=== PATIENT | male | born 1925 | race Caucasian/White ===

== ENCOUNTER 2017-06-28 15:57 | Inpatient (IN) ==
--- NOTE | 2017-06-28 16:00 | Emergency Department Note ---
Disposition Clinical Impression: HCAP (healthcare-associated pneumonia), Elevated troponin Disposition: Admitted As Inpatient Condition: Fair General Adult HPI - General Chief complaint: ED Shortness of Breath/Dyspnea Stated complaint: YAMILET, elevated troponin Time Seen by Provider: 06/28/17 15:59 - Related Data Home Medications Medication Instructions Recorded Confirmed Acetaminophen [Tylenol] 650 mg PO Q6H PRN 06/28/17 06/28/17 Alendronate Sodium [Fosamax] 70 mg PO QWEEK 06/28/17 06/28/17 Calcium Carbonate/Vitamin D3 1 each PO BID 06/28/17 06/28/17 [Calcium 250+D Tablet] Cetirizine HCl [Zyrtec] 10 mg PO DAILY 06/28/17 06/28/17 Cranberry 800 mg PO DAILY 06/28/17 06/28/17 Furosemide [Lasix] 20 mg PO DAILY 06/28/17 06/28/17 Leflunomide [Leflunomide] 10 mg PO Q48H 06/28/17 06/28/17 Memantine HCl 10 mg PO BID 06/28/17 06/28/17 Metoprolol XL (24 HR) Succ [Toprol 12.5 mg PO DAILY 06/28/17 06/28/17 XL] Potassium Chloride [Klor-Con 10] 10 meq PO DAILY 06/28/17 06/28/17 Tiotropium [Spiriva] 18 mcg IH 0700 06/28/17 06/28/17 Vit C/E/Zn/Coppr/Lutein/Zeaxan 1 cap PO BID 06/28/17 06/28/17 [Preservision Areds 2 Softgel] Xyzal 5 mg PO DAILY 06/28/17 06/28/17 Allergies Allergy/AdvReac Type Severity Reaction Status Date / Time levofloxacin [From Levaquin] Allergy See Verified 06/28/17 16:59 Comments lisinopril Allergy Swelling Verified 06/28/17 17:00 of Lip/Tongue/Throat methotrexate Allergy See Verified 06/28/17 17:00 Comments naproxen [From Aleve] Allergy Swelling Verified 06/28/17 17:00 of Lip/Tongue/Throat Donepezil [From Aricept] AdvReac See Verified 06/28/17 17:27 Comments Course Vital Signs Temperature 97.3 F L 06/28/17 15:59 Pulse Rate 78 06/28/17 15:59 Respiratory Rate 16 06/28/17 15:59 Blood Pressure 129/83 06/28/17 15:59 O2 Sat by Pulse Oximetry 92 06/28/17 15:59 Temperature 98.0 F 06/29/17 12:19 Pulse Rate 65 06/29/17 12:19 Respiratory Rate 16 06/29/17 12:19 Blood Pressure 111/58 06/29/17 12:19 O2 Sat by Pulse Oximetry 98 06/29/17 12:19 Oxygen Delivery Oxygen Delivery Room Air Medical Decision Making - Lab Data Result diagrams: 06/29/17 05:45 06/29/17 05:45 Lab Results 06/28/17 06/28/17 06/28/17 Range/Units 03:15 16:13 16:13 Lactic Acid 1.1 (0.5-2.2) mmol/L Troponin I 0.11 H* (< 0.04) ng/mL Urine Color Yellow (Yellow) Urine Clarity Clear (Clear) Urine pH 6.0 (5.0-8.0) pH Units Ur Specific [place] 1.019 (1.010-1.025) Urine Protein 30 H (Neg-Trace) mg/dL Urine Glucose (UA) Normal (Normal) mg/dL Urine Ketones Negative (Negative) mg/dL Urine Blood Moderate H (Negative) Urine Nitrite Negative (Negative) Urine Bilirubin Negative (Negative) Urine Urobilinogen Normal (Normal) mg/dL Ur Leukocyte Esterase Moderate H (Negative) Urine Microscopic RBC 3-5 H (0-3) per hpf Urine Microscopic WBC 30-50 H (0-3) per hpf Ur Squamous Epith Cells Many H (None-Few) per lpf Urine Bacteria None Seen (None-Few) per hpf Hyaline Casts None Seen (None-Few) per lpf Attestation Statement - Attestation Attestation: I examined this patient and my medical decision-making was reviewed with the Resident Physician. I agree with the documented findings, disposition and treatment plan as described except to the extent set forth below. [id number] time provided Patient arrives as a transfer from the [facility] due to suspected pneumonia and an elevated troponin. The patient does not appear in any acute distress on exam upon arrival
--- NOTE | 2017-06-28 16:05 | Emergency Department Note ---
Disposition Clinical Impression: HCAP (healthcare-associated pneumonia), Elevated troponin Disposition: Admitted As Inpatient Condition: Fair Forms: ED Satisfaction Letter Time of Disposition: 18:20 SOB HPI - General Chief Complaint: ED Shortness of Breath/Dyspnea Stated Complaint: YAMILET, elevated troponin Time Seen by Provider: 06/28/17 15:59 Source: patient, EMS Mode of arrival: EMS Limitations: age Nursing Notes Reviewed: Yes Vital Signs Reviewed: Yes - History of Present Illness Patient presents to the ED via EMS as a transfer from the [place] for pneumonia and elevated troponin. Patient history is slightly limited by difficulty hearing and age. States she has been having some trouble breathing for the past few days. Denies any chest pain. Does have a history of A. fib and is on Coumadin. States he feels okay otherwise. - Related Data Home Medications Medication Instructions Recorded Confirmed Acetaminophen [Tylenol] 650 mg PO Q6H PRN 06/28/17 06/28/17 Alendronate Sodium [Fosamax] 70 mg PO QWEEK 06/28/17 06/28/17 Calcium Carbonate/Vitamin D3 1 each PO BID 06/28/17 06/28/17 [Calcium 250+D Tablet] Cetirizine HCl [Zyrtec] 10 mg PO DAILY 06/28/17 06/28/17 Cranberry 800 mg PO DAILY 06/28/17 06/28/17 Furosemide [Lasix] 20 mg PO DAILY 06/28/17 06/28/17 Leflunomide [Leflunomide] 10 mg PO Q48H 06/28/17 06/28/17 Memantine HCl 10 mg PO BID 06/28/17 06/28/17 Metoprolol XL (24 HR) Succ [Toprol 12.5 mg PO DAILY 06/28/17 06/28/17 XL] Potassium Chloride [Klor-Con 10] 10 meq PO DAILY 06/28/17 06/28/17 Tiotropium [Spiriva] 18 mcg IH 0700 06/28/17 06/28/17 Vit C/E/Zn/Coppr/Lutein/Zeaxan 1 cap PO BID 06/28/17 06/28/17 [Preservision Areds 2 Softgel] Xyzal 5 mg PO DAILY 06/28/17 06/28/17 Allergies Allergy/AdvReac Type Severity Reaction Status Date / Time levofloxacin [From Levaquin] Allergy See Verified 06/28/17 16:59 Comments lisinopril Allergy Swelling Verified 06/28/17 17:00 of Lip/Tongue/Throat methotrexate Allergy See Verified 06/28/17 17:00 Comments naproxen [From Aleve] Allergy Swelling Verified 06/28/17 17:00 of Lip/Tongue/Throat Donepezil [From Aricept] AdvReac See Verified 06/28/17 17:27 Comments All systems ED: reviewed and negative except as stated. Constitutional: Denies: fever Cardiovascular: Denies: chest pain Respiratory: Reports: cough, dyspnea Gastrointestinal: Denies: vomiting Musculoskeletal: Denies: back pain Past Medical History - Past Medical History Attestation: Yes The following information was validated with the patient. Source: patient Physical Exam - General Limitations: age General appearance: alert, in no apparent distress - Head Head exam: atraumatic, normocephalic, normal inspection - Eye Eye exam: Present: normal appearance, PERRL, EOMI - Neck Neck exam: Present: normal inspection, full ROM - Chest Chest inspection: Present: normal inspection - Respiratory Respiratory exam: Present: other (decreased breath sounds b/l ). Absent: normal lung sounds bilaterally - Cardiovascular Cardiovascular exam: Present: irregular rhythm, systolic murmur - Abdominal Exam Abdominal exam: Present: soft, Non-Tender. Absent: tenderness, distention, guarding, rebound, rigidity - Extremities Exam Extremities exam: Present: normal inspection, full ROM. Absent: tenderness, pedal edema - Neurological Exam Neurological exam: Present: alert, oriented X3 - Psychiatric Psychiatric exam: Present: normal affect, normal mood - Skin Skin exam: Present: warm, dry, intact, normal color Course - Reevaluation(s) Reevaluation #1: Patient has pneumonia. Started on antibiotics. We will admit to the hospitalist service. Vital Signs Temperature 97.3 F L 06/28/17 15:59 Pulse Rate 78 06/28/17 15:59 Respiratory Rate 16 06/28/17 15:59 Blood Pressure 129/83 06/28/17 15:59 O2 Sat by Pulse Oximetry 92 06/28/17 15:59 Temperature 97.3 F L 06/28/17 15:59 Pulse Rate 68 06/28/17 17:40 Respiratory Rate 14 06/28/17 17:40 Blood Pressure 108/57 06/28/17 17:40 O2 Sat by Pulse Oximetry 96 06/28/17 17:40 Oxygen Delivery Oxygen Delivery Nasal Cannula Shortness of Breath/Dyspnea - Medical Records Medical records reviewed: Yes I reviewed the patient's medical records. - Lab Data Lab results reviewed: Yes I reviewed the patient's lab results. Lab Results 06/28/17 06/28/17 Range/Units 16:13 16:13 Lactic Acid 1.1 (0.5-2.2) mmol/L Troponin I 0.11 H* (< 0.04) ng/mL - Radiology Data Radiology results reviewed: Yes I reviewed the patient's radiology results. - EKG Data EKG attestation: Yes I reviewed and interpreted this EKG. EKG results narrative: Sinus rhythm with PVCs, right bundle branch block, ST-T wave changes. Septal ST /Twave changes which are similar to previous from 2010
[2017-06-28] MEDS ORDERED: Levofloxacin 500 MG/100 ML 500 MG/100 ML BAG IVPB ONE (16:51)
[2017-06-28] MEDS ORDERED: Vancomycin 1,000 MG in D5% in Water 250 ML IVPB ONE (16:51)
[2017-06-28] MEDS ORDERED: Piperacillin/Tazobactam 3.375 GM in Water for inj. (sterile) 20 ML IVP ONE (17:07)
[2017-06-28] MEDS ORDERED: Azithromycin 500 MG in D5% in Water 250 ML IVPB ONE (17:08)
[2017-06-28] MEDS ORDERED: Albuterol 2.5 MG/3 ML NEBULIZER IH PRN (20:44)
[2017-06-28] MEDS ORDERED: Acetaminophen 325 MG TABLET PO PRN (20:44)
[2017-06-28] MEDS ORDERED: Naloxone 0.4 MG/ML INJ IVP PRN (20:45)
[2017-06-28] MEDS ORDERED: NON-FORMULARY MEDICATION 1 EACH EACH (Alendronate Sodium [Fosamax] 70 MG) PO SCH (20:45)
--- NOTE | 2017-06-28 20:53 | Internal Med History&Physical ---
Date of Encounter: 06/28/17 Time of Encounter: 20:49 Assessment and Plan (1) Multifocal pneumonia Current visit: Yes Status: Acute Patient presents with dyspnea most likely secondary to multifocal pneumonia as diagnosed by chest radiograph. No prior history of structural lung disease. Has not had any recent health care facility stays or antibiotic use in the last 90 days. UA to assess for strep pne. and Legionella Send sputum for culture Emperic antibiotic therapy with vancomycin and sometime Obtain blood cultures- follow culture results CBC D and BMP in the a.m. Tylenol 650 mg by mouth every 6 hours when necessary for pain or fever Resume home medications Heparin 5000 units subcutaneous twice a day Continuous SPO2 monitoring in telemetry 2 Duonebs every 4 hours scheduled with Albuterol Q2 if persistent wheezing/SOB Serial troponin d/t elevation likely associated with Sepsis (2) Sepsis Current visit: Yes Status: Acute Sepsis secondary to PNA. Patient experiencing dyspnea, and cough productive of sputum. Additionally, he has generalized weakness as well as fatigue. Does not appear to be in respiratory distress at this time. Resting comfortably on 2.5 LNC. Remains hemodynamically stable. See plan above Qualifiers: Qualified Code(s): A41.9 - Sepsis, unspecified organism (3) Falls Current visit: Yes Status: Acute Reporting that he fell the last two morning prior to admission. Reports new generalized weakness and fatigued secondary to PNA and Sepsis. Will obtain PT/OT evaluation prior to discharge Qualifiers: Encounter type: initial encounter Qualified Code(s): W19.XXXA - Unspecified fall, initial encounter (4) Generalized weakness Current visit: Yes Status: Acute Reporting generalized weakness over the last two weeks. Additionally reporting fatigue, cough, SOB, caused by PNA and sepsis. See plan above. (5) COPD (chronic obstructive pulmonary disease) Current visit: Yes Status: Acute History of COPD. appears stable, see plan above. Qualifiers: Qualified Code(s): J44.9 - Chronic obstructive pulmonary disease, unspecified (6) Iron deficiency anemia Current visit: Yes Status: Acute Unspecified iron deficiency anemia. No prior labs for comparison. H&H is 10.5/ 33.2. Denies any active bleeding. Recheck CBCD in the morning Qualifiers: Iron deficiency anemia type: unspecified iron deficiency Qualified Code(s) : D50.9 - Iron deficiency anemia, unspecified (7) A-fib Current visit: Yes Status: Acute History of atrial fibrillation. Unsure if he is on any anticoagulation and he is a poor historian, however, I do not see any on his medication list from the [facility]. Check PT/INR Qualifiers: Atrial fibrillation type: unspecified Qualified Code(s): I48.91 - Unspecified atrial fibrillation (8) DVT prophylaxis Current visit: Yes Status: Acute Heparin 5000 units subcutaneous twice a day Internal Medicine - H&P: HPI Chief complaint: Dyspnea Admitted From: Home Plans for Post Hospital Care: Home History of present illness: Mr. Shepherd is a 89 year old male past medical history of atrial fibrillation, iron deficiency anemia, Alzheimer's disease, COPD. Presents to [facility] today from [facility] with dyspnea 2 days. All information obtained from chart review and family at bedside as the patient is mildly demented and [employer]. Family reports over the last couple of days patient has had an increase in shortness of breath, cough with sputum production and rigors. Denies any fevers, night sweats, extremity swelling/pain, edema, CP, abdominal pain, N/V/D. He has not had any recent healthcare facility stays or ATB use in the last 90 days. Additionally the family and patient are concerned that he has fallen the past two mornings. They report that during the first fall on 06/26/17 he hit his head although CT head at the [facility] was unremarkable. He is being admitted for further evaluation and monitoring d/t multiple falls and suspected PNA. Past Med Surg Social Fam HX - Past Medical History Medical history: non-contributory, arthritis, other - Past Surgical History Surgical History: appendectomy - Social History Smoking Status: Never smoker Smokeless Tobacco Status: No Alcohol use: none Drug use: none - Additional Family History Additional family history: Noncontributory Internal Medicine - H&P: Meds Acetaminophen [Tylenol] 650 mg PO Q6H PRN 06/28/17 [History] Alendronate Sodium [Fosamax] 70 mg PO QWEEK 06/28/17 [History] Calcium Carbonate/Vitamin D3 [Calcium 250+D Tablet] 1 each PO BID 06/28/17 [ History] Cetirizine HCl [Zyrtec] 10 mg PO DAILY 06/28/17 [History] Cranberry 800 mg PO DAILY 06/28/17 [History] Furosemide [Lasix] 20 mg PO DAILY 06/28/17 [History] Leflunomide [Leflunomide] 10 mg PO Q48H 06/28/17 [History] Memantine HCl 10 mg PO BID 06/28/17 [History] Metoprolol XL (24 HR) Succ [Toprol XL] 12.5 mg PO DAILY 06/28/17 [History] Potassium Chloride [Klor-Con 10] 10 meq PO DAILY 06/28/17 [History] Tiotropium [Spiriva] 18 mcg IH 0700 06/28/17 [History] Vit C/E/Zn/Coppr/Lutein/Zeaxan [Preservision Areds 2 Softgel] 1 cap PO BID 06/28 [History] Xyzal 5 mg PO DAILY 06/28/17 [History] 3 Allergy/AdvReac Type Severity Reaction Status Date / Time levofloxacin [From Levaquin] Allergy See Verified 06/28/17 16:59 Comments lisinopril Allergy Swelling Verified 06/28/17 17:00 of Lip/Tongue/Throat methotrexate Allergy See Verified 06/28/17 17:00 Comments naproxen [From Aleve] Allergy Swelling Verified 06/28/17 17:00 of Lip/Tongue/Throat Donepezil [From Aricept] AdvReac See Verified 06/28/17 17:27 Comments All Systems PM: A 10-system review of systems was performed and is negative for pertinent findings except as documented above in the HPI. Review of systems: REVIEW OF SYSTEMS GENERAL: Negative for any nausea, vomiting, fevers, chills, or weight loss. NEUROLOGIC: Negative for any blurry vision, blind spots, double vision, facial asymmetry, dysphagia, dysarthria, hemiparesis, hemisensory deficits. Positive for dizziness, generalized weakness HEENT: Negative for any head trauma, neck trauma, neck stiffness, photophobia, phonophobia, sinusitis, rhinitis. CARDIAC: Negative for any chest pain, dyspnea on exertion, paroxysmal nocturnal dyspnea, peripheral edema. PULMONARY: Positive for dyspnea, productive cough GASTROINTESTINAL: Negative for any abdominal pain, nausea, vomiting, bright red blood per rectum, melena. GENITOURINARY: Negative for any dysuria, hematuria, incontinence. INTEGUMENTARY: Negative for any rashes, cuts, insect bites. RHEUMATOLOGIC: Negative for any joint pains, photosensitive rashes, history of vasculitis or kidney problems. HEMATOLOGIC: Negative for any abnormal bruising, frequent infections or bleeding. - Constitutional Vitals: Temp Pulse Resp BP Pulse Ox 97.4 F L 92 16 148/70 95 06/28/17 20:16 06/28/17 20:16 06/28/17 20:16 06/28/17 20:16 06/28/17 20:16 General appearance: Present: cooperative, A&O X 1, answers questions appropriately Exam: PHYSICAL EXAMINATION: GENERAL: The patient is a well-developed, well-nourished male in no apparent distress. He is alert and oriented x3. VITAL SIGNS: Temperature 97.4, heart rate 92, respiratory rate 16 and 95% on 2.5 L nasal cannula, blood pressure 140/70 HEENT: Head is normocephalic and atraumatic. Extraocular muscles are intact. Pupils are equal, round, and reactive to light and accommodation. Nares appeared normal. Mouth is well hydrated and without lesions. Mucous membranes are moist. Posterior pharynx clear of any exudate or lesions. NECK: Supple. No carotid bruits. No lymphadenopathy or thyromegaly. LUNGS: Rhonchi per auscultation embolus right anterior and posterior lobe, diminished breath sounds throughout HEART: Regular rate and rhythm without murmur. ABDOMEN: Soft, nontender, and nondistended. Positive bowel sounds. No hepatosplenomegaly was noted. EXTREMITIES: Without any cyanosis, clubbing, rash, lesions or edema. NEUROLOGIC: Cranial nerves II through XII are grossly intact. PSYCHIATRIC: Flat affect, but denies suicidal or homicidal ideations. SKIN: No ulceration or induration present. Internal Med - H&P Results - EKG Data -: EKG Interpreted by Myself EKG shows normal: sinus rhythm Rate: normal - EKG Data EKG comments: 06/28/17 20:57 Sinus rhythm with PVCs - Diagnostic Studies Chest x-ray Status: image reviewed by me Additional comments: Multifocal airspace opacities are noted throughout right lung and left perihilar region. This is highly suspicious for multifocal pneumonia
[2017-06-28] MEDS: CALCIUM PO SCH (21:43)
[2017-06-28] MEDS: [UNRECOGNIZED DRUG - OTHER] PO SCH (21:43)
[2017-06-28] MEDS: LEFLUNOMIDE 10 MG PO SCH (21:43)
[2017-06-28] MEDS: Multivit/Ca/Min/Fe/FA 1 TAB TABLET PO SCH (21:49)
[2017-06-28 22:14] LABS: INR 1.5; Prothrombin Time 16.7 Seconds (9.4-12.1)
[2017-06-28] MEDS: Cefepime HCl 1,000 MG in Water for inj. (sterile) 10 ML IVP SCH (23:28)
[2017-06-28] MEDS: Ipratropium/Albuterol Neb 3 ML IH SCH (23:40)
[2017-06-28 23:55] LABS: Adenovirus Not Detected (Not Detect); Bordetella Pertussis Not Detected (Not Detect); Chlamydophila pneumoniae Not Detected (Not Detect); Coronavirus 229E Not Detected (Not Detect); Coronavirus HKU1 Not Detected (Not Detect); Coronavirus NL63 Not Detected (Not Detect); Coronavirus OC43 Not Detected (Not Detect); Human Metapneumovirus Not Detected (Not Detect); Human Rhinovirus/Enterovirus Not Detected (Not Detect); Influenza A Subtype 2009 H1 Not Detected (Not Detect); Influenza A Untypeable Not Detected (Not Detect); Influenza B Not Detected (Not Detect); Mycoplasma pneumoniae Not Detected (Not Detect); Parainfluenza Virus 1 Not Detected (Not Detect); Parainfluenza Virus 2 Not Detected (Not Detect); Parainfluenza Virus 3 Not Detected (Not Detect); Parainfluenza Virus 4 Not Detected (Not Detect); Respiratory Syncytial Virus Not Detected (Not Detect)
[2017-06-29] MEDS ORDERED: Cefepime HCl 1,000 MG in D5% in Water (Mini-Bag+) 100 ML IVPB SCH
[2017-06-29] MEDS: 0.9 % Sodium Chloride 1,000 ML IVC SCH ×2 (02:56→18:02)
[2017-06-29 03:25] LABS: Bilirubin,Urine Negative (Negative); Blood,Urine Moderate (Negative); Clarity,Urine Clear (Clear); Color,Urine Yellow (Yellow); Glucose,Urine (UA) Normal (Normal); Ketones,Urine Negative (Negative); Leukocyte Esterase,Urine Moderate (Negative); Nitrite,Urine Negative (Negative); Protein,Urine 30 mg/dL (Neg-Trace); Specific Gravity,Urine 1.019 (1.010-1.025); Urobilinogen,Urine Normal (Normal)
[2017-06-29 03:27] LABS: Bacteria,Urine None Seen per hpf (None-Few); Hyaline Casts,Urine None Seen per lpf (None-Few); Squamous Epithelial Cell,Urine Many per lpf (None-Few); WBC,Urine 30-50 per hpf (0-3)
[2017-06-29] MEDS: Ipratropium/Albuterol Neb 3 ML IH SCH ×5 (03:44→21:03)
[2017-06-29] MEDS: *HR* Heparin 5,000 UNIT/ML VIAL SQ SCH ×2 (05:56→18:01)
[2017-06-29 06:29] LABS: Basophils # 0.1 K/mcL (0.0-0.2); Basophils % 0.6 %; Eosinophils # 0.1 K/mcL (0.0-0.6); Eosinophils % 0.7 %; Hematocrit 31.7 % (37.5-50.1); Hemoglobin 9.9 g/dL (12.9-16.9); Immature Granulocytes % 0.9 % (0-4); Lymphocytes % 8.8 %; Mean Corpuscular HGB Conc 31.2 g/dL (31.6-35.5); Mean Corpuscular Hemoglobin 27.5 pg (28.0-33.3); Mean Corpuscular Volume 88.1 fL (83.0-100.0); Mean Platelet Volume 10.4 fL (9.4-12.4); Monocytes # 1.3 K/mcL (0.0-1.3); Monocytes % 11.7 %; Neutrophils # 8.4 K/mcL (1.6-8.9); Platelet Count 247 K/mcL (140-400); Red Cell Distribution Width 14.6 % (11.5-14.5); Segmented Neutrophils % 77.3 %
[2017-06-29 06:39] LABS: BUN/Creatinine Ratio 25 (6-26); Blood Urea Nitrogen 31 mg/dL (8-23); Calcium 8.6 mg/dL (8.6-10.3); Carbon Dioxide 26 mEq/L (23-29); Chloride 106 mEq/L (98-107); Glucose 89 mg/dL (70-105); Osmolality,Calculated 292 (280-300); Sodium 138 mEq/L (136-145); eGFR For African Americans > 60 (> 60); eGFR For Non-African Americans 55 (> 60)
[2017-06-29] MEDS ORDERED: Furosemide 20 MG TABLET PO SCH (09:00)
[2017-06-29] MEDS ORDERED: Vancomycin 750 MG in D5% in Water 250 ML IVPB SCH (09:00)
[2017-06-29] MEDS: Loratadine 10 MG TABLET PO SCH (09:35)
[2017-06-29] MEDS: Multivit/Ca/Min/Fe/FA 1 TAB TABLET PO SCH ×2 (09:35→20:27)
[2017-06-29] MEDS: Metoprolol XL (24 HR) Succ 25 MG TAB.ER.24H PO SCH (09:35)
[2017-06-29] MEDS: Cefepime HCl 1,000 MG in Water for inj. (sterile) 10 ML IVP SCH (09:35)
[2017-06-29] MEDS: (Xyzal 5 MG) PO SCH (09:46)
[2017-06-29] MEDS: CALCIUM PO SCH (09:47)
[2017-06-29] MEDS: [UNRECOGNIZED DRUG - OTHER] PO SCH (09:47)
--- NOTE | 2017-06-29 12:22 | Internal Med Progress Note ---
Date of Encounter: 06/29/17 Time of Encounter: 12:22 - Assessment and plan (1) Sepsis Current Visit: Yes Status: Acute Assessment and plan: Severe sepsis with bilateral multifocal pneumonia-patient had leukocytosis, troponin elevation and hypoxemia, improving Lactate level was normal. Patient's blood pressure is normal. Troponin elevation is possibly due to demand ischemia from hypoxia. EMR reviewed: No Blood cultures sent. Urinalysis shows positive leukocyte esterase and hematuria. We will send blood and urine cultures. We will continue current antibiotics: Vancomycin and Zosyn. Qualifiers: Qualified Code(s): A41.9 - Sepsis, unspecified organism (2) HCAP (healthcare-associated pneumonia) Current Visit: Yes Status: Acute Assessment and plan: As above (3) Elevated troponin Current Visit: Yes Status: Acute Assessment and plan: Adynamic EKG unremarkable Per H and P, hx of afib Obtain ECHO (4) Iron deficiency anemia Current Visit: Yes Status: Chronic Assessment and plan: HB stable Qualifiers: Iron deficiency anemia type: unspecified iron deficiency Qualified Code(s) : D50.9 - Iron deficiency anemia, unspecified (5) COPD (chronic obstructive pulmonary disease) Current Visit: Yes Status: Chronic Assessment and plan: NO wheezing on exam Continue current care Qualifiers: COPD type: unspecified COPD Qualified Code(s): J44.9 - Chronic obstructive pulmonary disease, unspecified (6) A-fib Current Visit: Yes Status: Chronic Assessment and plan: Chronic, HR controlled, no anticoagulation, possibly due to recurrent falls Await ECHO reading Qualifiers: Atrial fibrillation type: unspecified Qualified Code(s): I48.91 - Unspecified atrial fibrillation (7) DVT prophylaxis Current Visit: Yes Status: Acute Assessment and plan: Heparin SQ (8) Falls Current Visit: Yes Status: Acute Assessment and plan: PTOT eval Fall precautions Qualifiers: Encounter type: initial encounter Qualified Code(s): W19.XXXA - Unspecified fall, initial encounter (9) Acute respiratory failure with hypoxia Current Visit: Yes Status: Acute Assessment and plan: Secondary to multifocal pneumonia, continue O2 supplement Wean as tolerated Patient is full code - Subjective Interval history: Patient is seen and examined at the bedside with his spouse and his father. 89-year-old male with history of hypertension, rheumatoid arthritis, chronic obstructive pulmonary disease, atrial fibrillation, Alzheimer's disease and chronic anemia is admitted and being managed for severe sepsis secondary to bilateral multifocal pneumonia, elevated troponin and acute hypoxemic respiratory failure. Patient has difficulty hearing and legally blind. Most of history and information obtained from the electronic medical record and the family members at the bedside. They both report that the patient is clinically improving. Patient has no new complaints. - Constitutional Vitals: Temp Pulse Resp BP Pulse Ox 97.8 F 85 16 132/84 97 06/29/17 07:43 06/29/17 07:43 06/29/17 11:30 06/29/17 07:43 06/29/17 11:30 General appearance: Present: cooperative, A&O X 1, answers questions appropriately - Head Head exam: Present: atraumatic, normocephalic - Eye Eye exam: Present: PERRL, conjuntiva pink, sclera anicteric Pupils: Present: PERRL - Respiratory Respiratory exam: Present: rhonchi (transmitted and coarse) - Cardiovascular Cardiovascular exam: Present: RRR, +S1, +S2. Absent: diastolic murmur, gallop, rubs, systolic murmur - GI/Abdominal GI/Abdominal exam: Present: normal bowel sounds, soft, no peritoneal signs. Absent: distended, tenderness - Extremities Exam Extremities exam: Present: warm, radial pulses palpable and symmetrical. Absent : calf tenderness, cyanotic, pedal edema - Neurological Exam Neurological exam: Present: alert. Absent: oriented X3, pronater drift, facial droop, speech deficit - Skin Skin exam: Present: dry, intact Internal Medicine: Result - Labs CBC & Chem 7: 06/29/17 05:45 06/29/17 05:45 Labs: Short CBC 06/29/17 Range/Units 05:45 WBC 10.8 (4.3-11.1) K/mcL Hgb 9.9 L (12.9-16.9) g/dL Hct 31.7 L (37.5-50.1) % Plt Count 247 (140-400) K/mcL Neutrophils # 8.4 (1.6-8.9) K/mcL BMP 06/29/17 05:45 Sodium 138 Potassium 4.0 Chloride 106 Carbon Dioxide 26 BUN 31 H Creatinine 1.23 Glucose 89 Calcium 8.6 Cardiac Enzymes 06/28/17 06/29/17 Range/Units 21:51 05:45 Troponin I 0.08 H* 0.08 H* (< 0.04) ng/mL - ABG Interpretation ABG results: PT/INR, D-dimer PT 16.7 Seconds (9.4-12.1) H 06/28/17 21:51 Consult Discharge Plan - Plan [facility]errals[facility]Primary Care Provider[facility] -
[2017-06-29] MEDS ORDERED: Piperacillin/Tazobactam 3.375 GM in Water for inj. (sterile) 20 ML 20 ML IVP ONE (16:52)
[2017-06-29] MEDS: Vancomycin 1,000 MG in D5% in Water 250 ML IVPB SCH (18:01)
[2017-06-29] MEDS: Cefepime HCl 2,000 MG in Water for inj. (sterile) 20 ML 10 ML IVP SCH (20:27)
[2017-06-30] MEDS: Ipratropium/Albuterol Neb 3 ML IH SCH ×6 (00:45→20:00)
[2017-06-30] MEDS: CALCIUM PO SCH ×3 (01:22→21:28)
[2017-06-30] MEDS: [UNRECOGNIZED DRUG - OTHER] PO SCH ×3 (01:22→21:28)
[2017-06-30] MEDS: *HR* Heparin 5,000 UNIT/ML VIAL SQ SCH ×2 (05:29→17:59)
[2017-06-30] MEDS ORDERED: *HR* LORazepam 2 MG/ML VIAL IVP STA (05:34)
[2017-06-30 07:07] LABS: Basophils # 0.1 K/mcL (0.0-0.2); Basophils % 0.6 %; Eosinophils # 0.2 K/mcL (0.0-0.6); Eosinophils % 1.5 %; Hematocrit 29.7 % (37.5-50.1); Hemoglobin 9.3 g/dL (12.9-16.9); Immature Granulocytes % 0.9 % (0-4); Lymphocytes # 0.7 K/mcL (0.6-4.6); Lymphocytes % 7.5 %; Mean Corpuscular HGB Conc 31.3 g/dL (31.6-35.5); Mean Corpuscular Hemoglobin 27.7 pg (28.0-33.3); Mean Corpuscular Volume 88.4 fL (83.0-100.0); Mean Platelet Volume 10.3 fL (9.4-12.4); Monocytes # 0.9 K/mcL (0.0-1.3); Monocytes % 9.4 %; Neutrophils # 7.8 K/mcL (1.6-8.9); Platelet Count 273 K/mcL (140-400); Red Blood Count 3.36 M/mcL (4.19-5.50); Red Cell Distribution Width 14.6 % (11.5-14.5); Segmented Neutrophils % 80.1 %
[2017-06-30 07:33] LABS: BUN/Creatinine Ratio 25 (6-26); Blood Urea Nitrogen 33 mg/dL (8-23); Carbon Dioxide 24 mEq/L (23-29); Chloride 111 mEq/L (98-107); Glucose 122 mg/dL (70-105); Osmolality,Calculated 299 (280-300); Potassium 4.3 mEq/L (3.5-5.1); Sodium 140 mEq/L (136-145); eGFR For African Americans > 60 (> 60); eGFR For Non-African Americans 51 (> 60)
[2017-06-30] MEDS: Multivit/Ca/Min/Fe/FA 1 TAB TABLET PO SCH ×2 (09:10→21:28)
[2017-06-30] MEDS: Loratadine 10 MG TABLET PO SCH (09:10)
[2017-06-30] MEDS: Metoprolol XL (24 HR) Succ 25 MG TAB.ER.24H PO SCH (09:10)
[2017-06-30] MEDS: 0.9 % Sodium Chloride 1,000 ML IVC SCH (09:11)
[2017-06-30] MEDS: (Xyzal 5 MG) PO SCH (09:11)
--- NOTE | 2017-06-30 12:45 | Internal Med Progress Note ---
Date of Encounter: 06/30/17 Time of Encounter: 12:43 - Assessment and plan (1) Sepsis Current Visit: Yes Status: Acute Assessment and plan: Severe sepsis with bilateral multifocal pneumonia-patient had leukocytosis, troponin elevation and hypoxemia, improving Lactate level was normal. Patient's blood pressure is normal. Troponin elevation is possibly due to demand ischemia from hypoxia. EMR reviewed: Blood culture done 06/29 negative Urinalysis shows positive leukocyte esterase and hematuria. Follow urine culture We will continue current antibiotics: Vancomycin and Cefepime-day 2. Qualifiers: Qualified Code(s): A41.9 - Sepsis, unspecified organism (2) HCAP (healthcare-associated pneumonia) Current Visit: Yes Status: Acute Assessment and plan: As above (3) Elevated troponin Current Visit: Yes Status: Acute Assessment and plan: Adynamic EKG unremarkable Per H and P, hx of afib ECHO with suspected mass, recommend YOLANDE patient has no stigmata of Infective endocarditis, blood culture is negative He is on cefepime and vancomycin-Day 2 We will schedule YOLANDE for sunday 07/02 NPO from [place] 07/01/17. ECHO: Impressions: LVEF 55%. Lipomatous interatrial septum. Trileaflet aortic valve. Mildly sclerotic aortic valve leaflets. Mild mitral regurgitation. Anterior leaflet thickened, calcified, possible mass on anterior leaflet, cannot rule out vegetation, consider YOLANDE if clinically indicated Anterior leaflet thickened, calcified, possible mass on distal leaflet. Mild tricuspid regurgitation. The aortic root is mildly dilated. The aortic root is heavily calcfied, Left Ventricular Wall Motion: Rest Echo Findings The mid inferior septal and mid anterior septal rasheed were hypokinetic. All other wall segments showed normal motion (4) Iron deficiency anemia Current Visit: Yes Status: Chronic Assessment and plan: HB stable Qualifiers: Iron deficiency anemia type: unspecified iron deficiency Qualified Code(s) : D50.9 - Iron deficiency anemia, unspecified (5) COPD (chronic obstructive pulmonary disease) Current Visit: Yes Status: Chronic Assessment and plan: NO wheezing on exam Continue current care Qualifiers: COPD type: unspecified COPD Qualified Code(s): J44.9 - Chronic obstructive pulmonary disease, unspecified (6) A-fib Current Visit: Yes Status: Chronic Assessment and plan: Chronic, HR controlled, no anticoagulation, possibly due to recurrent falls ECHO noted, as in elevated troponin Qualifiers: Atrial fibrillation type: unspecified Qualified Code(s): I48.91 - Unspecified atrial fibrillation (7) DVT prophylaxis Current Visit: Yes Status: Acute Assessment and plan: Heparin SQ (8) Falls Current Visit: Yes Status: Acute Assessment and plan: PTOT eval Fall precautions Qualifiers: Encounter type: initial encounter Qualified Code(s): W19.XXXA - Unspecified fall, initial encounter (9) Acute respiratory failure with hypoxia Current Visit: Yes Status: Acute Assessment and plan: Secondary to multifocal pneumonia, continue O2 supplement Wean as tolerated Patient is full code - Subjective Interval history: Patient is seen and examined at the bedside 89-year-old male with history of hypertension, rheumatoid arthritis, chronic obstructive pulmonary disease, atrial fibrillation, Alzheimer's disease and chronic anemia is admitted and being managed for severe sepsis secondary to bilateral multifocal pneumonia, elevated troponin and acute hypoxemic respiratory failure. Patient has difficulty hearing and legally blind. Patient has no new complaints. - Constitutional Vitals: Temp Pulse Resp BP Pulse Ox 97.8 F 125 20 149/80 93 06/30/17 12:24 06/30/17 12:24 06/30/17 12:24 06/30/17 12:24 06/30/17 12:24 General appearance: Present: cooperative, A&O X 1, answers questions appropriately - Head Head exam: Present: atraumatic, normocephalic - Eye Eye exam: Present: PERRL, conjuntiva pink, sclera anicteric Pupils: Present: PERRL - Neck Neck exam general surgery: Present: supple, trachea midline. Absent: lymphadenopathy - Respiratory Respiratory exam: Present: rhonchi - Cardiovascular Cardiovascular exam: Present: RRR, +S1, +S2. Absent: diastolic murmur, gallop, rubs, systolic murmur - GI/Abdominal GI/Abdominal exam: Present: normal bowel sounds, soft, no peritoneal signs. Absent: distended, tenderness - Extremities Exam Extremities exam: Present: warm, radial pulses palpable and symmetrical. Absent : calf tenderness, cyanotic, pedal edema - Neurological Exam Neurological exam: Present: alert, CN II-XII intact, no focal deficits. Absent : oriented X3, pronater drift, facial droop, speech deficit - Skin Skin exam: Present: dry, intact Internal Medicine: Result - Labs CBC & Chem 7: 06/30/17 06:42 06/30/17 06:42 Labs: Short CBC 06/30/17 Range/Units 06:42 WBC 9.8 (4.3-11.1) K/mcL Hgb 9.3 L (12.9-16.9) g/dL Hct 29.7 L (37.5-50.1) % Plt Count 273 (140-400) K/mcL Neutrophils # 7.8 (1.6-8.9) K/mcL BMP 06/30/17 06:42 Sodium 140 Potassium 4.3 Chloride 111 H Carbon Dioxide 24 BUN 33 H Creatinine 1.33 H Glucose 122 H Calcium 8.0 L - ABG Interpretation ABG results: PT/INR, D-dimer PT 16.7 Seconds (9.4-12.1) H 06/28/17 21:51 - Impressions Impressions Echocardiogram 06/29/17 08:08 Impressions: LVEF 55%. Lipomatous interatrial septum. Trileaflet aortic valve. Mildly sclerotic aortic valve leaflets. Mild mitral regurgitation. Anterior leaflet thickened, calcified, possible mass on anterior leaflet, cannot rule out vegetation, consider YOLANDE if clinically indicated Anterior leaflet thickened, calcified, possible mass on distal leaflet. Mild tricuspid regurgitation. The aortic root is mildly dilated. The aortic root is heavily calcfied, Left Ventricular Wall Motion: Rest Echo Findings The mid inferior septal and mid anterior septal rasheed were hypokinetic. All other wall segments showed normal motion. Findings: Study Quality * Technically sub-optimal due to poor echocardiographic windows. ECG Findings * Normal sinus rhythm. Left Ventricle * LVEF 55%. * Normal LV chamber size, wall thickness and function. Right Ventricle * Normal right ventricular structure and function. Left Atrium * Normal left atrial size. Right Atrium * Normal right atrial size. Interatrial Septum * Lipomatous interatrial septum. Aortic Valve * Trileaflet aortic valve. * Mildly calcified aortic valve leaflets. * Mildly sclerotic aortic valve leaflets. * Mild aortic regurgitation. * No aortic stenosis. Mitral Valve * Mildly calcified mitral valve leaflets. * Mild mitral regurgitation. * Leaflets are restricted. * Anterior leaflet thickened, calcified, possible mass on anterior leaflet, cannot rule out vegetation, consider YOLANDE if clinically indicated Tricuspid Valve * Normal tricuspid valve structure and function. * Mild tricuspid regurgitation. Pulmonic Valve * Pulmonic valve is not well visualized. Aorta * The aortic root is mildly dilated. * heavily calcfied, Pericardium * There is no pericardial effusion present. * The pericardium appears normal. Consult Discharge Plan - Plan [facility]errals: [facility] [Primary Care Provider[facility] -
[2017-06-30] MEDS: Vancomycin 1,250 MG in D5% in Water 250 ML IVPB SCH (17:59)
[2017-06-30] MEDS: Vancomycin 1,000 MG in D5% in Water 250 ML IVPB SCH (18:00)
[2017-06-30] MEDS: LEFLUNOMIDE 10 MG PO SCH (21:26)
[2017-06-30] MEDS: Cefepime HCl 2,000 MG in Water for inj. (sterile) 20 ML 10 ML IVP SCH (21:27)
[2017-06-30] MEDS ORDERED: 0.9 % Sodium Chloride 500 ML IVC ONE (21:46)
[2017-07-01] MEDS: Ipratropium/Albuterol Neb 3 ML IH SCH ×7 (00:31→23:42)
[2017-07-01] MEDS: 0.9 % Sodium Chloride 1,000 ML IVC SCH ×2 (02:45→22:15)
[2017-07-01] MEDS: *HR* Heparin 5,000 UNIT/ML VIAL SQ SCH ×2 (06:39→17:59)
[2017-07-01] MEDS: Multivit/Ca/Min/Fe/FA 1 TAB TABLET PO SCH ×2 (08:46→22:15)
[2017-07-01] MEDS: Loratadine 10 MG TABLET PO SCH (08:46)
[2017-07-01] MEDS: Metoprolol XL (24 HR) Succ 25 MG TAB.ER.24H PO SCH (08:47)
[2017-07-01] MEDS: CALCIUM PO SCH ×2 (08:48→22:36)
[2017-07-01] MEDS: (Xyzal 5 MG) PO SCH (08:48)
[2017-07-01] MEDS: [UNRECOGNIZED DRUG - OTHER] PO SCH ×2 (08:48→22:36)
[2017-07-01] MEDS ORDERED: Aminoglycoside Consult 1 EACH MC ONE (08:52)
[2017-07-01 09:06] LABS: Basophils # 0.1 K/mcL (0.0-0.2); Basophils % 0.9 %; Eosinophils # 0.4 K/mcL (0.0-0.6); Eosinophils % 3.6 %; Hematocrit 31.6 % (37.5-50.1); Hemoglobin 9.8 g/dL (12.9-16.9); Immature Granulocytes % 1.2 % (0-4); Immature Platelets 1.5 % (1.1-6.1); Lymphocytes # 0.9 K/mcL (0.6-4.6); Lymphocytes % 8.4 %; Mean Corpuscular Hemoglobin 28.1 pg (28.0-33.3); Mean Corpuscular Volume 90.5 fL (83.0-100.0); Mean Platelet Volume 10.2 fL (9.4-12.4); Monocytes % 9.1 %; Neutrophils # 8.4 K/mcL (1.6-8.9); Platelet Count 320 K/mcL (140-400); Red Blood Count 3.49 M/mcL (4.19-5.50); Red Cell Distribution Width 14.7 % (11.5-14.5); Segmented Neutrophils % 76.8 %
[2017-07-01 09:21] LABS: BUN/Creatinine Ratio 22 (6-26); Blood Urea Nitrogen 25 mg/dL (8-23); Calcium 7.9 mg/dL (8.6-10.3); Carbon Dioxide 24 mEq/L (23-29); Chloride 110 mEq/L (98-107); Glucose 107 mg/dL (70-105); Osmolality,Calculated 295 (280-300); Potassium 4.1 mEq/L (3.5-5.1); Sodium 140 mEq/L (136-145); eGFR For African Americans > 60 (> 60); eGFR For Non-African Americans > 60 (> 60)
--- NOTE | 2017-07-01 09:28 | Internal Med Progress Note ---
<Marshal George - Last Filed: 07/01/17 13:04> Date of Encounter: 07/01/17 Time of Encounter: 09:15 - Assessment and plan (1) Sepsis Current Visit: Yes Status: Acute Assessment and plan: Severe sepsis with bilateral multifocal pneumonia-patient had leukocytosis, troponin elevation and hypoxemia, improving Lactate level normal. Patient's blood pressure is normal. Troponin elevation is possibly due to demand ischemia from hypoxia and atrial fibrillation Blood culture done 06/29 negative Urinalysis shows positive leukocyte esterase and hematuria Follow urine culture We will continue current antibiotics: Vancomycin and Cefepime-day 3 Qualifiers: Sepsis type: sepsis due to unspecified organism Qualified Code(s): A41.9 - Sepsis, unspecified organism (2) HCAP (healthcare-associated pneumonia) Current Visit: Yes Status: Acute Assessment and plan: Plan as above (3) Elevated troponin Current Visit: Yes Status: Acute Assessment and plan: Adynamic, likely due to demand ischemia EKG unremarkable Per H&P, hx of afib ECHO with suspected mass, recommend YOLANDE patient has no stigmata of Infective endocarditis, blood culture is negative He is on cefepime and vancomycin-Day 3 We will schedule YOLANDE for saturday07/02/17 NPO from [place] 07/01/17. ECHO: Impressions: LVEF 55%. Lipomatous interatrial septum. Trileaflet aortic valve. Mildly sclerotic aortic valve leaflets. Mild mitral regurgitation. Anterior leaflet thickened, calcified, possible mass on anterior leaflet, cannot rule out vegetation, consider YOLANDE if clinically indicated Anterior leaflet thickened, calcified, possible mass on distal leaflet. Mild tricuspid regurgitation. The aortic root is mildly dilated. The aortic root is heavily calcfied, Left Ventricular Wall Motion: Rest Echo Findings The mid inferior septal and mid anterior septal rasheed were hypokinetic. All other wall segments showed normal motion (4) Iron deficiency anemia Current Visit: Yes Status: Chronic Assessment and plan: Hgb stable Qualifiers: Iron deficiency anemia type: unspecified iron deficiency Qualified Code(s) : D50.9 - Iron deficiency anemia, unspecified (5) COPD (chronic obstructive pulmonary disease) Current Visit: Yes Status: Chronic Assessment and plan: NO wheezing on exam Continue current care Qualifiers: COPD type: unspecified COPD Qualified Code(s): J44.9 - Chronic obstructive pulmonary disease, unspecified (6) A-fib Current Visit: Yes Status: Chronic Assessment and plan: Chronic, HR controlled, no anticoagulation, possibly due to recurrent falls ECHO noted, as in elevated troponin Qualifiers: Atrial fibrillation type: unspecified Qualified Code(s): I48.91 - Unspecified atrial fibrillation (7) Acute respiratory failure with hypoxia Current Visit: Yes Status: Acute Assessment and plan: Secondary to multifocal pneumonia, continue O2 supplement Wean as tolerated Patient is full code (8) Falls Current Visit: Yes Status: Acute Assessment and plan: PT/OT eval Fall precautions Qualifiers: Encounter type: initial encounter Qualified Code(s): W19.XXXA - Unspecified fall, initial encounter (9) DVT prophylaxis Current Visit: Yes Status: Acute Assessment and plan: 5000 units Heparin SQ - Subjective Interval history: Patient seen and examined at bedside 89-year-old male with history of hypertension, RA, COPD, A. fib, Alzheimer's, chronic anemia was admitted on 06/28/17 with multifocal pneumonia, sepsis, elevated troponin, initial fibrillation. Patient found to have possible mass/vegetation on mitral valve leaflet, though inadequately visualized on TTE. Patient doing well this morning and is interested in having full workup was in the hospital. No complaints of fever/chills. No comprises shortness of breath. No new complaints today - Constitutional Vitals: Temp Pulse Resp BP Pulse Ox 98.9 F 79 16 122/77 92 07/01/17 07:48 07/01/17 07:48 07/01/17 07:54 07/01/17 07:48 07/01/17 07:54 General appearance: Present: cooperative, A&O X 1, answers questions appropriately Exam: General: Cooperative, pleasant, no acute distress, alert and oriented 1 HEENT: Normocephalic, atraumatic, Conjunctiva pink, sclera anicteric Respiratory: No accessory muscle usage, no adventitious breath sounds on auscultation Cardiovascular: Irregular, S1 and S2 present, no murmurs/rubs/gallops/clicks appreciated GI/abdominal: Nondistended, nontender, soft, normal bowel sounds, no peritoneal signs Extremities: No calf tenderness, noncyanotic, no pedal edema appreciated, warm, lower extremity pulses palpable and symmetrical Neurological: no facial droop, no focal deficits Skin: Dry, intact, normal color Internal Medicine: Result - Labs CBC & Chem 7: 07/01/17 08:43 07/01/17 08:43 Labs: Short CBC 07/01/17 Range/Units 08:43 WBC 10.9 (4.3-11.1) K/mcL Hgb 9.8 L (12.9-16.9) g/dL Hct 31.6 L (37.5-50.1) % Plt Count 320 (140-400) K/mcL Neutrophils # 8.4 (1.6-8.9) K/mcL BMP 07/01/17 08:43 Sodium 140 Potassium 4.1 Chloride 110 H Carbon Dioxide 24 BUN 25 H Creatinine 1.13 Glucose 107 H Calcium 7.9 L - ABG Interpretation ABG results: PT/INR, D-dimer PT 16.7 Seconds (9.4-12.1) H 06/28/17 21:51 Consult Discharge Plan - Plan [facility]errals: [facility] [Primary Care Provider] - <Jef Carlin - Last Filed: 07/01/17 13:24> Date of Encounter: 07/01/17 - Assessment and plan (1) Sepsis Current Visit: Yes Status: Acute Qualifiers: Sepsis type: sepsis due to unspecified organism Qualified Code(s): A41.9 - Sepsis, unspecified organism (2) HCAP (healthcare-associated pneumonia) Current Visit: Yes Status: Acute (3) Elevated troponin Current Visit: Yes Status: Acute (4) Iron deficiency anemia Current Visit: Yes Status: Chronic Qualifiers: Iron deficiency anemia type: unspecified iron deficiency Qualified Code(s) : D50.9 - Iron deficiency anemia, unspecified (5) COPD (chronic obstructive pulmonary disease) Current Visit: Yes Status: Chronic Qualifiers: COPD type: unspecified COPD Qualified Code(s): J44.9 - Chronic obstructive pulmonary disease, unspecified (6) A-fib Current Visit: Yes Status: Chronic Qualifiers: Atrial fibrillation type: unspecified Qualified Code(s): I48.91 - Unspecified atrial fibrillation (7) DVT prophylaxis Current Visit: Yes Status: Acute (8) Falls Current Visit: Yes Status: Acute Qualifiers: Encounter type: initial encounter Qualified Code(s): W19.XXXA - Unspecified fall, initial encounter (9) Acute respiratory failure with hypoxia Current Visit: Yes Status: Acute - Constitutional Vitals: Temp Pulse Resp BP Pulse Ox 98.0 F 54 17 135/78 100 07/01/17 11:19 07/01/17 11:19 07/01/17 11:19 07/01/17 11:19 07/01/17 11:19 Internal Medicine: Result - Labs CBC & Chem 7: 07/01/17 08:43 07/01/17 08:43 Labs: Short CBC 07/01/17 Range/Units 08:43 WBC 10.9 (4.3-11.1) K/mcL Hgb 9.8 L (12.9-16.9) g/dL Hct 31.6 L (37.5-50.1) % Plt Count 320 (140-400) K/mcL Neutrophils # 8.4 (1.6-8.9) K/mcL BMP 07/01/17 08:43 Sodium 140 Potassium 4.1 Chloride 110 H Carbon Dioxide 24 BUN 25 H Creatinine 1.13 Glucose 107 H Calcium 7.9 L - ABG Interpretation ABG results: PT/INR, D-dimer PT 16.7 Seconds (9.4-12.1) H 06/28/17 21:51 - Attending Attestation I have independently seen and examined this patient on 07/01/17 and discussed plan of care with the patient and resident 89 M admitted for severe sepsis with lactic acidosis secondary to acute hypoxic resp failure and pneumonia, he has a PMH of COPD, Afib, HTN, Dementia, Legally blind and hard of hearing Incidental finding of mass/vegeation on MV from TTE done 06/30/17 Awaiting YOLANDE No new complains today Physical exam: VSS, afebrile, not in distress, speaks full sentences, alert, oriented X2, frail. Chest is CTAB, HS S1, S2 only, no m/g/r, abdomen is soft and not tender, no pedal edema labs and Imaging reviewed: Unremarkable Plan: Continue vanco and cefepime, blood culture is negative, no stigmata or suspicion of Infective endocarditis, patient is hemodynamically stable. YOLANDE scheduled for 07/02/17 Rest as in resident physician's documentation
[2017-07-01] MEDS: Vancomycin 1,250 MG in D5% in Water 250 ML IVPB SCH (17:53)
[2017-07-01] MEDS: Cefepime HCl 2,000 MG in Water for inj. (sterile) 20 ML 10 ML IVP SCH (22:14)
[2017-07-01] MEDS: *HR* LORazepam 1 MG TABLET PO PRN (23:25)
[2017-07-02] MEDS: Ipratropium/Albuterol Neb 3 ML IH SCH ×6 (03:29→23:44)
[2017-07-02] MEDS: *HR* Heparin 5,000 UNIT/ML VIAL SQ SCH ×2 (05:40→17:40)
[2017-07-02 05:43] LABS: BUN/Creatinine Ratio 22 (6-26); Blood Urea Nitrogen 23 mg/dL (8-23); Calcium 7.6 mg/dL (8.6-10.3); Carbon Dioxide 23 mEq/L (23-29); Chloride 113 mEq/L (98-107); Glucose 109 mg/dL (70-105); Osmolality,Calculated 296 (280-300); Potassium 4.2 mEq/L (3.5-5.1); Sodium 141 mEq/L (136-145); eGFR For African Americans > 60 (> 60); eGFR For Non-African Americans > 60 (> 60)
[2017-07-02 05:44] LABS: Basophils # 0.1 K/mcL (0.0-0.2); Basophils % 0.8 %; Eosinophils # 0.6 K/mcL (0.0-0.6); Eosinophils % 6.2 %; Hematocrit 28.7 % (37.5-50.1); Hemoglobin 8.9 g/dL (12.9-16.9); Immature Granulocytes % 1.7 % (0-4); Lymphocytes # 0.9 K/mcL (0.6-4.6); Mean Corpuscular Hemoglobin 27.8 pg (28.0-33.3); Mean Corpuscular Volume 89.7 fL (83.0-100.0); Neutrophils # 7.4 K/mcL (1.6-8.9); Platelet Count 274 K/mcL (140-400); Red Cell Distribution Width 14.6 % (11.5-14.5); Segmented Neutrophils % 72.3 %
[2017-07-02] MEDS ORDERED: Cefepime HCl 2,000 MG in Water for inj. (sterile) 20 ML 10 ML IVP SCH (09:00)
--- NOTE | 2017-07-02 09:06 | Internal Med Progress Note ---
<Marshal George - Last Filed: 07/02/17 09:04> Date of Encounter: 07/02/17 Time of Encounter: 08:15 - Assessment and plan (1) Sepsis Current Visit: Yes Status: Acute Assessment and plan: Severe sepsis with bilateral multifocal pneumonia-patient had leukocytosis, troponin elevation and hypoxemia, resolved Lactate level normal. Patient's blood pressure is normal. Troponin elevation is possibly due to demand ischemia from hypoxia and atrial fibrillation Blood culture done 06/29 preliminarily negative Urinalysis shows positive leukocyte esterase and hematuria Follow urine culture We will continue current antibiotics: Vancomycin and Cefepime-day 4, for today will de-escalate to ceftriaxone YOLANDE negative Qualifiers: Sepsis type: sepsis due to unspecified organism Qualified Code(s): A41.9 - Sepsis, unspecified organism (2) HCAP (healthcare-associated pneumonia) Current Visit: Yes Status: Acute Assessment and plan: Plan as above (3) Elevated troponin Current Visit: Yes Status: Acute Assessment and plan: Adynamic, likely due to demand ischemia EKG unremarkable Per H&P, hx of afib ECHO with suspected mass, recommend YOLANDE patient has no stigmata of Infective endocarditis, blood culture is negative He is on cefepime and vancomycin-Day 3 We will schedule YOLANDE for saturday07/02/17 NPO from ID 07/01/17. ECHO: Impressions: LVEF 55%. Lipomatous interatrial septum. Trileaflet aortic valve. Mildly sclerotic aortic valve leaflets. Mild mitral regurgitation. Anterior leaflet thickened, calcified, possible mass on anterior leaflet, cannot rule out vegetation, consider YOLANDE if clinically indicated Anterior leaflet thickened, calcified, possible mass on distal leaflet. Mild tricuspid regurgitation. The aortic root is mildly dilated. The aortic root is heavily calcfied, Left Ventricular Wall Motion: Rest Echo Findings The mid inferior septal and mid anterior septal rasheed were hypokinetic. All other wall segments showed normal motion Patient will receive YOLANDE today (4) Iron deficiency anemia Current Visit: Yes Status: Chronic Assessment and plan: Hgb stable Qualifiers: Iron deficiency anemia type: unspecified iron deficiency Qualified Code(s) : D50.9 - Iron deficiency anemia, unspecified (5) COPD (chronic obstructive pulmonary disease) Current Visit: Yes Status: Chronic Assessment and plan: NO wheezing on exam Continue current care Qualifiers: COPD type: unspecified COPD Qualified Code(s): J44.9 - Chronic obstructive pulmonary disease, unspecified (6) A-fib Current Visit: Yes Status: Chronic Assessment and plan: Chronic, HR controlled, no anticoagulation, possibly due to recurrent falls ECHO noted, as in elevated troponin Qualifiers: Atrial fibrillation type: unspecified Qualified Code(s): I48.91 - Unspecified atrial fibrillation (7) Acute respiratory failure with hypoxia Current Visit: Yes Status: Acute Assessment and plan: Secondary to multifocal pneumonia, continue O2 supplement Wean as tolerated Patient is full code (8) Falls Current Visit: Yes Status: Acute Assessment and plan: PT/OT eval Fall precautions Qualifiers: Encounter type: initial encounter Qualified Code(s): W19.XXXA - Unspecified fall, initial encounter (9) DVT prophylaxis Current Visit: Yes Status: Acute Assessment and plan: 5000 units Heparin SQ - Time Spent With Patient 25 - 35 minutes - Subjective Interval history: 89-year-old male with history of hypertension, RA, COPD, A. fib, Alzheimer's, chronic anemia was admitted on 06/28/17 with multifocal pneumonia, sepsis, elevated troponin, initial fibrillation. Patient found to have possible mass/vegetation on mitral valve leaflet, though inadequately visualized on TTE. Patient seen and examined bedside this morning. Patient asleep but easily arousable. Using his mouth breather while sleeping, does not appear to be breathing through her nose. Patient has no complaints this morning. Patient scheduled for YOLANDE later this morning and if clear patient stable for discharge. - Constitutional Vitals: Temp Pulse Resp BP Pulse Ox 98.3 F 89 16 137/71 97 07/02/17 06:56 07/02/17 06:56 07/02/17 08:25 07/02/17 06:56 07/02/17 08:25 General appearance: Present: cooperative, A&O X 1, answers questions appropriately Exam: General: Cooperative, pleasant, no acute distress, alert and oriented 1 HEENT: Normocephalic, atraumatic, Conjunctiva pink, sclera anicteric Respiratory: No accessory muscle usage, no adventitious breath sounds on auscultation Cardiovascular: Irregular, S1 and S2 present, no murmurs/rubs/gallops/clicks appreciated GI/abdominal: Nondistended, nontender, soft, normal bowel sounds, no peritoneal signs Extremities: No calf tenderness, noncyanotic, no pedal edema appreciated, warm, lower extremity pulses palpable and symmetrical Neurological: no facial droop, no focal deficits Skin: Dry, intact, normal color Internal Medicine: Result - Labs CBC & Chem 7: 07/02/17 05:11 07/02/17 05:11 Labs: Short CBC 07/01/17 07/02/17 Range/Units 08:43 05:11 WBC 10.9 10.2 (4.3-11.1) K/mcL Hgb 9.8 L 8.9 L (12.9-16.9) g/dL Hct 31.6 L 28.7 L (37.5-50.1) % Plt Count 320 274 (140-400) K/mcL Neutrophils # 8.4 7.4 (1.6-8.9) K/mcL BMP 07/01/17 07/02/17 08:43 05:11 Sodium 140 141 Potassium 4.1 4.2 Chloride 110 H 113 H Carbon Dioxide 24 23 BUN 25 H 23 Creatinine 1.13 1.05 Glucose 107 H 109 H Calcium 7.9 L 7.6 L - ABG Interpretation ABG results: PT/INR, D-dimer PT 16.7 Seconds (9.4-12.1) H 06/28/17 21:51 Consult Discharge Plan - Plan Additional Instructions: Return to hospital if worsening shortness of breath, abdominal chest pain, development of fever, or development of productive cough Take all medications as prescribed: Azithromycin 500 mg 1 day, followed by 250 mg for 4 days Omnicef 300 mg twice a day for 6 days Albuterol nebulizer every 4-6 hours for 7 days Additional orbital nebulizer every 2 hours if needed for additional shortness of breath Continue previous Spiriva Please follow-up with her PCP in 1-2 weeks [facility]: [facility] Provider[facility] - 07/05/17 2:30 pm (Please follow up as schedule...) Prescriptions: Albuterol Neb [Proventil Neb] 2.5 mg IH Q2H PRN #50 vial.neb PRN Reason: Shortness Of Breath Albuterol Neb [Proventil Neb] 2.5 mg IH Q4H #42 inhsol Azithromycin [Azithromycin 6-Tab Pack] 250 mg PO PER PKG DI #6 tab Cefdinir [Omnicef] 300 mg PO BID #12 capsule <Jef Carlin - Last Filed: 07/02/17 15:29> Date of Encounter: 07/02/17 - Assessment and plan (1) Sepsis Current Visit: Yes Status: Resolved Qualifiers: Sepsis type: sepsis due to unspecified organism Qualified Code(s): A41.9 - Sepsis, unspecified organism (2) HCAP (healthcare-associated pneumonia) Current Visit: Yes Status: Acute (3) Elevated troponin Current Visit: Yes Status: Acute (4) Iron deficiency anemia Current Visit: Yes Status: Chronic Qualifiers: Iron deficiency anemia type: unspecified iron deficiency Qualified Code(s) : D50.9 - Iron deficiency anemia, unspecified (5) COPD (chronic obstructive pulmonary disease) Current Visit: Yes Status: Chronic Qualifiers: COPD type: unspecified COPD Qualified Code(s): J44.9 - Chronic obstructive pulmonary disease, unspecified (6) A-fib Current Visit: Yes Status: Chronic Qualifiers: Atrial fibrillation type: unspecified Qualified Code(s): I48.91 - Unspecified atrial fibrillation (7) DVT prophylaxis Current Visit: Yes Status: Acute (8) Falls Current Visit: Yes Status: Chronic Qualifiers: Encounter type: initial encounter Qualified Code(s): W19.XXXA - Unspecified fall, initial encounter (9) Acute respiratory failure with hypoxia Current Visit: Yes Status: Resolved - Constitutional Vitals: Temp Pulse Resp BP Pulse Ox 98.5 F 88 20 135/74 93 07/02/17 11:22 07/02/17 11:22 07/02/17 11:22 07/02/17 11:22 07/02/17 14:28 Internal Medicine: Result - Labs CBC & Chem 7: 07/02/17 05:11 07/02/17 05:11 Labs: Short CBC 07/02/17 Range/Units 05:11 WBC 10.2 (4.3-11.1) K/mcL Hgb 8.9 L (12.9-16.9) g/dL Hct 28.7 L (37.5-50.1) % Plt Count 274 (140-400) K/mcL Neutrophils # 7.4 (1.6-8.9) K/mcL BMP 07/02/17 05:11 Sodium 141 Potassium 4.2 Chloride 113 H Carbon Dioxide 23 BUN 23 Creatinine 1.05 Glucose 109 H Calcium 7.6 L - ABG Interpretation ABG results: PT/INR, D-dimer PT 16.7 Seconds (9.4-12.1) H 06/28/17 21:51 - Attending Attestation I have independently seen and examined this patient on 07/02/17 and discussed plan of care with the patient and resident 89 M admitted for severe sepsis with lactic acidosis secondary to acute hypoxic resp failure and pneumonia, he has a PMH of COPD, Afib, HTN, Dementia, Legally blind and hard of hearing Incidental finding of mass/vegeation on MV from TTE done 06/30/17 No new complains today He remains hypoxic, but otherwise stable Per automotive quality manager Dr. Mike, patient's TTE shows calcifications and not vegetations, there is very low suspicion for infective endocarditis, he has no peripheral stigmata of same, his blood cultures are negative, he has no new murmurs. At this time, we will defer YOLANDE Physical exam: VSS, afebrile, not in distress, speaks full sentences, alert, oriented X2, frail. Chest is CTAB, HS S1, S2 only, no m/g/r, abdomen is soft and not tender, no pedal edema labs and Imaging reviewed: Unremarkable, stable Plan: Deescalate antibiotics to omnicef and azithromycin Qualify for home O2 Per PTOT, patient is for home health, SW aware. Medically stable for discharge when home o2 is ready/Home health is set up Rest as in resident physician's documentation
--- NOTE | 2017-07-02 11:09 | Electrocardiograph Report ---
[place] [id number] Test Date: 2017-06-28 Pat Name: Jairo Shepherd Department: 104 Room: 2A24 Gender: M End Stapler: [place] : 1925 Requested By: Jignesh Pagan Order Number: [id number] Reading MD: Marin Mike DO Measurements Intervals [place] Rate: 77 P: 95 ID: [id number] QRS: -68 QRSD: 137 T: 20 QT: 415 QTc: 447 Interpretive Statements SINUS RHYTHM WITH OCCASIONAL SUPRAVENTRICULAR PREMATURE COMPLEXES RIGHT BUNDLE BRANCH BLOCK LEFT ANTERIOR FASCICULAR BLOCK PROMINENT SEPTAL T WAVES, CORRELATE CLINICALLY Electronically Signed On 07-02-2017 11:08:35 EST by Marin Mike DO
[2017-07-02] MEDS: Metoprolol XL (24 HR) Succ 25 MG TAB.ER.24H PO SCH (11:50)
[2017-07-02] MEDS: cefTRIAXone 1,000 MG in Water for inj. (sterile) 20 ML 10 ML IVP SCH (11:50)
[2017-07-02] MEDS: Azithromycin 500 MG in D5% in Water 250 ML IVPB SCH (11:51)
[2017-07-02] MEDS: Multivit/Ca/Min/Fe/FA 1 TAB TABLET PO SCH ×2 (11:51→20:20)
[2017-07-02] MEDS: Loratadine 10 MG TABLET PO SCH (11:51)
--- NOTE | 2017-07-02 13:08 | Physician Discharge Referral ---
Home Health/Hosp Referral Info Transfer to: Home Health Provider in Charge Post Discharge: PCP - Diagnosis (1) Sepsis Priority: Primary Status: Resolved (2) HCAP (healthcare-associated pneumonia) Priority: Primary Status: Acute (3) Elevated troponin Priority: Secondary Status: Acute (4) Iron deficiency anemia Priority: Primary Status: Chronic (5) COPD (chronic obstructive pulmonary disease) Priority: Primary Status: Chronic (6) A-fib Priority: Primary Status: Chronic (7) Acute respiratory failure with hypoxia Priority: Primary Status: Resolved (8) Falls Priority: Primary Status: Chronic (9) DVT prophylaxis Priority: Secondary Status: Acute - Respiratory Orders Oxygen / L per min (3 L/min) Smoking Cessation: Smoking cessation has been advised. For more information, call the [email or web address] Quit Line at [phone]-NOW. - Diet/Nutrition Diet/Nutrition Orders: Cardiac - Activity Activity Orders: Walker - Services Needed Following services are medically necessary services: Nursing, Home Health Aide, Physical Therapy, Occupational Therapy - Transfer Medications Prescriptions: Albuterol Neb [Proventil Neb] 2.5 mg IH Q2H PRN #50 vial.neb PRN Reason: Shortness Of Breath Albuterol Neb [Proventil Neb] 2.5 mg IH Q4H #42 inhsol Azithromycin [Azithromycin 6-Tab Pack] 250 mg PO PER PKG DI #6 tab Cefdinir [Omnicef] 300 mg PO BID #12 capsule Home Medications: Acetaminophen [Tylenol] 650 mg PO Q6H PRN 06/28/17 [History] Alendronate Sodium [Fosamax] 70 mg PO QWEEK 06/28/17 [History] Calcium Carbonate/Vitamin D3 [Calcium 250+D Tablet] 1 each PO BID 06/28/17 [ History] Cetirizine HCl [Zyrtec] 10 mg PO DAILY 06/28/17 [History] Cranberry 800 mg PO DAILY 06/28/17 [History] Furosemide [Lasix] 20 mg PO DAILY 06/28/17 [History] Leflunomide 10 mg PO Q48H 06/28/17 [History] Memantine HCl 10 mg PO BID 06/28/17 [History] Metoprolol XL (24 HR) Succ [Toprol Xl] 12.5 mg PO DAILY 06/28/17 [History] Potassium Chloride [Klor-Con 10] 10 meq PO DAILY 06/28/17 [History] Tiotropium [Spiriva] 18 mcg IH 0700 06/28/17 [History] Vit C/E/Zn/Coppr/Lutein/Zeaxan [Preservision Areds 2 Softgel] 1 cap PO BID 06/28 [History] Xyzal 5 mg PO DAILY 06/28/17 [History] Albuterol Neb [Proventil Neb] 2.5 mg IH Q2H PRN #50 vial.neb 07/02/17 [Rx] Albuterol Neb [Proventil Neb] 2.5 mg IH Q4H #42 inhsol 07/02/17 [Rx] Azithromycin [Azithromycin 6-Tab Pack] 250 mg PO PER PKG DI #6 tab 07/02/17 [Rx] Cefdinir [Omnicef] 300 mg PO BID #12 capsule 07/02/17 [Rx] Allergies/Adverse Reactions: 3 Allergy/AdvReac Type Severity Reaction Status Date / Time levofloxacin [From Levaquin] Allergy See Verified 06/28/17 16:59 Comments lisinopril Allergy Swelling Verified 06/28/17 17:00 of Lip/Tongue/Throat methotrexate Allergy See Verified 06/28/17 17:00 Comments naproxen [From Aleve] Allergy Swelling Verified 06/28/17 17:00 of Lip/Tongue/Throat Donepezil [From Aricept] AdvReac See Verified 06/28/17 17:27 Comments Certification: Further, I certify that my clinical findings support that this patient is homebound (i.e. absences from home require considerable and taxing effort and are for medical reasons or zoroastrianism services or infrequently or short duration when for other reasons) because: Homebound Reason: Leaving home requires considerable and taxing effort due to condition, Altered mental status requiring supervision when leaving home, Severity of cardiac or pulmonary status limits activity tolerance Attestation: My signature below is to certify that this patient is under my care and that I, or nurse practitioner, or a physician's orthopaedic physician assistant working with me, has a face-to -face encounter with this patient.
--- NOTE | 2017-07-02 13:08 | Discharge Summary ---
Date of Encounter: 07/02/17 Time of Encounter: 09:15 - Discharge Diagnosis (1) Sepsis Priority: Primary Status: Resolved Qualifiers: Sepsis type: sepsis due to unspecified organism Qualified Code(s): A41.9 - Sepsis, unspecified organism (2) HCAP (healthcare-associated pneumonia) Priority: Primary Status: Acute (3) Elevated troponin Priority: Secondary Status: Acute (4) Iron deficiency anemia Priority: Primary Status: Chronic Qualifiers: Iron deficiency anemia type: unspecified iron deficiency Qualified Code(s) : D50.9 - Iron deficiency anemia, unspecified (5) COPD (chronic obstructive pulmonary disease) Priority: Primary Status: Chronic Qualifiers: COPD type: unspecified COPD Qualified Code(s): J44.9 - Chronic obstructive pulmonary disease, unspecified (6) A-fib Priority: Primary Status: Chronic Qualifiers: Atrial fibrillation type: unspecified Qualified Code(s): I48.91 - Unspecified atrial fibrillation (7) Acute respiratory failure with hypoxia Priority: Primary Status: Resolved (8) Falls Priority: Primary Status: Chronic Qualifiers: Encounter type: initial encounter Qualified Code(s): W19.XXXA - Unspecified fall, initial encounter (9) DVT prophylaxis Priority: Secondary Status: Acute - Discharge Medications Prescriptions: Albuterol Neb [Proventil Neb] 2.5 mg IH Q2H PRN #50 vial.neb PRN Reason: Shortness Of Breath Albuterol Neb [Proventil Neb] 2.5 mg IH Q4H #42 inhsol Azithromycin [Azithromycin 6-Tab Pack] 250 mg PO PER PKG DI #6 tab Cefdinir [Omnicef] 300 mg PO BID #12 capsule Home Medications: Acetaminophen [Tylenol] 650 mg PO Q6H PRN 06/28/17 [History] Alendronate Sodium [Fosamax] 70 mg PO QWEEK 06/28/17 [History] Calcium Carbonate/Vitamin D3 [Calcium 250+D Tablet] 1 each PO BID 06/28/17 [ History] Cetirizine HCl [Zyrtec] 10 mg PO DAILY 06/28/17 [History] Cranberry 800 mg PO DAILY 06/28/17 [History] Furosemide [Lasix] 20 mg PO DAILY 06/28/17 [History] Leflunomide 10 mg PO Q48H 06/28/17 [History] Memantine HCl 10 mg PO BID 06/28/17 [History] Metoprolol XL (24 HR) Succ [Toprol Xl] 12.5 mg PO DAILY 06/28/17 [History] Potassium Chloride [Klor-Con 10] 10 meq PO DAILY 06/28/17 [History] Tiotropium [Spiriva] 18 mcg IH 0700 06/28/17 [History] Vit C/E/Zn/Coppr/Lutein/Zeaxan [Preservision Areds 2 Softgel] 1 cap PO BID 06/28 [History] Xyzal 5 mg PO DAILY 06/28/17 [History] Albuterol Neb [Proventil Neb] 2.5 mg IH Q2H PRN #50 vial.neb 07/02/17 [Rx] Albuterol Neb [Proventil Neb] 2.5 mg IH Q4H #42 inhsol 07/02/17 [Rx] Azithromycin [Azithromycin 6-Tab Pack] 250 mg PO PER PKG DI #6 tab 07/02/17 [Rx] Cefdinir [Omnicef] 300 mg PO BID #12 capsule 07/02/17 [Rx] Allergies/Adverse Reactions: 3 Allergy/AdvReac Type Severity Reaction Status Date / Time levofloxacin [From Levaquin] Allergy See Verified 06/28/17 16:59 Comments lisinopril Allergy Swelling Verified 06/28/17 17:00 of Lip/Tongue/Throat methotrexate Allergy See Verified 06/28/17 17:00 Comments naproxen [From Aleve] Allergy Swelling Verified 06/28/17 17:00 of Lip/Tongue/Throat Donepezil [From Aricept] AdvReac See Verified 06/28/17 17:27 Comments Procedures/tests Complete & Pending: Procedures Performed prior 72 hours Category Date Time Status EKG [ECG 12 lead ECG] [ECG] Stat Y 06/30/17 21:18 Completed Date of admission: 06/28/17 20:46 [facility] care physician[facility] Consults: 06/28/17 21:16 Consult to Occupational Therapy [CONS] Routine Comment: Evaluate, develop and implement POC Reason for Consult: New generalized weakness. Reporting that he fell the last two mornings. Consult to Physical Therapy [CONS] Routine Comment: Evaluate, develop and implement POC Reason for Consult: New generalized weakness. Reporting that he fell the last two mornings. 06/29/17 02:47 Consult to Wire Spinner [CONS] Routine Reason for SW Consult: DISCHARGE NEEDS Discharging clinician: Marshal George - Patient Status Disposition: Home Health Service Condition: Fair Overall status at discharge: patient is progressing back to baseline - Ambulatory Orders Ambulatory Orders: Misc. Orders Time Frame: 1 Day, Facility: [facility], Location: Home Health Services Misc. Orders Time Frame: 99 Months, Facility: [facility], Location: Home Health Services - Discharge Instructions Follow Up With: [facility],PCP [Primary Care Provider] - 07/05/17 2:30 pm (Please follow up as schedule...) Additional Instructions: Return to hospital if worsening shortness of breath, abdominal chest pain, development of fever, or development of productive cough Take all medications as prescribed: Azithromycin 500 mg 1 day, followed by 250 mg for 4 days Omnicef 300 mg twice a day for 6 days Albuterol nebulizer every 4-6 hours for 7 days Additional orbital nebulizer every 2 hours if needed for additional shortness of breath Continue previous Spiriva Please follow-up with her PCP in 1-2 weeks - Diet and Activity Activity: increase activity as tolerated, resume usual activities as tolerated, wear oxygen at all times Diet: advance to your usual diet Interval History: 11-year-old male with history of hypertension, RA, COPD, A. fib, Alzheimer's, chronic anemia was admitted on 06/28/17 with multifocal pneumonia, sepsis, elevated troponin, initial fibrillation. Patient TTE evaluated by cardiology who feels was previously described as mass/ vegetation was actually calcifications and the need for a YOLANDE could be reevaluated. Patient had no new complaints today and appears a/stable for discharge. Hospital course: Mr. Shepherd is a 89 year old male who has prior medical history of atrial fibrillation, iron deficiency anemia, Alzheimer's disease, and COPD presented to [facility] from the [facility] on 06/28/17 with dyspnea for 2 days. He is found to have sepsis due to multifocal pneumonia. Due to his chronic use of leflunomide for rheumatoid arthritis, patient was started on broad-spectrum antibiotics, cefepime and vancomycin, EKG was obtained due to concern of other troponins, and blood/respiratory cultures were taken. Paces troponins remained adynamic and he showed improvement in his breathing and vital signs with IV antibiotics and breathing treatments. His initial TTE was read as showing possible vegetation, the patient had no signs of endocarditis. This TTE was later evaluated by the dip painter information security specialist who felt these findings were due to calcifications in the aortic and mitral valves. His IV antibiotics for D escalated the patient continued to improve. At this point his stay/stable for return home with home health services, nebulizer, antibiotics, and continued breathing treatments. - Time Spent with Patient Total time spent providing and/or coordinating discharge services: - Constitutional Vitals: Temp Pulse Resp BP Pulse Ox 98.5 F 88 20 135/74 99 07/02/17 11:22 07/02/17 11:22 07/02/17 11:22 07/02/17 11:22 07/02/17 11:22 General appearance: Present: cooperative, A&O X 1, answers questions appropriately Exam: General: Cooperative, pleasant, no acute distress, alert and oriented 1 HEENT: Normocephalic, atraumatic, Conjunctiva pink, sclera anicteric Respiratory: No accessory muscle usage, no adventitious breath sounds on auscultation Cardiovascular: Irregular, S1 and S2 present, no murmurs/rubs/gallops/clicks appreciated GI/abdominal: Nondistended, nontender, soft, normal bowel sounds, no peritoneal signs Extremities: No calf tenderness, noncyanotic, no pedal edema appreciated, warm, lower extremity pulses palpable and symmetrical, no raw spots are also notes on examination Neurological: no facial droop, no focal deficits
--- NOTE | 2017-07-02 16:34 | Electrocardiograph Report ---
[place] [id number] Test Date: 2017-06-30 Pat Name: Jairo Shepherd Department: 112 Room: 2A24 Gender: M Pearl Cutter: : 1925 Requested By: Armando Bryan Order Number: [id number] Reading MD: Troy Hoffman Measurements Intervals [place] Rate: 136 P: [place]: 0 QRS: -80 QRSD: 136 T: 66 QT: 329 QTc: 409 Interpretive Statements ATRIAL FIBRILLATION WITH RAPID VENTRICULAR RESPONSE RIGHT BUNDLE BRANCH BLOCK LEFT ANTERIOR FASCICULAR BLOCK Electronically Signed On 07-02-2017 16:32:26 EST by Troy Hoffman
[2017-07-02] MEDS: 0.9 % Sodium Chloride 1,000 ML IVC SCH (17:40)
[2017-07-02] MEDS: *HR* LORazepam 1 MG TABLET PO PRN (20:20)
[2017-07-02] MEDS: LEFLUNOMIDE 10 MG PO SCH (20:21)
[2017-07-03] MEDS: Ipratropium/Albuterol Neb 3 ML IH SCH ×4 (03:45→15:30)
[2017-07-03] MEDS: *HR* Heparin 5,000 UNIT/ML VIAL SQ SCH (06:05)
[2017-07-03] MEDS ORDERED: Furosemide 20 MG/2 ML VIAL IVP ONE (07:51)
[2017-07-03] MEDS: Loratadine 10 MG TABLET PO SCH (10:02)
[2017-07-03] MEDS: Multivit/Ca/Min/Fe/FA 1 TAB TABLET PO SCH (10:02)
[2017-07-03] MEDS: cefTRIAXone 1,000 MG in Water for inj. (sterile) 20 ML 10 ML IVP SCH (10:03)
[2017-07-03] MEDS: Metoprolol XL (24 HR) Succ 25 MG TAB.ER.24H PO SCH ×2 (10:03→14:09)
[2017-07-03 10:48] VITALS: BP 148/79
[2017-07-03] MEDS: Azithromycin 500 MG in D5% in Water 250 ML IVPB SCH (12:06)
[2017-07-04] MEDS ORDERED: Azithromycin 250 MG TABLET PO SCH (12:00)
== END 2017-07-03 17:45 | disposition home health service (06) | DRG 871 ==
LOC: 2ANU 15:57 → EMEROO 15:57 → 2ANU 19:26 → SUATTDRO 20:46
PROVIDERS: ADMIT Internal Medicine Nephrology; ATTEND Internal Medicine

== ENCOUNTER 2017-07-31 20:02 | Inpatient (IN) ==
--- NOTE | 2017-07-31 20:28 | Emergency Department Note ---
Disposition Clinical Impression: Healthcare-associated pneumonia, Transaminitis, Elevated bilirubin, Pancreatic mass Disposition: Admitted As Inpatient Condition: Fair General Adult HPI - General Chief complaint: ED Shortness of Breath/Dyspnea Stated complaint: pneumonia Time Seen by Provider: 07/31/17 20:05 Source: EMS Mode of arrival: EMS Limitations: altered mental status Nursing Notes Reviewed: Yes Vital Signs Reviewed: Yes - History of Present Illness HPI Narrative: 89-year-old male history of atrial fibrillation, COPD, legally blind, hypertension, rheumatoid arthritis who presents to the ER from the [facility] due to pneumonia and abnormal CT scan. Patient has a history of dementia and is a poor historian. He was seen at the [facility] today as a follow-up for pneumonia. He was recently admitted and underwent a course of antibiotics. He states he does continue to have a cough. He was seen there where he was noted to have a worsening pneumonia by chest x-ray. He also was reported to have a transaminitis and CT scan of the abdomen and pelvis with concern for pancreatic mass. Patient sent here for further evaluation. Pt Subjective Complaint: Pneumonia, abnormal CT scan Onset (ago): week(s) Radiation: non-radiation Pain Scale: 3 Improves with: nothing Worsens with: nothing Associated symptoms: Reports: cough. Denies: chest pain Treatments Prior to Arrival: none - Related Data Home Medications Medication Instructions Recorded Confirmed Acetaminophen [Tylenol] 650 mg PO Q6H PRN 06/28/17 07/31/17 Alendronate Sodium [Fosamax] 70 mg PO QWEEK 06/28/17 07/31/17 Calcium Carbonate/Vitamin D3 1 each PO BID 06/28/17 07/31/17 [Calcium 250+D Tablet] Cetirizine HCl [Zyrtec] 10 mg PO DAILY 06/28/17 07/31/17 Cranberry 800 mg PO DAILY 06/28/17 07/31/17 Furosemide [Lasix] 20 mg PO DAILY 06/28/17 07/31/17 Leflunomide 10 mg PO Q48H 06/28/17 07/31/17 Memantine HCl 10 mg PO BID 06/28/17 07/31/17 Metoprolol XL (24 HR) Succ [Toprol 12.5 mg PO DAILY 06/28/17 07/31/17 Xl] Potassium Chloride [Klor-Con 10] 10 meq PO DAILY 06/28/17 07/31/17 Tiotropium [Spiriva] 18 mcg IH 0700 06/28/17 07/31/17 Vit C/E/Zn/Coppr/Lutein/Zeaxan 1 cap PO BID 06/28/17 07/31/17 [Preservision Areds 2 Softgel] Xyzal 5 mg PO DAILY 06/28/17 07/31/17 L. Acidophilus/Pectin, [place] 1 each PO BID 07/31/17 07/31/17 [Acidophilus Probiotic Capsule] Previous Rx's Medication Instructions Recorded Albuterol Neb [Proventil Neb] 2.5 mg IH Q4H #42 inhsol 07/02/17 Allergies Allergy/AdvReac Type Severity Reaction Status Date / Time levofloxacin [From Levaquin] Allergy See Verified 06/28/17 16:59 Comments lisinopril Allergy Swelling Verified 06/28/17 17:00 of Lip/Tongue/Throat methotrexate Allergy See Verified 06/28/17 17:00 Comments naproxen [From Aleve] Allergy Swelling Verified 06/28/17 17:00 of Lip/Tongue/Throat Donepezil [From Aricept] AdvReac See Verified 06/28/17 17:27 Comments Limitations: ROS unobtainable due to patients medical condition Past Medical History - Past Medical History Attestation: Yes The following information was validated with the patient. Source: old records reviewed Medical history: Reports: arthritis, atrial fibrillation, cancer, COPD, hypertension, osteoporosis, other Surgical history: Reports: appendectomy Psychiatric history: Reports: no psych history - Social History Smoking Status: Never smoker Smokeless Tobacco Status: No Alcohol use: Reports: none Drug use: Reports: none Physical Exam - General Limitations: no limitations General appearance: alert, in no apparent distress - Head Head exam: atraumatic, normocephalic - Eye Eye exam: Present: scleral icterus - ENT ENT exam: normal exam - Neck Neck exam: Present: normal inspection - Chest Chest inspection: Present: normal inspection, symmetric chest wall rise - Respiratory Respiratory exam: Present: wheezes, prolonged expiratory phase. Absent: respiratory distress - Cardiovascular Cardiovascular exam: Present: normal rhythm, tachycardia, normal heart sounds - Abdominal Exam Abdominal exam: Present: soft, Non-Tender. Absent: tenderness, distention, rigidity - Extremities Exam Extremities exam: Present: normal inspection, full ROM - Expanded Upper Extremity Exam Shoulder exam: Present: normal inspection, full ROM Arm exam: Present: normal inspection, full ROM Elbow exam: Present: normal inspection, full ROM Forearm/Wrist exam: Present: normal inspection, full ROM Hand exam: Present: normal inspection, full ROM - Expanded Lower Extremity Exam Hip/Pelvis exam: Present: normal inspection, full ROM Upper leg exam: Present: normal inspection, full ROM Knee exam: Present: normal inspection, full ROM Lower leg exam: Present: normal inspection, full ROM Ankle exam: Present: normal inspection, full ROM Foot/toe exam: Present: normal inspection, full ROM - Skin Skin exam: Present: other (jaundice) Course Course Narrative: Patient seen and examined. I reviewed his prior workup at the [facility]. He was noted to have persistence of a right upper lobe consolidation as well as developing bibasilar opacifications with concern for progression of pneumonia. He also had a CT scan of the abdomen and pelvis with radiology read of "intra and extrahepatic biliary ductal dilation with abrupt tapering of this common bile duct at the pancreatic head. Persistent ill-defined hypodense mass at the pancreatic head suspicious for adenocarcinoma of the multiloculated cystic mass in the pancreatic head has also enlarged. Increasing pancreatic ductal dilatation as well." - Reevaluation(s) Reevaluation #1: Discussed imaging and labs with patient. Discussed that we would offer transfer to [place] if he sought more aggressive care. He does not want to be transferred at this time and just wants to be admitted here and get a bed. I discussed his current wishes. He states that he would want compressions, shocked and intubated if circumstances decompensated. At this time he is a full code. Vital Signs Temperature 98.0 F 07/31/17 20:05 Pulse Rate 104 07/31/17 20:05 Respiratory Rate 22 07/31/17 20:05 Blood Pressure 153/112 07/31/17 20:05 O2 Sat by Pulse Oximetry 90 07/31/17 20:05 Temperature 97.5 F L 08/01/17 00:37 Pulse Rate 81 08/01/17 00:37 Respiratory Rate 16 08/01/17 00:37 Blood Pressure 162/63 08/01/17 00:37 O2 Sat by Pulse Oximetry 97 08/01/17 00:37 Oxygen Delivery Oxygen Delivery Nasal Cannula Medical Decision Making - MDM Narrative Medical decision making narrative: 89-year-old male presents to the ER from the [facility] due to continued pneumonia and abnormal CT scan of the abdomen. Recently hospitalized for pneumonia. He went there today for follow-up chest x-ray and was noted to be worsening. He is also noted to be jaundiced with a transaminitis and elevated alkaline phosphatase. CT scan showing a mass at the head of the pancreas with common bile duct obstruction. He has a total bilirubin of 5.9 with an elevated lipase. I was unable to discuss with gastroenterology as they do not take all unless it is GI bleed. Discussed with the patient about transfer versus being admitted here. He requests to stay here at this time. Patient admitted to the hospitalist service with healthcare associated pneumonia, pancreatic mass, obstructive biliary pathology. He was given Zosyn prior to arrival, I added vancomycin and Zithromax. - Medical Records Medical records reviewed: Yes I reviewed the patient's medical records. - Lab Data Lab results reviewed: Yes I reviewed the patient's lab results. Result diagrams: 08/01/17 03:24 07/31/17 20:58 Lab Results 07/31/17 07/31/17 07/31/17 Range/Units 20:58 20:58 20:58 WBC 7.2 (4.3-11.1) K/mcL RBC 3.29 L (4.19-5.50) M/mcL Hgb 9.4 L (12.9-16.9) g/dL Hct 30.4 L (37.5-50.1) % MCV 92.4 (83.0-100.0) fL MCH 28.6 (28.0-33.3) pg MCHC 30.9 L (31.6-35.5) g/dL RDW 21.2 H (11.5-14.5) % Plt Count 292 (140-400) K/mcL MPV 11.4 (9.4-12.4) fL Immature Gran % 1.4 (0-4) % Seg Neutrophils % 78.0 % Lymphocytes % 10.1 % Monocytes % 8.8 % Eosinophils % 0.7 % Basophils % 1.0 % Neutrophils # 5.6 (1.6-8.9) K/mcL Lymphocytes # 0.7 (0.6-4.6) K/mcL Monocytes # 0.6 (0.0-1.3) K/mcL Eosinophils # 0.1 (0.0-0.6) K/mcL Basophils # 0.1 (0.0-0.2) K/mcL Sodium 138 (136-145) mEq/L Potassium 3.9 (3.5-5.1) mEq/L Chloride 108 H (98-107) mEq/L Carbon Dioxide 22 L (23-29) mEq/L BUN 29 H (8-23) mg/dL Creatinine 0.98 (0.70-1.30) mg/dL Est GFR ( Amer) > 60 (> 60) Est GFR (Non-Af Amer) > 60 (> 60) BUN/Creatinine Ratio 30 H (6-26) Glucose 89 (70-105) mg/dL Calculated Osmolality 291 (280-300) Lactic Acid 1.0 (0.5-2.2) mmol/L Calcium 8.6 (8.6-10.3) mg/dL Total Bilirubin 5.9 H (0.3-1.0) mg/dL AST 204 H (13-39) Units/L ALT 157 H (7-52) Units/L Alkaline Phosphatase > 1500 H (34-104) Units/L Ammonia (16-53) mcmol/L Serum Total Protein 6.7 (6.4-8.9) g/dL Albumin 3.0 L (3.5-5.7) g/dL Globulin 3.7 H (2.4-3.5) g/dL Albumin/Globulin Ratio 0.8 L (1.1-2.2) Lipase 273 H (11-82) Units/L Hepatitis A IgM Ab (Nonreactive) Hep Bs Antigen (Nonreactive) Hep B Core IgM Ab (Nonreactive) Hepatitis C Ab Screen (Nonreactive) 07/31/17 07/31/17 Range/Units 20:58 20:58 WBC (4.3-11.1) K/mcL RBC (4.19-5.50) M/mcL Hgb (12.9-16.9) g/dL Hct (37.5-50.1) % MCV (83.0-100.0) fL MCH (28.0-33.3) pg MCHC (31.6-35.5) g/dL RDW (11.5-14.5) % Plt Count (140-400) K/mcL MPV (9.4-12.4) fL Immature Gran % (0-4) % Seg Neutrophils % % Lymphocytes % % Monocytes % % Eosinophils % % Basophils % % Neutrophils # (1.6-8.9) K/mcL Lymphocytes # (0.6-4.6) K/mcL Monocytes # (0.0-1.3) K/mcL Eosinophils # (0.0-0.6) K/mcL Basophils # (0.0-0.2) K/mcL Sodium (136-145) mEq/L Potassium (3.5-5.1) mEq/L Chloride (98-107) mEq/L Carbon Dioxide (23-29) mEq/L BUN (8-23) mg/dL Creatinine (0.70-1.30) mg/dL Est GFR ( Amer) (> 60) Est GFR (Non-Af Amer) (> 60) BUN/Creatinine Ratio (6-26) Glucose (70-105) mg/dL Calculated Osmolality (280-300) Lactic Acid (0.5-2.2) mmol/L Calcium (8.6-10.3) mg/dL Total Bilirubin (0.3-1.0) mg/dL AST (13-39) Units/L ALT (7-52) Units/L Alkaline Phosphatase (34-104) Units/L Ammonia 40 (16-53) mcmol/L Serum Total Protein (6.4-8.9) g/dL Albumin (3.5-5.7) g/dL Globulin (2.4-3.5) g/dL Albumin/Globulin Ratio (1.1-2.2) Lipase (11-82) Units/L Hepatitis A IgM Ab Nonreactive (Nonreactive) Hep Bs Antigen Nonreactive (Nonreactive) Hep B Core IgM Ab Nonreactive (Nonreactive) Hepatitis C Ab Screen Reactive H (Nonreactive) - Radiology Data Radiology results reviewed: Yes I reviewed the patient's radiology results. - EKG Data EKG #1 EKG attestation: Yes I reviewed and interpreted this EKG. EKG results narrative: EKG demonstrates atrial fibrillation that is rate controlled. Left axis deviation. Prolonged QRS duration. Other intervals normal. Normal R-wave progression. No gross ST elevations or depressions. No acute ischemic findings. S.B.A.R. - S.B.A.R. Situation: Demographics, MOA Background: Presenting Complaint, Relevant PMH, Meds, & Allergies Assessment: Course and respsone to treatment, Exam Concerns, Patient/Family Expectation, Pertinant Lab Results Recommendation: Barrier(s) to disposition, Recommendation based on pending studies, treatments, or consults S.B.A.R. Report Given to: Dr. Pretty Attestation Statement - Attestation Attestation: I, Ranjith Paulino MD, personally evaluated this patient and discussed their management with the resident physician. I reviewed the resident's note and agree with the documented findings, medical decision making, and plan of care. 89-year-old male transferred from the local [place] for admission for worsening pneumonia and also a pancreatic mass causing biliary obstruction. Patient was in the hospital here about 4 weeks ago for pneumonia. He had a follow-up chest x-ray today at the [place] which revealed worsening of the pneumonia. He was called and advised to return there for evaluation. He was noted to have jaundice. reports that she noticed the jaundice about 10 days ago. Workup at the [place] revealed elevated transaminases and a CT showed a mass in the head of the pancreas. On examination patient is a well-developed very thin elderly male in no acute distress. He is alert. No cyanosis or diaphoresis. Jaundice. Breath sounds are clear and equal bilaterally. Heart irregularly irregular with a normal rate. Abdomen is soft with normal bowel sounds. EKGs here shows atrial fibrillation and unchanged from prior EKG. The hospitalist, Dr. Pretty, was consulted and accepted the admission of the patient.
[2017-07-31] MEDS ORDERED: Vancomycin 1,000 MG in D5% in Water 250 ML IVPB ONE ×2 (20:29→23:00)
[2017-07-31] MEDS ORDERED: Azithromycin 500 MG in D5% in Water 250 ML IVPB ONE (20:29)
[2017-07-31 21:10] LABS: Basophils # 0.1 K/mcL (0.0-0.2); Eosinophils # 0.1 K/mcL (0.0-0.6); Eosinophils % 0.7 %; Hematocrit 30.4 % (37.5-50.1); Hemoglobin 9.4 g/dL (12.9-16.9); Immature Granulocytes % 1.4 % (0-4); Lymphocytes # 0.7 K/mcL (0.6-4.6); Lymphocytes % 10.1 %; Mean Corpuscular HGB Conc 30.9 g/dL (31.6-35.5); Mean Corpuscular Hemoglobin 28.6 pg (28.0-33.3); Mean Corpuscular Volume 92.4 fL (83.0-100.0); Mean Platelet Volume 11.4 fL (9.4-12.4); Monocytes # 0.6 K/mcL (0.0-1.3); Monocytes % 8.8 %; Neutrophils # 5.6 K/mcL (1.6-8.9); Platelet Count 292 K/mcL (140-400); Red Blood Count 3.29 M/mcL (4.19-5.50); Red Cell Distribution Width 21.2 % (11.5-14.5)
[2017-07-31 21:31] LABS: Alanine Aminotransferase 157 Units/L (7-52); Albumin/Globulin Ratio 0.8 (1.1-2.2); Alkaline Phosphatase > 1500 Units/L (34-104); Aspartate Amino Transferase 204 Units/L (13-39); BUN/Creatinine Ratio 30 (6-26); Bilirubin,Total 5.9 mg/dL (0.3-1.0); Blood Urea Nitrogen 29 mg/dL (8-23); Calcium 8.6 mg/dL (8.6-10.3); Carbon Dioxide 22 mEq/L (23-29); Chloride 108 mEq/L (98-107); Globulin 3.7 g/dL (2.4-3.5); Glucose 89 mg/dL (70-105); Lipase 273 Units/L (11-82); Osmolality,Calculated 291 (280-300); Potassium 3.9 mEq/L (3.5-5.1); Sodium 138 mEq/L (136-145); Total Protein 6.7 g/dL (6.4-8.9); eGFR For African Americans > 60 (> 60); eGFR For Non-African Americans > 60 (> 60)
[2017-08-01] MEDS ORDERED: Acetaminophen 325 MG TABLET PO PRN (00:56)
[2017-08-01] MEDS ORDERED: Naloxone 0.4 MG/ML INJ IVP PRN (00:56)
[2017-08-01] MEDS ORDERED: traMADol 50 MG TABLET PO PRN (00:56)
[2017-08-01] MEDS ORDERED: cefTRIAXone 1,000 MG in Water for inj. (sterile) 10 ML IVP SCH ×2 (01:00→08:00)
[2017-08-01] MEDS ORDERED: Vancomycin 750 MG in D5% in Water 250 ML IVPB SCH (01:00)
--- NOTE | 2017-08-01 01:27 | Internal Med History&Physical ---
Date of Encounter: 08/01/17 Time of Encounter: 00:30 Assessment and Plan (1) HCAP (healthcare-associated pneumonia) Current visit: Yes Status: Acute 1. Patient had blood cultures drawn in ER. 2. Will continue IV Vancomycin, Rocephin, and Zithromax. 3. Oxygen and supportive measures as needed. 4. Will order 2 view CXR to confirm suspicion of pneumonia. (2) Pancreatic mass Current visit: Yes Status: Acute 1. I am unable to find his [facility] records and/or CT reports. 2. Will order MRI abdomen to further evaluate. 3. Will follow LFTS and Bilirubin levels. 4. Will consult GI as he will likely need biopsy/confirmation of suspected pancreatic cancer. (3) Dementia Current visit: Yes Status: Chronic 1. I am unsure if this is his baseline. 2. Continue home meds as appropriate. 3. Will await family members to discuss his baseline cognitive state. Qualifiers: Dementia type: unspecified type Dementia behavioral disturbance: without behavioral disturbance Qualified Code(s): F03.90 - Unspecified dementia without behavioral disturbance (4) DVT prophylaxis Current visit: No Status: Acute 1. Heparin SQ. Internal Medicine - H&P: HPI Chief complaint: pneumonia; abnormal CT Admitted From: Emergency Dept Plans for Post Hospital Care: Home History of present illness: Mr. Shepherd is an 89 year old male who was sent to our ER from [facility]. He was following with his PCP today for recent hospitalization for pneumonia. He had worsening pneumonia on chest x-ray and abnormal LFTs. This prompted CT scan of his abdomen, which revealed pancreatic mass. As such, he was transferred to our ER. Work-up in the ER included routine labs and initiation of antibiotics. He was subsequently admitted to the hospitalist service. Upon my assessment of the patient, he is a very poor historian, hard of hearing , and suffers from dementia. He is unable to provide much history other than the fact he was hospitalized recently for pneumonia. Upon further questioning, he admits to some weight loss, coughing, and shortness of breath. No further history could be obtained from patient. I was unable to find any of his [facility] records and/or documents of lab testing and imaging testing done at the [facility]. Most of my information was obtained from ER records and limited old records. There are no family members present at the bedside to confirm any further history. Past Med Surg Social Fam HX - Past Medical History Source: old records reviewed, other (ER records and discussions) Medical history: arthritis, atrial fibrillation, cancer, COPD, hypertension, osteoporosis Psychiatric history: no psych history - Past Surgical History Surgical History: appendectomy - Social History Smoking Status: Never smoker Smokeless Tobacco Status: No Alcohol use: none Drug use: none Current living situation: Home, With Family Activity Level: Independent ambulation, Uses cane/walker - Family History Mother History Unknown: Yes Living Status: Father History Unknown: Yes Living Status: Internal Medicine - H&P: Meds Acetaminophen [Tylenol] 650 mg PO Q6H PRN 06/28/17 [History] Alendronate Sodium [Fosamax] 70 mg PO QWEEK 06/28/17 [History] Calcium Carbonate/Vitamin D3 [Calcium 250+D Tablet] 1 each PO BID 06/28/17 [ History] Cetirizine HCl [Zyrtec] 10 mg PO DAILY 06/28/17 [History] Cranberry 800 mg PO DAILY 06/28/17 [History] Furosemide [Lasix] 20 mg PO DAILY 06/28/17 [History] Leflunomide 10 mg PO Q48H 06/28/17 [History] Memantine HCl 10 mg PO BID 06/28/17 [History] Metoprolol XL (24 HR) Succ [Toprol Xl] 12.5 mg PO DAILY 06/28/17 [History] Potassium Chloride [Klor-Con 10] 10 meq PO DAILY 06/28/17 [History] Tiotropium [Spiriva] 18 mcg IH 0700 06/28/17 [History] Vit C/E/Zn/Coppr/Lutein/Zeaxan [Preservision Areds 2 Softgel] 1 cap PO BID 06/28 [History] Xyzal 5 mg PO DAILY 06/28/17 [History] Albuterol Neb [Proventil Neb] 2.5 mg IH Q4H #42 inhsol 07/02/17 [Rx] L. Acidophilus/Pectin, [place] [Acidophilus Probiotic Capsule] 1 each PO BID [History] 3 Allergy/AdvReac Type Severity Reaction Status Date / Time levofloxacin [From Levaquin] Allergy See Verified 06/28/17 16:59 Comments lisinopril Allergy Swelling Verified 06/28/17 17:00 of Lip/Tongue/Throat methotrexate Allergy See Verified 06/28/17 17:00 Comments naproxen [From Aleve] Allergy Swelling Verified 06/28/17 17:00 of Lip/Tongue/Throat Donepezil [From Aricept] AdvReac See Verified 06/28/17 17:27 Comments ROS unobtainable: due to mental status Review of systems: as noted in [place]; no further ROS obtainable due to confusion/baseline dementia - Constitutional Vitals: Temp Pulse Resp BP Pulse Ox 97.5 F L 81 16 162/63 97 08/01/17 00:37 08/01/17 00:37 08/01/17 00:37 08/01/17 00:37 08/01/17 00:37 General appearance: Present: cachectic, cooperative, A&O X 1, pleasant ( pleasantly confused and hard of hearing), no acute distress, underweight - Head Head exam: Present: atraumatic, normal inspection - Eye Eye exam: Present: EOMI, PERRL, scleral icterus. Absent: normal appearance Pupils: Present: normal accommodation - ENT ENT exam: Present: mucous membranes dry, normal exam - Neck Neck exam general surgery: Present: full ROM, supple. Absent: lymphadenopathy, tenderness, nuchal rigidity - Respiratory Respiratory exam: Present: CTAB, rales (mostly right base), rhonchi. Absent: chest wall tenderness, respiratory distress, wheezes - Cardiovascular Cardiovascular exam: Present: distant heart sounds, irregular rhythm, +S1, +S2. Absent: diastolic murmur, systolic murmur - GI/Abdominal GI/Abdominal exam: Present: normal bowel sounds, soft. Absent: hepatomegaly, mass, splenomegaly, tenderness - Extremities Exam Extremities exam: Present: full ROM, normal capillary refill, warm, radial pulses palpable and symmetrical. Absent: calf tenderness, cyanotic, pedal edema , tenderness - Back Exam Back exam: Absent: CVA tenderness (L), CVA tenderness (R) - Neurological Exam Neurological exam: Present: altered, no focal deficits - Psychiatric Psychiatric exam: Present: normal affect, normal mood - Skin Skin exam: Present: dry, warm Additional comments: mild jaundice Internal Med - H&P Results - Labs CBC & Chem 7: 07/31/17 20:58 07/31/17 20:58
[2017-08-01 01:36] LABS: Hepatitis A Antibody IgM Nonreactive (Nonreactive); Hepatitis B Core IgM Nonreactive (Nonreactive); Hepatitis B Surface Antigen Nonreactive (Nonreactive)
[2017-08-01 02:00] LABS: Hepatitis C Virus Antibody Reactive (Nonreactive)
[2017-08-01] MEDS ORDERED: Haloperidol Lactate 5 MG/ML VIAL IM ONE (02:14)
[2017-08-01] MEDS: Albuterol 2.5 MG/3 ML NEBULIZER IH SCH ×5 (03:35→15:41)
[2017-08-01 03:38] LABS: Basophils # 0.1 K/mcL (0.0-0.2); Basophils % 1.1 %; Eosinophils # 0.1 K/mcL (0.0-0.6); Eosinophils % 0.7 %; Hematocrit 28.3 % (37.5-50.1); Hemoglobin 8.9 g/dL (12.9-16.9); Immature Granulocytes % 1.2 % (0-4); Lymphocytes # 0.6 K/mcL (0.6-4.6); Lymphocytes % 7.7 %; Mean Corpuscular HGB Conc 31.4 g/dL (31.6-35.5); Mean Corpuscular Hemoglobin 28.6 pg (28.0-33.3); Mean Platelet Volume 11.1 fL (9.4-12.4); Monocytes # 0.8 K/mcL (0.0-1.3); Monocytes % 10.3 %; Neutrophils # 6.4 K/mcL (1.6-8.9); Platelet Count 276 K/mcL (140-400); Red Blood Count 3.11 M/mcL (4.19-5.50); Red Cell Distribution Width 21.2 % (11.5-14.5)
[2017-08-01 03:53] LABS: INR 1.5; Prothrombin Time 15.9 Seconds (9.4-12.1)
[2017-08-01 03:55] LABS: Activated Partial Thrombo Time 32.5 Seconds (26.0-36.0)
[2017-08-01 04:32] LABS: Alanine Aminotransferase 156 Units/L (7-52); Albumin 2.9 g/dL (3.5-5.7); Albumin/Globulin Ratio 0.8 (1.1-2.2); Alkaline Phosphatase > 1500 Units/L (34-104); Amylase 16 Units/L (29-103); Aspartate Amino Transferase 213 Units/L (13-39); BUN/Creatinine Ratio 28 (6-26); Bilirubin,Indirect 2.4 mg/dL (0.0-1.2); Bilirubin,Total 6.4 mg/dL (0.3-1.0); Blood Urea Nitrogen 28 mg/dL (8-23); Calcium 8.5 mg/dL (8.6-10.3); Carbon Dioxide 23 mEq/L (23-29); Chloride 108 mEq/L (98-107); Chol/HDL Ratio 12.3 (0-4.9); Cholesterol 209 mg/dL (< 200); Globulin 3.8 g/dL (2.4-3.5); Glucose 93 mg/dL (70-105); HDL Cholesterol 17 mg/dL (40-59); LDL Cholesterol,Calculated 174 mg/dL (0-99); Lipase 204 Units/L (11-82); Osmolality,Calculated 291 (280-300); Sodium 138 mEq/L (136-145); Total Protein 6.7 g/dL (6.4-8.9); Triglycerides 90 mg/dL (< 150); eGFR For African Americans > 60 (> 60); eGFR For Non-African Americans > 60 (> 60)
[2017-08-01] MEDS: *HR* Heparin 5,000 UNIT/ML VIAL SQ SCH ×2 (05:10→16:21)
[2017-08-01] MEDS ORDERED: Tiotropium 18 MCG inhalation IH SCH (07:00)
[2017-08-01] MEDS: Lactobacillus 1 EACH CAP.SPRINK PO SCH ×2 (07:50→20:03)
[2017-08-01] MEDS: Metoprolol XL (24 HR) Succ 25 MG TAB.ER.24H PO SCH (07:50)
[2017-08-01] MEDS ORDERED: Azithromycin 500 MG in D5% in Water 250 ML IVPB SCH (08:00)
[2017-08-01] MEDS ORDERED: Loratadine 10 MG TABLET PO SCH (09:00)
--- NOTE | 2017-08-01 11:22 | Gastroenterology Consult Note ---
<Nanda Bender - Last Filed: 08/01/17 11:19> Date of Encounter: 08/01/17 Time of Encounter: 10:30 - Assessment and plan (1) Pancreatic mass Current Visit: Yes Status: Acute Assessment and plan: Pt has pancreatic mass seen on MRI 04/16 from [facility]. LFTs are now abnormal and pt is jaundice. Will review reports from [facility]. He will need EUS/ERCP with stent if family is in agreement. Attempted to call pts Kellie, no answer. Nursing staff will call when she gets to hospital. Will check CA 19-9. He is a poor candidate for endoscopy due to dementia and frailty. (2) HCV (hepatitis C virus) Current Visit: Yes Status: Acute Assessment and plan: Hep C antibody is reactive, will order Genotype and quant. Qualifiers: Viral hepatitis chronicity: unspecified Hepatic coma status: without hepatic coma Qualified Code(s): B19.20 - Unspecified viral hepatitis C without hepatic coma (3) HCAP (healthcare-associated pneumonia) Current Visit: Yes Status: Acute Assessment and plan: managed per hospitalist (4) Dementia Current Visit: Yes Status: Chronic Qualifiers: Dementia type: unspecified type Dementia behavioral disturbance: without behavioral disturbance Qualified Code(s): F03.90 - Unspecified dementia without behavioral disturbance - Time Spent With Patient Total time spent is greater than 50% in coordination of care (as documented) at patient's floor/unit and/or counseling patient: GI History of Present Illness - Data of Consult Patient: known to practice within the last 3 years Consult date: 08/01/17 Requesting Physician: Yessenia Spence MD - Consult Narrative Reason for consult: pancreatic mass History of present illness: Mr. Shepherd is an 89 year old male with a history of COPD, Afib, RA, HTN, arthritis, skin cancer, melanoma, and cataracts.. He was sent to our ER from [facility]. He was following with his PCP today for recent hospitalization for pneumonia and was found to have worsening pneumonia on chest x-ray and abnormal LFTs. This prompted CT scan of his abdomen, which revealed pancreatic mass and he was sent to ER and admitted to the hospitalist service. He was seen in the office in 04/16 MRI then showed 3.1 cm cystic lesion, pancreatic duct 4 mm. Was discussed at [facility] with the patient and his and he was felt to be a poor candidate for endoscopy due to pts age and frailty at that time.In 04/16 labs were normal, he was gaining weight and the patient did not have any jaundice. Labs in ER show a AST 213, ALT 156, T bili 6.4, Alk phos >1500. Hepatitis C was reactive. Review of his weight from ofice visit shows a weight loss of 11 pounds since 04/16. The patient has dementia and is a poor historian. He denies any abdominal pain,nausea, vomiting, diarrhea, constipation or bloody stools. Colonoscopy: ? EGD:? NSAIDS/ASA: none Anticoagulants: none Past Med Surg Social Fam HX - Past Medical History Medical history: arthritis, atrial fibrillation, cancer, COPD, hypertension, osteoporosis, other Psychiatric history: no psych history - Past Surgical History Surgical History: appendectomy - Social History Smoking Status: Never smoker Smokeless Tobacco Status: No Alcohol use: none Drug use: none - Family History Mother History Unknown: Yes Living Status: Father History Unknown: Yes Living Status: Review of Systems: difficult to obtain with accuracy due to dementia GI: as per [facility]: denies fever, or chills EYES: denies yellow discoloration ENT: denies pain with swallowing or difficulty swallowing CARDIO: denies chest pain, palpitations RESP: Shortness of breath with exertion : denies change in color of urine NEURO: weakness HEME: Denies any bruising MS: denies joint pain, joint swelling or back pain. DERM: denies rash or itching PSYCH: Denies history of anxiety or depression - Constitutional Vitals: Temp Pulse Resp BP Pulse Ox 97.3 F L 91 18 150/94 97 08/01/17 06:56 08/01/17 06:56 08/01/17 06:56 08/01/17 06:56 08/01/17 06:56 Exam: CONSTITUTIONAL:~alert, no acute distress.~HEAD:~normocephalic.~EYES:~no jaundice.~NECK:~no obvious swelling.~HEART:~regular rate and rhythm, no murmurs. ~LUNGS:~bilateral fair air entry, expiratory wheezes noted.~ABDOMEN:~non distended, soft, non tender, no masses palpable, .~RECTAL EXAM:~Deferred.~ EXTREMITIES:~cachectic, no clubbing, or cyanosis, trace BLE edema.~SKIN:~ jaundice noted~NEUROLOGIC:~no obvious focal defect.~~~~ Results - Labs CBC & Chem 7: 08/01/17 03:24 08/01/17 03:24 Labs: Last Result Calcium 8.5 mg/dL (8.6-10.3) L 08/01/17 03:24 Triglycerides 90 mg/dL (< 150) 08/01/17 03:24 Entire Visit Hgb 8.9 g/dL (12.9-16.9) L 08/01/17 03:24 Hct 28.3 % (37.5-50.1) L 08/01/17 03:24 PT 15.9 Seconds (9.4-12.1) H 08/01/17 03:24 Total Bilirubin 6.4 mg/dL (0.3-1.0) H 08/01/17 03:24 AST 213 Units/L (13-39) H 08/01/17 03:24 ALT 156 Units/L (7-52) H 08/01/17 03:24 Ammonia 40 mcmol/L (16-53) 07/31/17 20:58 Amylase 16 Units/L (29-103) L 08/01/17 03:24 Lipase 204 Units/L (11-82) H 08/01/17 03:24 - ABG ABG results: PT/INR, D-dimer PT 15.9 Seconds (9.4-12.1) H 08/01/17 03:24 - Impressions Impressions Chest X-Ray 08/01/17 08:00 IMPRESSION: Interval worsening of airspace opacity within the right upper lobe with persistent multifocal opacities bilaterally. Consider further evaluation with CT. D/ / 08/01/2017 10:10:09 Milena Rehman MD / [email or web address] Interpreting Provider: Milena Rehman MD Consult Discharge Plan - Plan Referrals: [facility] [Primary Care Provider] - <ShayyAddie - Last Filed: 08/01/17 17:51> Date of Encounter: 08/01/17 Time of Encounter: 15:00 - Time Spent With Patient Total time spent is greater than 50% in coordination of care (as documented) at patient's floor/unit and/or counseling patient: GI History of Present Illness - Data of Consult Requesting Physician: Yessenia Spence MD - Consult Narrative History of present illness: Mr. Shepherd is a 89 year old male - Constitutional Vitals: Temp Pulse Resp BP Pulse Ox 97.6 F 89 17 130/71 97 08/01/17 16:58 08/01/17 16:58 08/01/17 16:58 08/01/17 16:58 08/01/17 16:58 Results - Labs CBC & Chem 7: 08/01/17 03:24 08/01/17 03:24 Labs: Last Result Calcium 8.5 mg/dL (8.6-10.3) L 08/01/17 03:24 Triglycerides 90 mg/dL (< 150) 08/01/17 03:24 Entire Visit Hgb 8.9 g/dL (12.9-16.9) L 08/01/17 03:24 Hct 28.3 % (37.5-50.1) L 08/01/17 03:24 PT 15.9 Seconds (9.4-12.1) H 08/01/17 03:24 Total Bilirubin 6.4 mg/dL (0.3-1.0) H 08/01/17 03:24 AST 213 Units/L (13-39) H 08/01/17 03:24 ALT 156 Units/L (7-52) H 08/01/17 03:24 Ammonia 40 mcmol/L (16-53) 07/31/17 20:58 Amylase 16 Units/L (29-103) L 08/01/17 03:24 Lipase 204 Units/L (11-82) H 08/01/17 03:24 - ABG ABG results: PT/INR, D-dimer PT 15.9 Seconds (9.4-12.1) H 08/01/17 03:24 - Impressions Impressions Chest X-Ray 08/01/17 08:00 IMPRESSION: Interval worsening of airspace opacity within the right upper lobe with persistent multifocal opacities bilaterally. Consider further evaluation with CT. D/ / 08/01/2017 10:10:09 Milena Rehman MD / bcarter Interpreting Provider: Milena Rehman MD - Attending Attestation I examined this patient and my medical decision-making was reviewed with the PHARMACOLOGIST. I agree with the documented findings, disposition and treatment plan as described except to the extent set forth below. Pt the possible creatinine had cancer with the obstructive jaundice. Discussed with the and son about the finding and prognosis. wants to have the diagnosis and also further management. We will schedule for a EUS ERCP tomorrow. Because of underlying dementia advanced age doubt the patient will be candidate for surgery and palliative care will need to be involved
[2017-08-01] MEDS: Cefepime HCl 2,000 MG in Water for inj. (sterile) 20 ML IVP SCH ×3 (13:21→18:32)
--- NOTE | 2017-08-01 17:07 | Event Note ---
Date of Encounter: 08/01/17 Time of Encounter: 16:50 89 year old male with dementia, afib, COPD, HTN presented from [facility] to ER because worsening pneumonia and abnormal LFTs. CT abdomen showed a pancreatic mass and so transferred here. Also had complaints of weight loss, coughing, and dyspnea. Chest x-ray with multiple opacities suggestive of multifocal pneumonia based on his clinical picture. 1Multifocal pneumonia 2Pancreatic Mass 3HCV + 4Dementia 5Tachycardia 6 COPD 7 Afib 8 HTN VS: reviewed, currently tachycardic at 111, BP 143/86. on 2L O2 via NC. Exam: Gen: patient calm, cooperative with physical exam, skin jaundiced. AAOx2. CVS: RRR on my exam, lungs: course wheezing throughout with tight breath sounds. No extremity edema. 1. Vancomycin/Cefepime; having difficulty getting IV access because patient is refusing. present at bedside and she would like to speak to him to encourage him to allow IV access. Follow-up yao cultures. I will give PO antibiotics in the mean time. Levaquin listed allergy causes delirium. 2. GI following for Pancreatic mass 3. Follow-up serology for HCV 4. Dementia: Son was present at bedside and informed me that patient can get easily agitated at night time with his dementia. He stated that last hospital stay, he required ativan which did help. We will put prn Ativan and take precaution to avoid delirium as well. Ativan will be PO since we have no IV access. If urgently needed, consider IM route. Will discontinue claritin because of anticholinergic effects. 5. Resume Toprol XL, monitor for signs of sepsis 6 tiotroprium. Xopenex prn. Patient may need corticosteroid because of wheezing to prevent COPD exacerbation. This comes at risk of agitation. Will have low threshold for starting steroid therapy. Re evaluate tomorrow. 7 Toprol. No anticoagulant for home listed. possibly related to patient as a fall risk. 8 metoprolol
[2017-08-01] MEDS ORDERED: *HR* Phytonadione 5 MG TABLET PO ONE (18:47)
[2017-08-01] MEDS: Levalbuterol Neb 1.25 MG/3 ML IH SCH ×2 (19:32→22:37)
[2017-08-01] MEDS: *HR* LORazepam 0.5 MG TABLET PO PRN (20:03)
[2017-08-01] MEDS: Doxycycline 100 MG CAPSULE PO SCH (20:03)
[2017-08-01] MEDS ORDERED: Vancomycin 1,000 MG in D5% in Water 250 ML IVPB SCH (23:00)
[2017-08-02] MEDS: Levalbuterol Neb 1.25 MG/3 ML IH SCH ×4 (03:35→22:53)
[2017-08-02] MEDS: Cefepime HCl 2,000 MG in Water for inj. (sterile) 20 ML IVP SCH ×2 (04:13→15:39)
[2017-08-02] MEDS: *HR* Heparin 5,000 UNIT/ML VIAL SQ SCH ×2 (06:34→15:41)
[2017-08-02 06:45] LABS: Basophils # 0.1 K/mcL (0.0-0.2); Basophils % 1.3 %; Eosinophils # 0.1 K/mcL (0.0-0.6); Eosinophils % 1.2 %; Hematocrit 29.6 % (37.5-50.1); Hemoglobin 9.4 g/dL (12.9-16.9); Lymphocytes # 0.4 K/mcL (0.6-4.6); Lymphocytes % 5.3 %; Mean Corpuscular HGB Conc 31.8 g/dL (31.6-35.5); Mean Corpuscular Hemoglobin 28.6 pg (28.0-33.3); Mean Platelet Volume 11.3 fL (9.4-12.4); Monocytes % 11.9 %; Neutrophils # 6.6 K/mcL (1.6-8.9); Platelet Count 297 K/mcL (140-400); Red Blood Count 3.29 M/mcL (4.19-5.50); Red Cell Distribution Width 21.6 % (11.5-14.5); Segmented Neutrophils % 79.3 %
[2017-08-02 07:10] LABS: BUN/Creatinine Ratio 26 (6-26); Blood Urea Nitrogen 26 mg/dL (8-23); Calcium 8.5 mg/dL (8.6-10.3); Carbon Dioxide 23 mEq/L (23-29); Chloride 110 mEq/L (98-107); Glucose 98 mg/dL (70-105); Osmolality,Calculated 295 (280-300); Potassium 4.3 mEq/L (3.5-5.1); Sodium 140 mEq/L (136-145); eGFR For African Americans > 60 (> 60); eGFR For Non-African Americans > 60 (> 60)
[2017-08-02] MEDS: Doxycycline 100 MG CAPSULE PO SCH ×2 (08:08→19:54)
[2017-08-02] MEDS: Lactobacillus 1 EACH CAP.SPRINK PO SCH ×2 (08:08→19:53)
[2017-08-02] MEDS: Metoprolol XL (24 HR) Succ 25 MG TAB.ER.24H PO SCH (08:08)
[2017-08-02] MEDS: *HR* LORazepam 0.5 MG TABLET PO PRN (08:26)
[2017-08-02] MEDS ORDERED: LEFLUNOMIDE 10 MG PO SCH (09:00)
[2017-08-02] MEDS: Tiotropium 18 MCG inhalation IH SCH (10:33)
--- NOTE | 2017-08-02 12:06 | Anesthesia Evaluation PreOp ---
Date of Encounter: 08/02/17 Time of Encounter: 12:04 - Past History Cardiac History: Arrhythmia (hx a-fib) Pulmonary History: COPD, Other (pneumonia currently) INFORMATION ASSURANCE OFFICER History: Other (dementia) Other Medical History: Other (pancreatic mass Cancer listed in chart, unknown type) Anesthesia History: Past Anesthesia (appy, unknown if problems) Alcohol Use: none Drug use: none Medications and Allergies Acetaminophen [Tylenol] 650 mg PO Q6H PRN 06/28/17 [History] Alendronate Sodium [Fosamax] 70 mg PO QWEEK 06/28/17 [History] Calcium Carbonate/Vitamin D3 [Calcium 250+D Tablet] 1 each PO BID 06/28/17 [ History] Cetirizine HCl [Zyrtec] 10 mg PO DAILY 06/28/17 [History] Cranberry 800 mg PO DAILY 06/28/17 [History] Furosemide [Lasix] 20 mg PO DAILY 06/28/17 [History] Leflunomide 10 mg PO Q48H 06/28/17 [History] Memantine HCl 10 mg PO BID 06/28/17 [History] Metoprolol XL (24 HR) Succ [Toprol Xl] 12.5 mg PO DAILY 06/28/17 [History] Potassium Chloride [Klor-Con 10] 10 meq PO DAILY 06/28/17 [History] Tiotropium [Spiriva] 18 mcg IH 0700 06/28/17 [History] Vit C/E/Zn/Coppr/Lutein/Zeaxan [Preservision Areds 2 Softgel] 1 cap PO BID 06/28 [History] Xyzal 5 mg PO DAILY 06/28/17 [History] Albuterol Neb [Proventil Neb] 2.5 mg IH Q4H #42 inhsol 07/02/17 [Rx] L. Acidophilus/Pectin, [place] [Acidophilus Probiotic Capsule] 1 each PO BID [History] 3 Allergy/AdvReac Type Severity Reaction Status Date / Time levofloxacin [From Levaquin] Allergy See Verified 06/28/17 16:59 Comments lisinopril Allergy Swelling Verified 06/28/17 17:00 of Lip/Tongue/Throat methotrexate Allergy See Verified 06/28/17 17:00 Comments naproxen [From Aleve] Allergy Swelling Verified 06/28/17 17:00 of Lip/Tongue/Throat Donepezil [From Aricept] AdvReac See Verified 06/28/17 17:27 Comments - Meds/Allergy Pre-op Review Medications Reviewed: Yes Allergies Reviewed: Yes Beta Blockers on Current Med List: Yes If Beta Blockers taken, Date/Time (Last Dose taken): today 0808hrs Anesthesia Results - Labs 08/02/17 06:31 08/02/17 06:31 - Imaging Additional studies: echo 06/16: Impressions: LVEF 55%. Lipomatous interatrial septum. Trileaflet aortic valve. Mildly sclerotic aortic valve leaflets. Mild mitral regurgitation. Anterior leaflet thickened, calcified, possible mass on anterior leaflet, cannot rule out vegetation, consider YOLANDE if clinically indicated Anterior leaflet thickened, calcified, possible mass on distal leaflet. Mild tricuspid regurgitation. The aortic root is mildly dilated. The aortic root is heavily calcfied, Anesthesia Exam Selected Entries 08/02/17 06:33 08/02/17 08:20 08/02/17 10:33 Temperature 97.4 F L Pulse Rate 93 Respiratory Rate 18 Blood Pressure 147/81 O2 Sat by Pulse Oximetry 97 Oxygen Flow Rate (LPM) 2 Oxygen Delivery Method Nasal Cannula Weight: 54kg NPO (# of Hours): 8 - HEENT Pupil (Motor): EOMI Mallampati: II Teeth: Edentulous Oral Opening: Greater than 3 - INFORMATION ASSURANCE OFFICER LOC: Confused, Disoriented INFORMATION ASSURANCE OFFICER Motor: Normal RUE, Normal LUE, Normal RLE, Normal LLE, Normal Face INFORMATION ASSURANCE OFFICER Sensory: Normal: RUE, LUE, RLE, LLE, Face - Cardiac Rhythm: Regular Murmur: None - Pulmonary Breath Sounds: bilateral Clear Respiratory Effort: Symmetrical Anesthesia Assess/Plan ASA Score: 4 Modified [place] Scale for Level of Consciousness: Cooperative, oriented, and tranquil (not oriented or cooperative but tranquil) Anesthetic Plan: General Monitoring Plan: Standard Monitors Recovery Plan: PACU (spoke with the patients (POA), she is aware he is high risk, she agrees to GA)
[2017-08-02] MEDS ORDERED: *HR* FentaNYL (PF) 100 MCG/2 ML VIAL ONE (12:36)
[2017-08-02] MEDS ORDERED: *HR* Propofol 200 MG/20 ML VIAL IVP ONE (12:37)
[2017-08-02] MEDS ORDERED: *HR* Succinylcholine 200 MG/10 ML VIAL IVP ONE (12:37)
[2017-08-02] MEDS ORDERED: Lidocaine -MPF 2% 2 ML VIAL ONE (12:37)
--- NOTE | 2017-08-02 12:59 | Electrocardiograph Report ---
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
--- NOTE | 2017-08-02 13:00 | Electrocardiograph Report ---
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
[2017-08-02] MEDS ORDERED: Aminoglycoside Consult 1 EACH MC ONE (13:51)
--- NOTE | 2017-08-02 14:23 | Palliative - Consult Note ---
Date of Encounter: 08/02/17 Time of Encounter: 14:20 - Assessment and Plan (1) Anxiety Current Visit: Yes Status: Acute Assessment and plan: Has low dose Lorazepam TID PRN - Utilized x2 last 24 hours. Monitor (2) Generalized pain Current Visit: Yes Status: Acute Assessment and plan: Currently has Tramadol for pain - utilized x1 last 24 hours. Monitor (3) Counseling regarding advanced care planning and goals of care Current Visit: Yes Status: Acute Assessment and plan: Discussed goals of care - at this time, biopsy just performed this afternoon. Dr. Lucas was in during my visit, and does appear that pancreas mass is cancer. Patient's knows that he is not surgical candidate. She states that they would likely not desire any chemotherapy - that he is too frail to tolerate. I suspect they will at least want to speak with oncology when biopsy back regarding prognosis and recommendations. We discussed that if they decide not to take any treatment that he would be a candidate for hospice care - discussed at length. Discussed code status at length - at this time, she does not desire he have heroic measures - no CPR/Defib/ACLS for cardiac arrest and does not want him placed on a ventilator. Code status transitioned to DNR/DNI. Discussed that if they decide on comfort measures only - can transition to DNRCC at later time. He has oxygen/neb/cane/walker in place at home. One local child (Edgardo) and daughters live out of state ([facility]/[place], [place]/ [place]). states that she has good support with friends and her anglican family. Most likely will not have biopsy results until first of week. Palliative will f/u on Saturday. (4) HCAP (healthcare-associated pneumonia) Current Visit: Yes Status: Acute Assessment and plan: Continue with IV atb therapy per hospitalist (5) COPD (chronic obstructive pulmonary disease) Current Visit: No Status: Chronic Qualifiers: COPD type: unspecified COPD Qualified Code(s): J44.9 - Chronic obstructive pulmonary disease, unspecified (6) Pancreatic mass Current Visit: Yes Status: Acute (7) Dementia Current Visit: Yes Status: Chronic Qualifiers: Dementia type: unspecified type Dementia behavioral disturbance: without behavioral disturbance Qualified Code(s): F03.90 - Unspecified dementia without behavioral disturbance Palliative-CN HPI - Data of Consult Consult date: 08/02/17 Requesting Physician: Yessenia Spence MD Primary Care Provider: [facility] - Consult Narrative History of present illness: Mr. Shepherd is a 89 year old male who was recently admitted earlier this month for pneumonia and was transferred here from [facility] with increasing weakness and shortness of breath. With workup - CT abdomen demonstrated pancreatic mass suspicious for cancer, elevated bilirubin and liver enzymes. Endoscopy with ERCP/biliary stent performed today. He has hearing/vision disability and receives care on [facility] team at the [facility]. Other medical conditions include: afib , COPD, HTN, Melanoma skin cancer, arthritis. Patient poor historian r/t Alzheimer's dementia and , Kellie at bedside providing information. CC: Yessenia Spence MD Past Med Surg Social Fam HX - Past Medical History Medical history: arthritis, atrial fibrillation, cancer, COPD, hypertension, osteoporosis, other Psychiatric history: no psych history - Past Surgical History Surgical History: appendectomy - Social History Smoking Status: Never smoker Smokeless Tobacco Status: No Alcohol use: none Drug use: none - Family History Mother History Unknown: Yes Living Status: Father History Unknown: Yes Living Status: Medications and Allergies Acetaminophen [Tylenol] 650 mg PO Q6H PRN 06/28/17 [History] Alendronate Sodium [Fosamax] 70 mg PO QWEEK 06/28/17 [History] Calcium Carbonate/Vitamin D3 [Calcium 250+D Tablet] 1 each PO BID 06/28/17 [ History] Cetirizine HCl [Zyrtec] 10 mg PO DAILY 06/28/17 [History] Cranberry 800 mg PO DAILY 06/28/17 [History] Furosemide [Lasix] 20 mg PO DAILY 06/28/17 [History] Leflunomide 10 mg PO Q48H 06/28/17 [History] Memantine HCl 10 mg PO BID 06/28/17 [History] Metoprolol XL (24 HR) Succ [Toprol Xl] 12.5 mg PO DAILY 06/28/17 [History] Potassium Chloride [Klor-Con 10] 10 meq PO DAILY 06/28/17 [History] Tiotropium [Spiriva] 18 mcg IH 0700 06/28/17 [History] Vit C/E/Zn/Coppr/Lutein/Zeaxan [Preservision Areds 2 Softgel] 1 cap PO BID 06/28 [History] Xyzal 5 mg PO DAILY 06/28/17 [History] Albuterol Neb [Proventil Neb] 2.5 mg IH Q4H #42 inhsol 07/02/17 [Rx] L. Acidophilus/Pectin, [place] [Acidophilus Probiotic Capsule] 1 each PO BID [History] 3 Allergy/AdvReac Type Severity Reaction Status Date / Time levofloxacin [From Levaquin] Allergy See Verified 06/28/17 16:59 Comments lisinopril Allergy Swelling Verified 06/28/17 17:00 of Lip/Tongue/Throat methotrexate Allergy See Verified 06/28/17 17:00 Comments naproxen [From Aleve] Allergy Swelling Verified 06/28/17 17:00 of Lip/Tongue/Throat Donepezil [From Aricept] AdvReac See Verified 06/28/17 17:27 Comments ROS unobtainable: due to mental status Palliative Care-Exam - Constitutional Vitals: Temp Pulse Resp BP Pulse Ox 97.4 F L 105 18 154/78 97 08/02/17 06:33 08/02/17 12:15 08/02/17 12:15 08/02/17 12:15 08/02/17 12:15 Internal Medicine - CN: Reslt - Labs CBC & Chem 7: 08/02/17 06:31 08/02/17 06:31 Labs: Short CBC 08/02/17 Range/Units 06:31 WBC 8.3 (4.3-11.1) K/mcL Hgb 9.4 L (12.9-16.9) g/dL Hct 29.6 L (37.5-50.1) % Plt Count 297 (140-400) K/mcL Neutrophils # 6.6 (1.6-8.9) K/mcL BMP 08/02/17 06:31 Sodium 140 Potassium 4.3 Chloride 110 H Carbon Dioxide 23 BUN 26 H Creatinine 1.01 Glucose 98 Calcium 8.5 L - ABG Interpretation ABG results: PT/INR, D-dimer PT 15.9 Seconds (9.4-12.1) H 08/01/17 03:24 - Impressions Impressions Abdomen MRI 08/02/17 08:00 IMPRESSION: 1. Subtle 3.1 x 2.1 cm hypoenhancing mass within the pancreatic head with associated restricted diffusion suspicious for neoplasm until proven otherwise. There is abrupt termination of the common bile duct and pancreatic duct at this level with associated upstream dilation of both systems. There is also marked distention of the gallbladder. 2. 2.5 cm cystic structure in the region of the uncinate process, likely a pseudocyst and can be followed on subsequent exams. 3. Bosniak I bilateral and right Bosniak II renal cyst. 4. Focal 1.2 cm nodular opacity in the right middle lobe. Recommend follow-up as metastatic disease cannot be excluded. 5. No other definite findings of metastatic disease in the abdomen, however exam is moderately limited due to significant respiratory motion. The findings were sent to the Radiology Results Communication Center at 11:26 am on 08/02/2017to be communicated to a licensed caregiver. D/ /02/2017 11:33:35 Milena Rehman MD / torrey Interpreting Provider: Milena Rehman MD Consult Discharge Plan - Plan Referrals: [facility],PCP [Primary Care Provider] - Palliative Quality Palliative Quality: Screen for Code Status: Yes, Screen for Goals of Care: Yes, Screen for Pain: Yes, If Pain Regimen Started, Initiate Bowel Regimen: NA, Screen for Nausea/Vomitting: Yes
--- NOTE | 2017-08-02 15:34 | Anesthesia Evaluation Post Op ---
Date of Encounter: 08/02/17 Time of Encounter: 15:33 - Vital Signs Vital Signs: Vital Signs/O2 Sat, Most Current Temp Pulse Resp BP Pulse Ox 98.9 F 89 16 110/71 98 08/02/17 15:15 08/02/17 15:15 08/02/17 15:15 08/02/17 15:15 08/02/17 15:15 - Lungs Lungs: Clear Ascult./Percussion - Airway Airway: Non-obstructed - Cardiovascular Regular Rate - Mental Status Mental Status: Confused, Baseline Status - Nausea Vomiting Nausea Vomiting: Not Present - Hydration Hydration: NPO - Discharge PostOp Status: Transfer Patient to floor
--- NOTE | 2017-08-02 15:56 | Procedure Note ---
Date of procedure: 08/02/17 Pre-op diagnosis: obst jaundice panc mass Procedure: Panc mass s/p biopsy , preliminary path postive for adenaCA ERCP: stent placed Surgeon: Addie Lucas Was there an assistant field hockey coach present: No Estimated blood loss (cc): 0 IV fluids (cc): 500 Specimen: Panc mass
--- NOTE | 2017-08-02 17:03 | Internal Med Progress Note ---
Date of Encounter: 08/02/17 Time of Encounter: 17:00 - Assessment and plan (1) Pancreatic mass Current Visit: Yes Status: Acute Assessment and plan: ERCP for pancreatic mass and stent placed today. Preliminary pathology results for adenocarcinoma at bedside does not desire to undergo aggressive measures. Palliative has seen and evaluated patient. Will consult Oncology Will provide comfort measures to patient. (2) Multifocal pneumonia Current Visit: No Status: Acute Assessment and plan: Continue Cefepime, doxycycline (3) Hypertension Current Visit: Yes Status: Acute Assessment and plan: On toprol XL Qualifiers: Hypertension type: essential hypertension Qualified Code(s): I10 - Essential (primary) hypertension (4) A-fib Current Visit: No Status: Chronic Assessment and plan: On toprol XL No anticoagulation therapy on home medications, likely patient age and fall risk related. Qualifiers: Atrial fibrillation type: unspecified Qualified Code(s): I48.91 - Unspecified atrial fibrillation (5) COPD (chronic obstructive pulmonary disease) Current Visit: No Status: Chronic Assessment and plan: Not in acute exacerbation Continue Spiriva Qualifiers: COPD type: unspecified COPD Qualified Code(s): J44.9 - Chronic obstructive pulmonary disease, unspecified (6) Dementia Current Visit: Yes Status: Chronic Qualifiers: Dementia type: unspecified type Dementia behavioral disturbance: without behavioral disturbance Qualified Code(s): F03.90 - Unspecified dementia without behavioral disturbance (7) HCV (hepatitis C virus) Current Visit: Yes Status: Acute Qualifiers: Viral hepatitis chronicity: unspecified Hepatic coma status: without hepatic coma Qualified Code(s): B19.20 - Unspecified viral hepatitis C without hepatic coma - Subjective Interval history: Patient returned from ERCP with sent placement. Preliminary pathology results positive for adeno carcinoma. MRI showed pancreas head mass is 3.1x2.1 cm and gallbladder is distended. - Constitutional Vitals: Temp Pulse Resp BP Pulse Ox 98.9 F 89 16 110/71 92 08/02/17 15:15 08/02/17 15:15 08/02/17 15:58 08/02/17 15:15 08/02/17 15:58 General appearance: Present: cachectic, underweight Exam: Stuporous CVS: RRR Lungs: CTAB Abd: soft, non-distended. + bowel sounds Ext: no edema, no cyanosis - Skin Skin exam: Present: dry, intact Additional comments: Jaundiced Internal Medicine: Result - Labs CBC & Chem 7: 08/02/17 06:31 08/02/17 06:31 Labs: Short CBC 08/02/17 Range/Units 06:31 WBC 8.3 (4.3-11.1) K/mcL Hgb 9.4 L (12.9-16.9) g/dL Hct 29.6 L (37.5-50.1) % Plt Count 297 (140-400) K/mcL Neutrophils # 6.6 (1.6-8.9) K/mcL BMP 08/02/17 06:31 Sodium 140 Potassium 4.3 Chloride 110 H Carbon Dioxide 23 BUN 26 H Creatinine 1.01 Glucose 98 Calcium 8.5 L - ABG Interpretation ABG results: PT/INR, D-dimer PT 15.9 Seconds (9.4-12.1) H 08/01/17 03:24 - Impressions Impressions Abdomen MRI 08/02/17 08:00 IMPRESSION: 1. Subtle 3.1 x 2.1 cm hypoenhancing mass within the pancreatic head with associated restricted diffusion suspicious for neoplasm until proven otherwise. There is abrupt termination of the common bile duct and pancreatic duct at this level with associated upstream dilation of both systems. There is also marked distention of the gallbladder. 2. 2.5 cm cystic structure in the region of the uncinate process, likely a pseudocyst and can be followed on subsequent exams. 3. Bosniak I bilateral and right Bosniak II renal cyst. 4. Focal 1.2 cm nodular opacity in the right middle lobe. Recommend follow-up as metastatic disease cannot be excluded. 5. No other definite findings of metastatic disease in the abdomen, however exam is moderately limited due to significant respiratory motion. The findings were sent to the Radiology Results Communication Center at 11:26 am on 08/02/2017to be communicated to a licensed caregiver. D/ /02/2017 11:33:35 Milena Rehman MD / torrey Interpreting Provider: Milena Rehman MD Cath/Invasive Procedure 08/02/17 13:45 IMPRESSION: Intra and extrahepatic biliary ductal dilatation with abrupt termination of common bile duct distally, likely intrapancreatic and relating to pancreatic mass noted on MRI earlier today. Final image demonstrates a biliary stent traversing the presumed region of obstruction. Reference to procedure report can be made for additional information. D/ / 08/02/2017 14:35:47 Shar Rios MD / harman Interpreting Provider: Shar Rios MD Consult Discharge Plan - Plan [facility]errals: [facility] [Primary Care Provider] -
--- NOTE | 2017-08-02 18:29 | Oncology Inp Consult Note ---
Date of Encounter: 08/02/17 Time of Encounter: 18:00 Assessment and Plan (1) Pancreatic mass Status: Acute Assessment and plan: Mr. anne has been found to have a head of the pancreas mass with associated double duct sign. Clinically this is consistent with pancreatic adenocarcinoma. By report, papillary pathology echoes this. Final pathology is currently pending. He has an indeterminate RML lung nodule and final staging is pending. I met with his today and discussed his current clinical situation. She understands that he is not a surgical candidate. We discussed palliative options of chemotherapy which would be the most appropriate choice. We also discussed the option of not pursuing further therapy. As he does not have metastatic disease, he will likely of a number of months and chemotherapy may add a few months to this number with the risk of toxicity. We discussed specifically using single agent dose adjusted gemcitabine as our go to option. She is uncertain that he would want to do this , and she is uncertain she would want him to go through with this. My gestalt would be to avoid chemotherapy in this scenario and allow him to live his life as normally as possible in the absence of chemotherapy. She would like to discuss this with her children and I have recommended we meet together as an outpatient after discharge to finalize this decision. I think not pursuing therapy in this situation is completely reasonable and he may benefit from outpatient hospice services. However, they do want to try chemotherapy, it is something we can certainly discuss although I would not be enthusiastic. I will have my office set up an appointment late next week, early the following week for consultation. I encourage you to call me with any concerns or questions. My cell phone is [phone] - Data of Consult Requesting Physician: Yessenia Spence MD Primary Care Provider: [facility] - Consult Narrative Reason for consult: New pancreatic cancer History of present illness: Mr. Anne is a 89 year old male with baseline moderate Alzheimer's dementia and lives with his at home who has been diagnosed with newly diagnosed localized pancreatic cancer. Patient was possible to June 28 through 2017 for hospital-acquired pneumonia with associated sepsis. He has recovered uneventfully from this event. He was weak and debilitated but his states he was regaining his strength dated today. After discharge, he was found to have worsening liver function testing as well as increasing weakness per his prompting ER visit. Per the records, he appeared to have previous imaging showing a pancreatic head lesion of those liver function testing at that juncture was normal. Gastric neurology was consult and recommended MRI of the abdomen which is reviewed below. This showed a 1.2 cm indeterminate mass in the right middle lobe of the lung as well as a subtle 3.1 x 2.1 cm hypoenhancing mass within the pancreatic head with associated restricted diffusion with double duct sign suspicious for neoplasm. There is also marked distention of the gallbladder. 2.5 cm cystic structure in the region of the uncinate process, likely pseudocyst and can be followed on subsequent exams. The patient just completed ERCP with biliary stent placement without complication and is currently resting. He awakens to voice but is unable to provide further history. I did speak with his , Kellie,. She states that up until this past month, he is doing well. Physically, he is able to do all his normal ADLs. He helps her caring groceries upstairs and putting them away. He does have dementia and states that he does have difficulties with this at times. Often times, he will be forgetful. He also will have some sundowning. There is no anger or violence associated with his dementia. I am counseled to aid in his management. Palliative care has seen the patient. They have clarified his wishes for DNR status. Past Med Surg Social Fam HX - Past Medical History Medical history: arthritis, atrial fibrillation, cancer, COPD, hypertension, osteoporosis, other Psychiatric history: no psych history - Past Surgical History Surgical History: appendectomy - Social History Smoking Status: Never smoker Smokeless Tobacco Status: No Alcohol use: none Drug use: none - Family History Mother History Unknown: Yes Living Status: Father History Unknown: Yes Living Status: Medications and Allergies Acetaminophen [Tylenol] 650 mg PO Q6H PRN 06/28/17 [History] Alendronate Sodium [Fosamax] 70 mg PO QWEEK 06/28/17 [History] Calcium Carbonate/Vitamin D3 [Calcium 250+D Tablet] 1 each PO BID 06/28/17 [ History] Cetirizine HCl [Zyrtec] 10 mg PO DAILY 06/28/17 [History] Cranberry 800 mg PO DAILY 06/28/17 [History] Furosemide [Lasix] 20 mg PO DAILY 06/28/17 [History] Leflunomide 10 mg PO Q48H 06/28/17 [History] Memantine HCl 10 mg PO BID 06/28/17 [History] Metoprolol XL (24 HR) Succ [Toprol Xl] 12.5 mg PO DAILY 06/28/17 [History] Potassium Chloride [Klor-Con 10] 10 meq PO DAILY 06/28/17 [History] Tiotropium [Spiriva] 18 mcg IH 0700 06/28/17 [History] Vit C/E/Zn/Coppr/Lutein/Zeaxan [Preservision Areds 2 Softgel] 1 cap PO BID 06/28 [History] Xyzal 5 mg PO DAILY 06/28/17 [History] Albuterol Neb [Proventil Neb] 2.5 mg IH Q4H #42 inhsol 07/02/17 [Rx] L. Acidophilus/Pectin, [place] [Acidophilus Probiotic Capsule] 1 each PO BID [History] 3 Allergy/AdvReac Type Severity Reaction Status Date / Time levofloxacin [From Levaquin] Allergy See Verified 06/28/17 16:59 Comments lisinopril Allergy Swelling Verified 06/28/17 17:00 of Lip/Tongue/Throat methotrexate Allergy See Verified 06/28/17 17:00 Comments naproxen [From Aleve] Allergy Swelling Verified 06/28/17 17:00 of Lip/Tongue/Throat Donepezil [From Aricept] AdvReac See Verified 06/28/17 17:27 Comments ROS unobtainable: due to mental status Oncology - Exam - Constitutional Vitals: Temp Pulse Resp BP Pulse Ox 98.9 F 89 16 110/71 92 08/02/17 15:15 08/02/17 15:15 08/02/17 15:58 08/02/17 15:15 08/02/17 15:58 General appearance: no acute distress, thin - Head Head exam: Present: atraumatic, normal inspection, normocephalic - Eye Eye exam: Present: scleral icterus, conjuntiva pink - ENT ENT exam: Present: mucous membranes dry, normal exam, normal oropharynx - Neck Neck exam: Present: full ROM, normal inspection - Respiratory Respiratory exam: Present: CTAB - Cardiovascular Cardiovascular exam: Present: RRR - GI/Abdominal GI/Abdominal exam: Present: diminished bowel sounds, soft - Extremities Exam Extremities exam: Present: normal inspection - Neurological Exam Neurological exam: Present: altered, no focal deficits Oncology - Results Labs: Short CBC 08/02/17 Range/Units 06:31 WBC 8.3 (4.3-11.1) K/mcL Hgb 9.4 L (12.9-16.9) g/dL Hct 29.6 L (37.5-50.1) % Plt Count 297 (140-400) K/mcL Neutrophils # 6.6 (1.6-8.9) K/mcL BMP 08/02/17 06:31 Sodium 140 Potassium 4.3 Chloride 110 H Carbon Dioxide 23 BUN 26 H Creatinine 1.01 Glucose 98 Calcium 8.5 L MRI OF THE ABDOMEN WITH AND WITHOUT CONTRAST, 08/02/2017 11:10 am TECHNIQUE: Multiplanar multisequence MRI of the abdomen was performed with and without the administration of intravenous contrast. Exam is moderately degraded due to respiratory motion artifact. COMPARISON: CT 07/31/2017 and 09/06/2010, ultrasound 12/21/2011. HISTORY: ORDERING SYSTEM PROVIDED HISTORY: abd--PANCREATIC MASS Additional tech notes: SCHEDULED FOR 0945 Follow-up exam. FINDINGS: Pancreas: Exam is significantly limited due to respiratory motion artifact on the postcontrast images through the pancreas. There is pancreatic duct dilation with associated pancreatic body and tail atrophy. The pancreatic duct measures up to 10 mm in maximum dilation. There is a 2.5 x 2.0 cm cystic structure in the region of the uncinate process which demonstrates no associated enhancement, which may reflect a focally dilated duct versus a pseudocyst. There is abrupt termination of the pancreatic duct within the pancreatic head, where there is a subtle 3.1 x 2.1 cm hypoenhancing mass which demonstrates restricted diffusion. This is best seen on series 16, image 52). Biliary tree: There is moderate intra and extrahepatic biliary duct dilation with the common bile duct measuring up to 14 mm. There is marked dilation of the gallbladder which measures up to 13 x 6 cm. No definite cholelithiasis. No significant wall thickening or pericholecystic fluid. Liver: No abnormal loss of signal intensity of liver parenchyma on the T1 in or out of phase images. There is a 1.9 x 1.6 cm T2 hyperintense nonenhancing lesion in the left lateral segment compatible with a simple cyst. No other focal hepatic lesion is grossly identified. Kidneys: Multifocal areas of scarring are noted in both kidneys. There are bilateral simple cysts the largest measuring up to 3.0 x 2.6 cm in the left kidney. There is a minimally complex cyst in the right kidney measuring 2.8 x 2.3 cm with thin internal septations without associated enhancement. The kidneys otherwise enhance symmetrically. No hydronephrosis or perinephric stranding. Other: The spleen and adrenal glands are grossly without focal abnormality. The portal venous system appears grossly patent. The aorta is normal in caliber with moderate atherosclerosis. No definite adenopathy or ascites. Subcutaneous edema. Trace bilateral pleural effusions with bibasilar atelectasis. Again noted is a focal 1.2 cm nodular opacity in the right middle lobe. The visualized bowel is grossly unremarkable. MR/MR abdomen wo/w con IMPRESSION: 1. Subtle 3.1 x 2.1 cm hypoenhancing mass within the pancreatic head with associated restricted diffusion suspicious for neoplasm until proven otherwise. There is abrupt termination of the common bile duct and pancreatic duct at this level with associated upstream dilation of both systems. There is also marked distention of the gallbladder. 2. 2.5 cm cystic structure in the region of the uncinate process, likely a pseudocyst and can be followed on subsequent exams. 3. Bosniak I bilateral and right Bosniak II renal cyst. 4. Focal 1.2 cm nodular opacity in the right middle lobe. Recommend follow-up as metastatic disease cannot be excluded. 5. No other definite findings of metastatic disease in the abdomen, however exam is moderately limited due to significant respiratory motion. The findings were sent to the Radiology Results Communication Center at 11:26 am on 08/02/2017to be communicated to a licensed caregiver. Consult Discharge Plan - Plan [facility]errals: [facility] [Primary Care Provider] -
[2017-08-03] MEDS: Levalbuterol Neb 1.25 MG/3 ML IH SCH ×4 (03:36→22:23)
[2017-08-03] MEDS: Cefepime HCl 2,000 MG in Water for inj. (sterile) 20 ML IVP SCH ×2 (05:06→16:34)
[2017-08-03] MEDS: *HR* Heparin 5,000 UNIT/ML VIAL SQ SCH ×2 (05:07→18:04)
[2017-08-03 06:00] LABS: Basophils # 0.1 K/mcL (0.0-0.2); Basophils % 1.3 %; Eosinophils # 0.1 K/mcL (0.0-0.6); Eosinophils % 0.8 %; Hematocrit 28.3 % (37.5-50.1); Hemoglobin 8.8 g/dL (12.9-16.9); Immature Granulocytes % 1.2 % (0-4); Lymphocytes # 0.7 K/mcL (0.6-4.6); Lymphocytes % 7.7 %; Mean Corpuscular HGB Conc 31.1 g/dL (31.6-35.5); Mean Corpuscular Hemoglobin 28.8 pg (28.0-33.3); Mean Corpuscular Volume 92.5 fL (83.0-100.0); Mean Platelet Volume 11.1 fL (9.4-12.4); Monocytes # 0.8 K/mcL (0.0-1.3); Monocytes % 9.1 %; Neutrophils # 6.8 K/mcL (1.6-8.9); Platelet Count 301 K/mcL (140-400); Red Blood Count 3.06 M/mcL (4.19-5.50); Red Cell Distribution Width 21.4 % (11.5-14.5); Segmented Neutrophils % 79.9 %
[2017-08-03 06:24] LABS: BUN/Creatinine Ratio 30 (6-26); Blood Urea Nitrogen 29 mg/dL (8-23); Calcium 8.1 mg/dL (8.6-10.3); Carbon Dioxide 22 mEq/L (23-29); Chloride 111 mEq/L (98-107); Glucose 75 mg/dL (70-105); Osmolality,Calculated 297 (280-300); Potassium 4.2 mEq/L (3.5-5.1); Sodium 141 mEq/L (136-145); eGFR For African Americans > 60 (> 60); eGFR For Non-African Americans > 60 (> 60)
--- NOTE | 2017-08-03 07:28 | Palliative Progress Note ---
Date of Encounter: 08/03/17 Time of Encounter: 07:15 - Assessment and plan (1) COPD (chronic obstructive pulmonary disease) Current Visit: No Status: Chronic Assessment and plan: Stable at this time, plan per hospitalist team Qualifiers: COPD type: unspecified COPD Qualified Code(s): J44.9 - Chronic obstructive pulmonary disease, unspecified (2) Pancreatic mass Current Visit: Yes Status: Acute Assessment and plan: Status post ERCP and stent placement. he will probably end up transitioning to hospice after the weekend. Merlyn is waiting on biopsy results (3) Counseling regarding advanced care planning and goals of care Current Visit: Yes Status: Acute Assessment and plan: CODE STATUS DNR CCA DNI. Her conversations with my nurse practitioner the patient's family is waiting on the results of the Aloxi to make final determinations as to course of action but will probably end up going with hospice care. He does note from oncology regarding the same. Continue to watch (4) Anxiety Current Visit: Yes Status: Acute Assessment and plan: Under good control has only used 2 doses of Ativan over the last couple of days. Continue to watch (5) Multifocal pneumonia Current Visit: No Status: Acute Assessment and plan: Blood cultures negative patient on antibiotics plan per hospitalist team patient is eating well at this time per the patient. - Time Spent With Patient Total time spent is greater than 50% in coordination of care (as documented) at patient's floor/unit and/or counseling patient: - Subjective Interval history: The patient has only complaint of small amount of pain in the feet. States medications have been effective. I encouraged him to ask for his medications had no other concerns at this time. - Constitutional Vitals: Abnormal lab results RBC 3.06 M/mcL (4.19-5.50) L 08/03/17 05:35 Hgb 8.8 g/dL (12.9-16.9) L 08/03/17 05:35 Hct 28.3 % (37.5-50.1) L 08/03/17 05:35 MCHC 31.1 g/dL (31.6-35.5) L 08/03/17 05:35 RDW 21.4 % (11.5-14.5) H 08/03/17 05:35 PT 15.9 Seconds (9.4-12.1) H 08/01/17 03:24 Chloride 111 mEq/L (98-107) H 08/03/17 05:35 Carbon Dioxide 22 mEq/L (23-29) L 08/03/17 05:35 BUN 29 mg/dL (8-23) H 08/03/17 05:35 BUN/Creatinine Ratio 30 (6-26) H 08/03/17 05:35 POC Glucose 92 (58-89) H 08/02/17 16:19 Calcium 8.1 mg/dL (8.6-10.3) L 08/03/17 05:35 Total Bilirubin 6.4 mg/dL (0.3-1.0) H 08/01/17 03:24 Direct Bilirubin 4.0 mg/dL (0.0-0.2) H 08/01/17 03:24 Indirect Bilirubin 2.4 mg/dL (0.0-1.2) H 08/01/17 03:24 AST 213 Units/L (13-39) H 08/01/17 03:24 ALT 156 Units/L (7-52) H 08/01/17 03:24 Alkaline Phosphatase > 1500 Units/L (34-104) H 08/01/17 03:24 Albumin 2.9 g/dL (3.5-5.7) L 08/01/17 03:24 Globulin 3.8 g/dL (2.4-3.5) H 08/01/17 03:24 Albumin/Globulin Ratio 0.8 (1.1-2.2) L 08/01/17 03:24 Cholesterol 209 mg/dL (< 200) H 08/01/17 03:24 LDL Cholesterol, Calc 174 mg/dL (0-99) H 08/01/17 03:24 HDL Cholesterol 17 mg/dL (40-59) L 08/01/17 03:24 Cholesterol/HDL Ratio 12.3 (0-4.9) H 08/01/17 03:24 Amylase 16 Units/L (29-103) L 08/01/17 03:24 Lipase 204 Units/L (11-82) H 08/01/17 03:24 Hepatitis C Ab Screen Reactive (Nonreactive) H 07/31/17 20:58 General appearance: Present: no acute distress - Head Head exam: Present: atraumatic, normal inspection - Eye Eye exam: Present: normal appearance - Respiratory Respiratory exam: Present: CTAB - Cardiovascular Cardiovascular exam: Present: irregular rhythm, tachycardia - GI/Abdominal GI/Abdominal exam: Present: normal bowel sounds, soft. Absent: tenderness - Extremities Exam Extremities exam: Absent: pedal edema, tenderness - Neurological Exam Neurological exam: Present: alert (Awakens easily) - Psychiatric Psychiatric exam: Absent: agitated, anxious - Skin Skin exam: Present: dry, warm Palliative Quality Palliative Quality: Screen for Code Status: Yes, Screen for Goals of Care: Yes, Screen for Pain: Yes, If Pain Regimen Started, Initiate Bowel Regimen: NA, Screen for Nausea/Vomitting: Yes Code Status: 08/02/17 14:44 DNR [Resuscitation Status: Active] [RES] Routine Comment: Resuscitation Status: [id number] - Labs CBC & Chem 7: 08/03/17 05:35 08/03/17 05:35 Labs: Laboratory Results - last 24 hr 08/02/17 08/02/17 08/03/17 16:19 21:49 05:35 WBC 8.5 RBC 3.06 L Hgb 8.8 L Hct 28.3 L MCV 92.5 MCH 28.8 MCHC 31.1 L RDW 21.4 H Plt Count 301 MPV 11.1 Immature Gran % 1.2 Seg Neutrophils % 79.9 Lymphocytes % 7.7 Monocytes % 9.1 Eosinophils % 0.8 Basophils % 1.3 Neutrophils # 6.8 Lymphocytes # 0.7 Monocytes # 0.8 Eosinophils # 0.1 Basophils # 0.1 Sodium Potassium Chloride Carbon Dioxide BUN Creatinine Est GFR ( Amer) Est GFR (Non-Af Amer) BUN/Creatinine Ratio Glucose POC Glucose 92 H Calculated Osmolality Calcium Vancomycin Trough 11.2 08/03/17 05:35 WBC RBC Hgb Hct MCV MCH MCHC RDW Plt Count MPV Immature Gran % Seg Neutrophils % Lymphocytes % Monocytes % Eosinophils % Basophils % Neutrophils # Lymphocytes # Monocytes # Eosinophils # Basophils # Sodium 141 Potassium 4.2 Chloride 111 H Carbon Dioxide 22 L BUN 29 H Creatinine 0.97 Est GFR ( Amer) > 60 Est GFR (Non-Af Amer) > 60 BUN/Creatinine Ratio 30 H Glucose 75 POC Glucose Calculated Osmolality 297 Calcium 8.1 L Vancomycin Trough - Impressions Impressions Chest X-Ray 08/01/17 08:00 IMPRESSION: Interval worsening of airspace opacity within the right upper lobe with persistent multifocal opacities bilaterally. Consider further evaluation with CT. D/ 08/01/2017 10:10:09 Milena Rehman MD / harjinder Interpreting Provider: Milena Rehman MD Abdomen MRI 08/02/17 08:00 IMPRESSION: 1. Subtle 3.1 x 2.1 cm hypoenhancing mass within the pancreatic head with associated restricted diffusion suspicious for neoplasm until proven otherwise. There is abrupt termination of the common bile duct and pancreatic duct at this level with associated upstream dilation of both systems. There is also marked dilation of the gallbladder. 2. 2.5 cm cystic structure in the region of the uncinate process, likely a pseudocyst and can be followed on subsequent exams or on EUS. 3. Bosniak I bilateral and right Bosniak II renal cysts. 4. Focal 1.2 cm nodular opacity in the right middle lobe. Recommend follow-up as metastatic disease cannot be excluded. 5. No other definite findings of metastatic disease in the abdomen, however exam is moderately limited due to significant respiratory motion. The findings were sent to the Radiology Results Communication Center at 11:26 am on 08/02/2017to be communicated to a licensed caregiver. D/ 08/02/2017 11:33:35 Milena Rehman MD / torrey Interpreting Provider: Milena Rehman MD Cath/Invasive Procedure 08/02/17 13:45 IMPRESSION: Intra and extrahepatic biliary ductal dilatation with abrupt termination of common bile duct distally, likely intrapancreatic and relating to pancreatic mass noted on MRI earlier today. Final image demonstrates a biliary stent traversing the presumed region of obstruction. Reference to procedure report can be made for additional information. D/ 08/02/2017 14:35:47 Shar Rios MD / harman Interpreting Provider: Shar Rios MD - ABG Interpretation ABG results: PT/INR, D-dimer PT 15.9 Seconds (9.4-12.1) H 08/01/17 03:24 Consult Discharge Plan - Plan Referrals: [facility] [Primary Care Provider] -
[2017-08-03] MEDS ORDERED: *HR* Metoprolol 5 MG/5 ML VIAL IVP PRN (07:36)
[2017-08-03] MEDS: Metoprolol XL (24 HR) Succ 25 MG TAB.ER.24H PO SCH (09:01)
[2017-08-03] MEDS: Doxycycline 100 MG CAPSULE PO SCH ×2 (09:01→21:49)
[2017-08-03] MEDS: Lactobacillus 1 EACH CAP.SPRINK PO SCH ×2 (09:01→21:49)
[2017-08-03] MEDS: Tiotropium 18 MCG inhalation IH SCH (11:15)
--- NOTE | 2017-08-03 11:22 | Oncology Inp Progress Note ---
Date of Encounter: 08/03/17 Time of Encounter: 10:30 (1) Pancreatic mass Current Visit: Yes Status: Acute Assessment and plan: Mr. anne has been found to have a head of the pancreas mass with associated double duct sign. Clinically this is consistent with pancreatic adenocarcinoma. Pathology is pending. I met with his last night and patient this morning. Although he is functional, he has significant dementia. I think hospice will be most appropriate. will d/w family, and I will set up an an appointment late next week, early the following week for consultation. I encourage you to call me with any concerns or questions. My cell phone is [phone]. He may be d/c from our perspective Oncology: Subj Interval history: He is sitting up in his chair. He is feeling well. A bit SOB but no pain. Energy is down. He does not recall any conversations he has had for last day or two and does not recall any results from imaging. He has significant dementia. He is hard of hearing. - Constitutional Vitals: Vital Signs Temp Pulse Resp BP Pulse Ox 08/03/17 10:44 97.8 F 120 18 126/62 92 08/03/17 09:08 94 08/03/17 06:54 98.6 F 117 16 122/69 94 08/03/17 04:57 98.0 F 102 16 137/73 92 08/03/17 03:36 16 91 08/02/17 23:58 97.6 F 106 16 147/73 100 08/02/17 22:53 18 99 08/02/17 19:08 98.1 F 88 18 144/65 100 08/02/17 15:58 16 92 08/02/17 15:15 98.9 F 89 16 110/71 98 08/02/17 15:05 90 20 120/73 100 08/02/17 14:55 98.1 F 86 20 123/81 100 08/02/17 14:45 89 20 121/75 99 08/02/17 14:35 98 22 141/87 100 08/02/17 14:25 98.1 F 118 20 140/88 100 08/02/17 12:15 105 18 154/78 97 Intake and Output 08/03/17 08/03/17 08/03/17 00:59 08:59 16:59 Intake Total 240 / 240 720 / 720 Output Total 200 / 200 Balance 240 / 240 520 / 520 Intake: Oral 240 / 240 720 / 720 Output: Urine 200 / 200 Other: Stool Size Small Stool Consistency soft Stool Color Brown # Voids 1 # Bowel Movement Diapers 1 Blood Glucose* 69 General appearance: cooperative, no acute distress, thin - Head Head exam: Present: atraumatic, normal inspection, normocephalic - Eye Eye exam: Present: scleral icterus, conjuntiva pink - ENT ENT exam: Present: mucous membranes dry, mucous membranes moist - Neck Neck exam: Present: full ROM, normal inspection - Respiratory Respiratory exam: Present: decreased breath sounds - Cardiovascular Cardiovascular exam: Present: RRR - GI/Abdominal GI/Abdominal exam: Present: diminished bowel sounds, soft - Extremities Exam Extremities exam: Present: normal inspection - Back Exam Back exam: Present: normal inspection - Neurological Exam Neurological exam: Present: alert, no focal deficits Oncology: Obj Data - Labs CBC & Chem 7: 08/03/17 05:35 08/03/17 05:35 Labs: Laboratory Results - last 24 hr 08/02/17 08/02/17 08/03/17 16:19 21:49 05:35 WBC 8.5 RBC 3.06 L Hgb 8.8 L Hct 28.3 L MCV 92.5 MCH 28.8 MCHC 31.1 L RDW 21.4 H Plt Count 301 MPV 11.1 Immature Gran % 1.2 Seg Neutrophils % 79.9 Lymphocytes % 7.7 Monocytes % 9.1 Eosinophils % 0.8 Basophils % 1.3 Neutrophils # 6.8 Lymphocytes # 0.7 Monocytes # 0.8 Eosinophils # 0.1 Basophils # 0.1 Sodium Potassium Chloride Carbon Dioxide BUN Creatinine Est GFR ( Amer) Est GFR (Non-Af Amer) BUN/Creatinine Ratio Glucose POC Glucose 92 H Calculated Osmolality Calcium Vancomycin Trough 11.2 08/03/17 08/03/17 05:35 07:24 WBC RBC Hgb Hct MCV MCH MCHC RDW Plt Count MPV Immature Gran % Seg Neutrophils % Lymphocytes % Monocytes % Eosinophils % Basophils % Neutrophils # Lymphocytes # Monocytes # Eosinophils # Basophils # Sodium 141 Potassium 4.2 Chloride 111 H Carbon Dioxide 22 L BUN 29 H Creatinine 0.97 Est GFR ( Amer) > 60 Est GFR (Non-Af Amer) > 60 BUN/Creatinine Ratio 30 H Glucose 75 POC Glucose 69 Calculated Osmolality 297 Calcium 8.1 L Vancomycin Trough - Impressions Impressions Chest X-Ray 08/01/17 08:00 IMPRESSION: Interval worsening of airspace opacity within the right upper lobe with persistent multifocal opacities bilaterally. Consider further evaluation with CT. D/ 08/01/2017 10:10:09 Milena Rehman MD / harjinder Interpreting Provider: Milena Rehman MD Abdomen MRI 08/02/17 08:00 IMPRESSION: 1. Subtle 3.1 x 2.1 cm hypoenhancing mass within the pancreatic head with associated restricted diffusion suspicious for neoplasm until proven otherwise. There is abrupt termination of the common bile duct and pancreatic duct at this level with associated upstream dilation of both systems. There is also marked dilation of the gallbladder. 2. 2.5 cm cystic structure in the region of the uncinate process, likely a pseudocyst and can be followed on subsequent exams or on EUS. 3. Bosniak I bilateral and right Bosniak II renal cysts. 4. Focal 1.2 cm nodular opacity in the right middle lobe. Recommend follow-up as metastatic disease cannot be excluded. 5. No other definite findings of metastatic disease in the abdomen, however exam is moderately limited due to significant respiratory motion. The findings were sent to the Radiology Results Communication [facility] at 11:26 am on 08/02/2017to be communicated to a licensed caregiver. D/ /02/2017 11:33:35 Milena Rehman MD / torrey Interpreting Provider: Milena Rehman MD Cath/Invasive Procedure 08/02/17 13:45 IMPRESSION: Intra and extrahepatic biliary ductal dilatation with abrupt termination of common bile duct distally, likely intrapancreatic and relating to pancreatic mass noted on MRI earlier today. Final image demonstrates a biliary stent traversing the presumed region of obstruction. Reference to procedure report can be made for additional information. D/ / 08/02/2017 14:35:47 Shar Rios MD / harman Interpreting Provider: Shar Rios MD - ABG Interpretation ABG results: PT/INR, D-dimer PT 15.9 Seconds (9.4-12.1) H 08/01/17 03:24 Consult Discharge Plan - Plan [facility]errals: [facility] [Primary Care Provider] -
--- NOTE | 2017-08-03 13:21 | Internal Med Progress Note ---
Date of Encounter: 08/03/17 Time of Encounter: 13:21 - Assessment and plan (1) Multifocal pneumonia Current Visit: No Status: Acute Assessment and plan: Continue Cefepime, doxycycline Likely stable for home with hospice Saturday (2) Pancreatic mass Current Visit: Yes Status: Acute Assessment and plan: ERCP for pancreatic mass and stent placed today. Preliminary pathology results for adenocarcinoma at bedside does not desire to undergo aggressive measures. Palliative has seen and evaluated patient. Will consult Oncology Will provide comfort measures to patient. (3) Hypertension Current Visit: Yes Status: Acute Assessment and plan: On toprol XL Qualifiers: Hypertension type: essential hypertension Qualified Code(s): I10 - Essential (primary) hypertension (4) A-fib Current Visit: No Status: Chronic Assessment and plan: On toprol XL No anticoagulation therapy on home medications, likely patient age and fall risk related. Qualifiers: Atrial fibrillation type: unspecified Qualified Code(s): I48.91 - Unspecified atrial fibrillation (5) COPD (chronic obstructive pulmonary disease) Current Visit: No Status: Chronic Assessment and plan: Not in acute exacerbation Continue Spiriva Qualifiers: COPD type: unspecified COPD Qualified Code(s): J44.9 - Chronic obstructive pulmonary disease, unspecified (6) Dementia Current Visit: Yes Status: Chronic Qualifiers: Dementia type: unspecified type Dementia behavioral disturbance: without behavioral disturbance Qualified Code(s): F03.90 - Unspecified dementia without behavioral disturbance (7) HCV (hepatitis C virus) Current Visit: Yes Status: Acute Qualifiers: Viral hepatitis chronicity: unspecified Hepatic coma status: without hepatic coma Qualified Code(s): B19.20 - Unspecified viral hepatitis C without hepatic coma - Subjective Interval history: Patient returned from ERCP with sent placement. Preliminary pathology results positive for adeno carcinoma. MRI showed pancreas head mass is 3.1x2.1 cm and gallbladder is distended. Patient has no complaints today. - Constitutional Vitals: Temp Pulse Resp BP Pulse Ox 97.8 F 120 18 126/62 92 08/03/17 10:44 08/03/17 10:44 08/03/17 10:44 08/03/17 10:44 08/03/17 10:44 General appearance: Present: cachectic, underweight Exam: More awake today, AAOx1 CVS: RRR Lungs: CTAB Abd: soft, non-distended. + bowel sounds Ext: no edema, no cyanosis Internal Medicine: Result - Labs CBC & Chem 7: 08/03/17 05:35 08/03/17 05:35 Labs: Short CBC 08/03/17 Range/Units 05:35 WBC 8.5 (4.3-11.1) K/mcL Hgb 8.8 L (12.9-16.9) g/dL Hct 28.3 L (37.5-50.1) % Plt Count 301 (140-400) K/mcL Neutrophils # 6.8 (1.6-8.9) K/mcL BMP 08/03/17 05:35 Sodium 141 Potassium 4.2 Chloride 111 H Carbon Dioxide 22 L BUN 29 H Creatinine 0.97 Glucose 75 Calcium 8.1 L - ABG Interpretation ABG results: PT/INR, D-dimer PT 15.9 Seconds (9.4-12.1) H 08/01/17 03:24 - Impressions Impressions Chest X-Ray 08/01/17 08:00 IMPRESSION: Interval worsening of airspace opacity within the right upper lobe with persistent multifocal opacities bilaterally. Consider further evaluation with CT. D/ / 08/01/2017 10:10:09 Milena Rehman MD / [email or web address] Interpreting Provider: Milena Rehman MD Abdomen MRI 08/02/17 08:00 IMPRESSION: 1. Subtle 3.1 x 2.1 cm hypoenhancing mass within the pancreatic head with associated restricted diffusion suspicious for neoplasm until proven otherwise. There is abrupt termination of the common bile duct and pancreatic duct at this level with associated upstream dilation of both systems. There is also marked dilation of the gallbladder. 2. 2.5 cm cystic structure in the region of the uncinate process, likely a pseudocyst and can be followed on subsequent exams or on EUS. 3. Bosniak I bilateral and right Bosniak II renal cysts. 4. Focal 1.2 cm nodular opacity in the right middle lobe. Recommend follow-up as metastatic disease cannot be excluded. 5. No other definite findings of metastatic disease in the abdomen, however exam is moderately limited due to significant respiratory motion. The findings were sent to the Radiology Results Communication Center at 11:26 am on 08/02/2017to be communicated to a licensed caregiver. D/ /02/2017 11:33:35 Milena Rehman MD / torrey Interpreting Provider: Milena Rehman MD Cath/Invasive Procedure 08/02/17 13:45 IMPRESSION: Intra and extrahepatic biliary ductal dilatation with abrupt termination of common bile duct distally, likely intrapancreatic and relating to pancreatic mass noted on MRI earlier today. Final image demonstrates a biliary stent traversing the presumed region of obstruction. Reference to procedure report can be made for additional information. D/ / 08/02/2017 14:35:47 Shar Rios MD / harman Interpreting Provider: Shar Rios MD Consult Discharge Plan - Plan [facility]errals: [facility] [Primary Care Provider] -
[2017-08-04] MEDS: Levalbuterol Neb 1.25 MG/3 ML IH SCH ×4 (03:47→22:43)
[2017-08-04 05:21] LABS: Basophils # 0.1 K/mcL (0.0-0.2); Eosinophils # 0.2 K/mcL (0.0-0.6); Eosinophils % 2.5 %; Hematocrit 27.8 % (37.5-50.1); Hemoglobin 8.6 g/dL (12.9-16.9); Immature Granulocytes % 1.9 % (0-4); Lymphocytes # 0.7 K/mcL (0.6-4.6); Lymphocytes % 7.8 %; Mean Corpuscular HGB Conc 30.9 g/dL (31.6-35.5); Mean Corpuscular Hemoglobin 28.7 pg (28.0-33.3); Mean Corpuscular Volume 92.7 fL (83.0-100.0); Mean Platelet Volume 11.3 fL (9.4-12.4); Monocytes # 0.9 K/mcL (0.0-1.3); Neutrophils # 6.8 K/mcL (1.6-8.9); Platelet Count 306 K/mcL (140-400); Red Cell Distribution Width 20.6 % (11.5-14.5); Segmented Neutrophils % 76.8 %
[2017-08-04 05:40] LABS: BUN/Creatinine Ratio 33 (6-26); Blood Urea Nitrogen 30 mg/dL (8-23); Calcium 7.8 mg/dL (8.6-10.3); Carbon Dioxide 21 mEq/L (23-29); Chloride 110 mEq/L (98-107); Glucose 105 mg/dL (70-105); Osmolality,Calculated 295 (280-300); Sodium 139 mEq/L (136-145); eGFR For African Americans > 60 (> 60); eGFR For Non-African Americans > 60 (> 60)
[2017-08-04] MEDS: *HR* Heparin 5,000 UNIT/ML VIAL SQ SCH ×2 (06:11→17:51)
[2017-08-04] MEDS: Cefepime HCl 2,000 MG in Water for inj. (sterile) 20 ML IVP SCH (06:11)
--- NOTE | 2017-08-04 07:45 | Palliative Progress Note ---
Date of Encounter: 08/04/17 Time of Encounter: 07:15 - Assessment and plan (1) COPD (chronic obstructive pulmonary disease) Current Visit: No Status: Chronic Assessment and plan: Stable at this time, plan per hospitalist team As above Qualifiers: COPD type: unspecified COPD Qualified Code(s): J44.9 - Chronic obstructive pulmonary disease, unspecified (2) Pancreatic mass Current Visit: Yes Status: Acute Assessment and plan: Status post ERCP and stent placement. he will probably end up transitioning to hospice after the weekend. Family is waiting on biopsy results No changes today (3) Counseling regarding advanced care planning and goals of care Current Visit: Yes Status: Acute Assessment and plan: CODE STATUS DNR CCA DNI. Her conversations with my nurse practitioner the patient's family is waiting on the results of the Aloxi to make final determinations as to course of action but will probably end up going with hospice care. He does note from oncology regarding the same. Continue to watch Dill anticipating patient will probably transition to home with hospice, family is waiting on the biopsy results. (4) Anxiety Current Visit: Yes Status: Acute Assessment and plan: Under good control has only used 2 doses of Ativan over the last couple of days. Continue to watch Continues to be under good control (5) Multifocal pneumonia Current Visit: No Status: Acute Assessment and plan: Blood cultures negative patient on antibiotics plan per hospitalist team patient is eating well at this time per the patient. Cultures continue negative, white blood cell count count is normal. - Time Spent With Patient Total time spent is greater than 50% in coordination of care (as documented) at patient's floor/unit and/or counseling patient: - Subjective Interval history: The patient has no complaint of this morning per nurses did quite well yesterday last night was trying to get up out of bed, however is will to be reoriented. Patient does best when his family is here.. - Constitutional Vitals: Abnormal lab results RBC 3.00 M/mcL (4.19-5.50) L 08/04/17 04:25 Hgb 8.6 g/dL (12.9-16.9) L 08/04/17 04:25 Hct 27.8 % (37.5-50.1) L 08/04/17 04:25 MCHC 30.9 g/dL (31.6-35.5) L 08/04/17 04:25 RDW 20.6 % (11.5-14.5) H 08/04/17 04:25 PT 15.9 Seconds (9.4-12.1) H 08/01/17 03:24 Chloride 110 mEq/L (98-107) H 08/04/17 04:25 Carbon Dioxide 21 mEq/L (23-29) L 08/04/17 04:25 BUN 30 mg/dL (8-23) H 08/04/17 04:25 BUN/Creatinine Ratio 33 (6-26) H 08/04/17 04:25 POC Glucose 114 (58-89) H 08/03/17 20:48 Calcium 7.8 mg/dL (8.6-10.3) L 08/04/17 04:25 Total Bilirubin 6.4 mg/dL (0.3-1.0) H 08/01/17 03:24 Direct Bilirubin 4.0 mg/dL (0.0-0.2) H 08/01/17 03:24 Indirect Bilirubin 2.4 mg/dL (0.0-1.2) H 08/01/17 03:24 AST 213 Units/L (13-39) H 08/01/17 03:24 ALT 156 Units/L (7-52) H 08/01/17 03:24 Alkaline Phosphatase > 1500 Units/L (34-104) H 08/01/17 03:24 Albumin 2.9 g/dL (3.5-5.7) L 08/01/17 03:24 Globulin 3.8 g/dL (2.4-3.5) H 08/01/17 03:24 Albumin/Globulin Ratio 0.8 (1.1-2.2) L 08/01/17 03:24 Cholesterol 209 mg/dL (< 200) H 08/01/17 03:24 LDL Cholesterol, Calc 174 mg/dL (0-99) H 08/01/17 03:24 HDL Cholesterol 17 mg/dL (40-59) L 08/01/17 03:24 Cholesterol/HDL Ratio 12.3 (0-4.9) H 08/01/17 03:24 Amylase 16 Units/L (29-103) L 08/01/17 03:24 Lipase 204 Units/L (11-82) H 08/01/17 03:24 Hepatitis C Ab Screen Reactive (Nonreactive) H 07/31/17 20:58 General appearance: Present: no acute distress - Head Head exam: Present: atraumatic, normal inspection - Eye Eye exam: Present: normal appearance - ENT ENT exam: Present: mucous membranes moist - Neck Neck exam: Present: normal inspection - Respiratory Respiratory exam: Present: CTAB - Cardiovascular Cardiovascular exam: Present: irregular rhythm - GI/Abdominal GI/Abdominal exam: Present: normal bowel sounds, soft. Absent: tenderness - Extremities Exam Extremities exam: Absent: pedal edema, tenderness - Neurological Exam Neurological exam: Present: alert - Psychiatric Psychiatric exam: Absent: agitated, anxious - Skin Skin exam: Present: dry, warm Palliative Quality Palliative Quality: Screen for Code Status: Yes, Screen for Goals of Care: Yes, Screen for Pain: Yes, If Pain Regimen Started, Initiate Bowel Regimen: NA, Screen for Nausea/Vomitting: Yes Code Status: 08/02/17 14:44 DNR [Resuscitation Status: Active] [RES] Routine Comment: Resuscitation Status: [id number] - Labs CBC & Chem 7: 08/04/17 04:25 08/04/17 04:25 Labs: Laboratory Results - last 24 hr 08/03/17 08/03/17 08/03/17 08:34 11:28 20:48 WBC RBC Hgb Hct MCV MCH MCHC RDW Plt Count MPV Immature Gran % Seg Neutrophils % Lymphocytes % Monocytes % Eosinophils % Basophils % Neutrophils # Lymphocytes # Monocytes # Eosinophils # Basophils # Sodium Potassium Chloride Carbon Dioxide BUN Creatinine Est GFR ( Amer) Est GFR (Non-Af Amer) BUN/Creatinine Ratio Glucose POC Glucose 84 152 H 114 H Calculated Osmolality Calcium 08/04/17 08/04/17 04:25 04:25 WBC 8.9 RBC 3.00 L Hgb 8.6 L Hct 27.8 L MCV 92.7 MCH 28.7 MCHC 30.9 L RDW 20.6 H Plt Count 306 MPV 11.3 Immature Gran % 1.9 Seg Neutrophils % 76.8 Lymphocytes % 7.8 Monocytes % 10.0 Eosinophils % 2.5 Basophils % 1.0 Neutrophils # 6.8 Lymphocytes # 0.7 Monocytes # 0.9 Eosinophils # 0.2 Basophils # 0.1 Sodium 139 Potassium 4.0 Chloride 110 H Carbon Dioxide 21 L BUN 30 H Creatinine 0.91 Est GFR ( Amer) > 60 Est GFR (Non-Af Amer) > 60 BUN/Creatinine Ratio 33 H Glucose 105 POC Glucose Calculated Osmolality 295 Calcium 7.8 L - ABG Interpretation ABG results: PT/INR, D-dimer PT 15.9 Seconds (9.4-12.1) H 08/01/17 03:24 Consult Discharge Plan - Plan [facility]errals: [facility] [Primary Care Provider] -
[2017-08-04] MEDS: Doxycycline 100 MG CAPSULE PO SCH ×2 (08:47→21:27)
[2017-08-04] MEDS: Metoprolol XL (24 HR) Succ 25 MG TAB.ER.24H PO SCH (08:47)
[2017-08-04] MEDS: Lactobacillus 1 EACH CAP.SPRINK PO SCH ×2 (08:47→21:27)
[2017-08-04] MEDS: Tiotropium 18 MCG inhalation IH SCH (10:02)
--- NOTE | 2017-08-04 13:18 | Internal Med Progress Note ---
Date of Encounter: 08/04/17 Time of Encounter: 13:15 - Assessment and plan (1) Multifocal pneumonia Current Visit: No Status: Acute Assessment and plan: On Cefepime, doxycycline Doing well, will de escalate to Doxycycline today anticipating discharge tomorrow home with hospice is most likely. (2) Pancreatic mass Current Visit: Yes Status: Acute Assessment and plan: ERCP for pancreatic mass and stent placed today. Preliminary pathology results for adenocarcinoma at bedside does not desire to undergo aggressive measures. Palliative and Oncology has seen and evaluated patient. Will provide comfort measures to patient. Most likely home with hospice tomorrow. (3) Hypertension Current Visit: Yes Status: Acute Assessment and plan: On toprol XL Qualifiers: Hypertension type: essential hypertension Qualified Code(s): I10 - Essential (primary) hypertension (4) A-fib Current Visit: No Status: Chronic Assessment and plan: On toprol XL No anticoagulation therapy on home medications, likely patient age and fall risk related. Qualifiers: Atrial fibrillation type: unspecified Qualified Code(s): I48.91 - Unspecified atrial fibrillation (5) COPD (chronic obstructive pulmonary disease) Current Visit: No Status: Chronic Assessment and plan: Not in acute exacerbation Continue Spiriva Qualifiers: COPD type: unspecified COPD Qualified Code(s): J44.9 - Chronic obstructive pulmonary disease, unspecified (6) Dementia Current Visit: Yes Status: Chronic Qualifiers: Dementia type: unspecified type Dementia behavioral disturbance: without behavioral disturbance Qualified Code(s): F03.90 - Unspecified dementia without behavioral disturbance (7) HCV (hepatitis C virus) Current Visit: Yes Status: Acute Qualifiers: Viral hepatitis chronicity: unspecified Hepatic coma status: without hepatic coma Qualified Code(s): B19.20 - Unspecified viral hepatitis C without hepatic coma - Subjective Interval history: Patient returned from ERCP with sent placement. Preliminary pathology results positive for adeno carcinoma. MRI showed pancreas head mass is 3.1x2.1 cm and gallbladder is distended. Today patient receiving neb treatment. In good spirits today. No complaints, denies cp/sob/n/v/abdominal pain - Constitutional Vitals: Temp Pulse Resp BP Pulse Ox 97.7 F 72 20 161/84 90 08/04/17 11:52 08/04/17 11:52 08/04/17 11:52 08/04/17 11:52 08/04/17 11:52 General appearance: Present: cachectic, underweight Exam: AAOx2 CVS: RRR Lungs: CTAB Abd: soft, non-distended. + bowel sounds Ext: no edema, no cyanosis Skin: jaundiced Internal Medicine: Result - Labs CBC & Chem 7: 08/04/17 04:25 08/04/17 04:25 Labs: Short CBC 08/04/17 Range/Units 04:25 WBC 8.9 (4.3-11.1) K/mcL Hgb 8.6 L (12.9-16.9) g/dL Hct 27.8 L (37.5-50.1) % Plt Count 306 (140-400) K/mcL Neutrophils # 6.8 (1.6-8.9) K/mcL BMP 08/04/17 04:25 Sodium 139 Potassium 4.0 Chloride 110 H Carbon Dioxide 21 L BUN 30 H Creatinine 0.91 Glucose 105 Calcium 7.8 L - ABG Interpretation ABG results: PT/INR, D-dimer PT 15.9 Seconds (9.4-12.1) H 08/01/17 03:24 Consult Discharge Plan - Plan Referrals: [facility] [Primary Care Provider] -
[2017-08-04 15:34] LABS: HCV Quant Interpretation NOT DETECTED (Not Detected)
[2017-08-04] MEDS: *HR* LORazepam 0.5 MG TABLET PO PRN (21:27)
[2017-08-05] MEDS: Levalbuterol Neb 1.25 MG/3 ML IH SCH ×2 (03:46→10:58)
[2017-08-05 04:33] LABS: Basophils # 0.1 K/mcL (0.0-0.2); Basophils % 1.5 %; Eosinophils # 0.3 K/mcL (0.0-0.6); Eosinophils % 3.9 %; Hematocrit 27.1 % (37.5-50.1); Hemoglobin 8.4 g/dL (12.9-16.9); Immature Granulocytes % 2.4 % (0-4); Lymphocytes # 0.9 K/mcL (0.6-4.6); Lymphocytes % 10.6 %; Mean Corpuscular Hemoglobin 29.1 pg (28.0-33.3); Mean Corpuscular Volume 93.8 fL (83.0-100.0); Mean Platelet Volume 11.1 fL (9.4-12.4); Monocytes # 0.9 K/mcL (0.0-1.3); Neutrophils # 5.8 K/mcL (1.6-8.9); Platelet Count 298 K/mcL (140-400); Red Blood Count 2.89 M/mcL (4.19-5.50); Red Cell Distribution Width 20.2 % (11.5-14.5); Segmented Neutrophils % 70.6 %
[2017-08-05 04:58] LABS: BUN/Creatinine Ratio 34 (6-26); Blood Urea Nitrogen 28 mg/dL (8-23); Calcium 7.7 mg/dL (8.6-10.3); Carbon Dioxide 22 mEq/L (23-29); Chloride 112 mEq/L (98-107); Glucose 106 mg/dL (70-105); Osmolality,Calculated 296 (280-300); Potassium 4.2 mEq/L (3.5-5.1); Sodium 140 mEq/L (136-145); eGFR For African Americans > 60 (> 60); eGFR For Non-African Americans > 60 (> 60)
[2017-08-05] MEDS: *HR* Heparin 5,000 UNIT/ML VIAL SQ SCH (06:09)
--- NOTE | 2017-08-05 08:16 | Discharge Summary ---
Date of Encounter: 08/05/17 Time of Encounter: 08:13 - Discharge Diagnosis (1) Multifocal pneumonia Priority: Primary Status: Acute (2) Pancreatic mass Priority: Secondary Status: Acute (3) Hypertension Priority: Secondary Status: Acute Qualifiers: Hypertension type: essential hypertension Qualified Code(s): I10 - Essential (primary) hypertension (4) A-fib Priority: Secondary Status: Chronic Qualifiers: Atrial fibrillation type: unspecified Qualified Code(s): I48.91 - Unspecified atrial fibrillation (5) COPD (chronic obstructive pulmonary disease) Priority: Secondary Status: Chronic Qualifiers: COPD type: unspecified COPD Qualified Code(s): J44.9 - Chronic obstructive pulmonary disease, unspecified (6) Dementia Priority: Secondary Status: Chronic Qualifiers: Dementia type: unspecified type Dementia behavioral disturbance: without behavioral disturbance Qualified Code(s): F03.90 - Unspecified dementia without behavioral disturbance (7) HCV (hepatitis C virus) Priority: Secondary Status: Acute Qualifiers: Viral hepatitis chronicity: unspecified Hepatic coma status: without hepatic coma Qualified Code(s): B19.20 - Unspecified viral hepatitis C without hepatic coma - Discharge Medications Prescriptions: Doxycycline 100 mg PO BID #22 capsule Home Medications: Acetaminophen [Tylenol] 650 mg PO Q6H PRN 06/28/17 [History] Alendronate Sodium [Fosamax] 70 mg PO QWEEK 06/28/17 [History] Calcium Carbonate/Vitamin D3 [Calcium 250+D Tablet] 1 each PO BID 06/28/17 [ History] Cetirizine HCl [Zyrtec] 10 mg PO DAILY 06/28/17 [History] Cranberry 800 mg PO DAILY 06/28/17 [History] Furosemide [Lasix] 20 mg PO DAILY 06/28/17 [History] Leflunomide 10 mg PO Q48H 06/28/17 [History] Memantine HCl 10 mg PO BID 06/28/17 [History] Metoprolol XL (24 HR) Succ [Toprol Xl] 12.5 mg PO DAILY 06/28/17 [History] Potassium Chloride [Klor-Con 10] 10 meq PO DAILY 06/28/17 [History] Tiotropium [Spiriva] 18 mcg IH 0700 06/28/17 [History] Vit C/E/Zn/Coppr/Lutein/Zeaxan [Preservision Areds 2 Softgel] 1 cap PO BID 06/28 [History] Xyzal 5 mg PO DAILY 06/28/17 [History] Albuterol Neb [Proventil Neb] 2.5 mg IH Q4H #42 inhsol 07/02/17 [Rx] L. Acidophilus/Pectin, [place] [Acidophilus Probiotic Capsule] 1 each PO BID [History] Doxycycline 100 mg PO BID #22 capsule 08/05/17 [Rx] Allergies/Adverse Reactions: 3 Allergy/AdvReac Type Severity Reaction Status Date / Time levofloxacin [From Levaquin] Allergy See Verified 06/28/17 16:59 Comments lisinopril Allergy Swelling Verified 06/28/17 17:00 of Lip/Tongue/Throat methotrexate Allergy See Verified 06/28/17 17:00 Comments naproxen [From Aleve] Allergy Swelling Verified 06/28/17 17:00 of Lip/Tongue/Throat Donepezil [From Aricept] AdvReac See Verified 06/28/17 17:27 Comments Procedures/tests Complete & Pending: Procedures Performed prior 72 hours Category Date Time Status MR abdomen wo/w con [MR] Stat MRI 08/02/17 08:00 Completed Date of admission: 08/01/17 00:57 [facility] care [facility] Consults: 08/02/17 16:18 Consult to Palliative Care [CONS] Routine Comment: Consulting Provider: Palliative Care Dulce Maria Reason for Consult: already talked to pall team, pts needs support and questions about poss hospice Call Completed: Yes 08/02/17 17:12 Consult to Oncology Hematology [CONS] Routine Consulting Provider: Shaka Han Reason for Consult: Adenocarcinoma pancreas Call Completed: Yes Discharging clinician: Laureen Izaguirre - Patient Status Disposition: Hospice - Home Condition: Fair Functional capacity at discharge: independent ambulation Overall status at discharge: patient is not back to baseline - Discharge Instructions Follow Up With: [facility] [Primary Care Provider] - - Diet and Activity Activity: increase activity as tolerated Diet: advance to your usual diet Hospital course: Mr. Shepherd is a 89 year old male who was sent to our ER from [facility]. He was following with his PCP today for recent hospitalization for pneumonia. He had worsening pneumonia on chest x-ray and abnormal LFTs. This prompted CT scan of his abdomen, which revealed pancreatic mass. As such, he was transferred to our ER. Work-up in the ER included routine labs and initiation of antibiotics. He was subsequently admitted to the hospitalist service. He was seen to have obstructive jaundice. Patient was a very poor historian, hard of hearing, and suffers from dementia. He is unable to provide much history other than the fact he was hospitalized recently for pneumonia. Upon further questioning, he admits to some weight loss , coughing, and shortness of breath. No further history could be obtained from patient. We were unable to find any of his [place] records and/or documents of lab testing and imaging testing done at the [facility]. Most of information was obtained from ER records and limited old records. There are no family members present at the bedside to confirm any further history. He was started on Vanc/Rocephin/Zithromax, transitioned to Cefepime and was able to de- escalate to Doxycycline and remained stable. Patient breathing improved. GI was consulted for pancreatic mass. He had ERCP done with stent placement for obstructive jaundice. Patient did get symptomatic relief. 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 Palliative service and Oncology services were consulted. opted for hospice care instead of aggressive treatment measures. This is being set up home with hospice at time of discharge. He was discharged home to complete doxycycline. Follow-up: - Patient had tachycardia 90s-108s. SBP 110-150s. Consider increasing metoprolol dose. Has known history of atrial fibrillation so HR <110 could be considered acceptable. Also SBP based on age may be acceptable as well per J[place] guidelines. Given current prognosis, I did not get aggressive with BP management. - Pending official biopsy results - Oncology follow-up - Time Spent with Patient Total time spent providing and/or coordinating discharge services: - Constitutional Vitals: Temp Pulse Resp BP Pulse Ox 97.5 F L 86 17 155/89 94 08/05/17 07:40 08/05/17 07:40 08/05/17 07:40 08/05/17 07:40 08/05/17 07:40 General appearance: Present: cachectic, underweight - Head Head exam: Present: atraumatic, normocephalic - Respiratory Respiratory exam: Present: decreased breath sounds, CTAB. Absent: accessory muscle use, rales, rhonchi, wheezes - Cardiovascular Cardiovascular exam: Present: tachycardia - GI/Abdominal GI/Abdominal exam: Present: normal bowel sounds, soft, no peritoneal signs. Absent: distended, tenderness - Skin Additional comments: jaundice
--- NOTE | 2017-08-05 08:28 | Physician Discharge Referral ---
Home Health/Hosp Referral Info Transfer to: Hospice Provider in Charge Post Discharge: PCP - Diagnosis (1) Multifocal pneumonia Priority: Primary Status: Acute (2) Pancreatic mass Priority: Secondary Status: Acute (3) Hypertension Priority: Secondary Status: Acute (4) A-fib Priority: Secondary Status: Chronic (5) COPD (chronic obstructive pulmonary disease) Priority: Secondary Status: Chronic (6) Dementia Priority: Secondary Status: Chronic (7) HCV (hepatitis C virus) Priority: Secondary Status: Acute - Respiratory Orders Smoking Cessation: Smoking cessation has been advised. For more information, call the [place] Tobacco Quit Line at 0-733-PNXD-NOW. - Diet/Nutrition Diet/Nutrition Orders: Cardiac - Activity Activity Orders: Walker - Services Needed Following services are medically necessary services: Nursing, Home Health Aide, Physical Therapy, Occupational Therapy - Transfer Medications Prescriptions: Doxycycline 100 mg PO BID #22 capsule Home Medications: Acetaminophen [Tylenol] 650 mg PO Q6H PRN 06/28/17 [History] Alendronate Sodium [Fosamax] 70 mg PO QWEEK 06/28/17 [History] Calcium Carbonate/Vitamin D3 [Calcium 250+D Tablet] 1 each PO BID 06/28/17 [ History] Cetirizine HCl [Zyrtec] 10 mg PO DAILY 06/28/17 [History] Cranberry 800 mg PO DAILY 06/28/17 [History] Furosemide [Lasix] 20 mg PO DAILY 06/28/17 [History] Leflunomide 10 mg PO Q48H 06/28/17 [History] Memantine HCl 10 mg PO BID 06/28/17 [History] Metoprolol XL (24 HR) Succ [Toprol Xl] 12.5 mg PO DAILY 06/28/17 [History] Potassium Chloride [Klor-Con 10] 10 meq PO DAILY 06/28/17 [History] Tiotropium [Spiriva] 18 mcg IH 0700 06/28/17 [History] Vit C/E/Zn/Coppr/Lutein/Zeaxan [Preservision Areds 2 Softgel] 1 cap PO BID 06/28 [History] Xyzal 5 mg PO DAILY 06/28/17 [History] Albuterol Neb [Proventil Neb] 2.5 mg IH Q4H #42 inhsol 07/02/17 [Rx] L. Acidophilus/Pectin, [place] [Acidophilus Probiotic Capsule] 1 each PO BID [History] Doxycycline 100 mg PO BID #22 capsule 08/05/17 [Rx] Allergies/Adverse Reactions: 3 Allergy/AdvReac Type Severity Reaction Status Date / Time levofloxacin [From Levaquin] Allergy See Verified 06/28/17 16:59 Comments lisinopril Allergy Swelling Verified 06/28/17 17:00 of Lip/Tongue/Throat methotrexate Allergy See Verified 06/28/17 17:00 Comments naproxen [From Aleve] Allergy Swelling Verified 06/28/17 17:00 of Lip/Tongue/Throat Donepezil [From Aricept] AdvReac See Verified 06/28/17 17:27 Comments Certification: Further, I certify that my clinical findings support that this patient is homebound (i.e. absences from home require considerable and taxing effort and are for medical reasons or restoration services or infrequently or short duration when for other reasons) because: Homebound Reason: Patient requires assistance of a person or device to safely leave home, Severity of cardiac or pulmonary status limits activity tolerance Attestation: My signature below is to certify that this patient is under my care and that I, or nurse practitioner, or a physician's certified surgical tech/first assistant working with me, has a face-to -face encounter with this patient.
--- NOTE | 2017-08-05 08:42 | Palliative Progress Note ---
Date of Encounter: 08/05/17 Time of Encounter: 08:40 - Assessment and plan (1) Anxiety Current Visit: Yes Status: Acute (2) Generalized pain Current Visit: Yes Status: Acute Assessment and plan: Has Tramadol ordered for pain, but hasn't utilized in 3 days. Monitor (3) Counseling regarding advanced care planning and goals of care Current Visit: Yes Status: Acute Assessment and plan: Awaiting to arrive - anticipate will discharge home with hospice. (4) HCAP (healthcare-associated pneumonia) Current Visit: Yes Status: Acute (5) COPD (chronic obstructive pulmonary disease) Current Visit: No Status: Chronic Qualifiers: COPD type: unspecified COPD Qualified Code(s): J44.9 - Chronic obstructive pulmonary disease, unspecified (6) Pancreatic mass Current Visit: Yes Status: Acute (7) Dementia Current Visit: Yes Status: Chronic Qualifiers: Dementia type: unspecified type Dementia behavioral disturbance: without behavioral disturbance Qualified Code(s): F03.90 - Unspecified dementia without behavioral disturbance - Time Spent With Patient Total time spent is greater than 50% in coordination of care (as documented) at patient's floor/unit and/or counseling patient: - Subjective Interval history: Patient up in chair, eating breakfast. Has no complaints. Excited to go home this afternoon. not here as of yet. - Constitutional Vitals: Abnormal lab results RBC 2.89 M/mcL (4.19-5.50) L 08/05/17 04:07 Hgb 8.4 g/dL (12.9-16.9) L 08/05/17 04:07 Hct 27.1 % (37.5-50.1) L 08/05/17 04:07 MCHC 31.0 g/dL (31.6-35.5) L 08/05/17 04:07 RDW 20.2 % (11.5-14.5) H 08/05/17 04:07 PT 15.9 Seconds (9.4-12.1) H 08/01/17 03:24 Chloride 112 mEq/L (98-107) H 08/05/17 04:07 Carbon Dioxide 22 mEq/L (23-29) L 08/05/17 04:07 BUN 28 mg/dL (8-23) H 08/05/17 04:07 BUN/Creatinine Ratio 34 (6-26) H 08/05/17 04:07 Glucose 106 mg/dL (70-105) H 08/05/17 04:07 POC Glucose 106 (58-89) H 08/04/17 07:40 Calcium 7.7 mg/dL (8.6-10.3) L 08/05/17 04:07 Total Bilirubin 6.4 mg/dL (0.3-1.0) H 08/01/17 03:24 Direct Bilirubin 4.0 mg/dL (0.0-0.2) H 08/01/17 03:24 Indirect Bilirubin 2.4 mg/dL (0.0-1.2) H 08/01/17 03:24 AST 213 Units/L (13-39) H 08/01/17 03:24 ALT 156 Units/L (7-52) H 08/01/17 03:24 Alkaline Phosphatase > 1500 Units/L (34-104) H 08/01/17 03:24 Albumin 2.9 g/dL (3.5-5.7) L 08/01/17 03:24 Globulin 3.8 g/dL (2.4-3.5) H 08/01/17 03:24 Albumin/Globulin Ratio 0.8 (1.1-2.2) L 08/01/17 03:24 Cholesterol 209 mg/dL (< 200) H 08/01/17 03:24 LDL Cholesterol, Calc 174 mg/dL (0-99) H 08/01/17 03:24 HDL Cholesterol 17 mg/dL (40-59) L 08/01/17 03:24 Cholesterol/HDL Ratio 12.3 (0-4.9) H 08/01/17 03:24 Amylase 16 Units/L (29-103) L 08/01/17 03:24 Lipase 204 Units/L (11-82) H 08/01/17 03:24 CA 19-9 Antigen 93 U/mL (0-37) H 08/01/17 09:24 Hepatitis C Ab Screen Reactive (Nonreactive) H 07/31/17 20:58 General appearance: Present: no acute distress - Respiratory Additional comments: Expiratory wheezed and rhonchi throughout - Cardiovascular Cardiovascular exam: Present: +S1, +S2 - GI/Abdominal GI/Abdominal exam: Present: normal bowel sounds, soft - Extremities Exam Extremities exam: Present: normal capillary refill, normal inspection - Neurological Exam Neurological exam: Present: alert, oriented X3, strengths equal and symetr throughout - Skin Skin exam: Present: dry, pallor, warm Palliative Quality Palliative Quality: Screen for Code Status: Yes, Screen for Goals of Care: Yes, Screen for Pain: Yes, If Pain Regimen Started, Initiate Bowel Regimen: NA, Screen for Nausea/Vomitting: Yes Code Status: 08/02/17 14:44 DNR [Resuscitation Status: Active] [RES] Routine Comment: Resuscitation Status: [id number] - Labs CBC & Chem 7: 08/05/17 04:07 08/05/17 04:07 Labs: Laboratory Results - last 24 hr 08/01/17 08/03/17 08/04/17 09:24 16:54 07:40 WBC RBC Hgb Hct MCV MCH MCHC RDW Plt Count MPV Immature Gran % Seg Neutrophils % Lymphocytes % Monocytes % Eosinophils % Basophils % Neutrophils # Lymphocytes # Monocytes # Eosinophils # Basophils # Sodium Potassium Chloride Carbon Dioxide BUN Creatinine Est GFR ( Amer) Est GFR (Non-Af Amer) BUN/Creatinine Ratio Glucose POC Glucose 138 H 106 H Calculated Osmolality Calcium CA 19-9 Antigen 93 H 08/05/17 08/05/17 04:07 04:07 WBC 8.2 RBC 2.89 L Hgb 8.4 L Hct 27.1 L MCV 93.8 MCH 29.1 MCHC 31.0 L RDW 20.2 H Plt Count 298 MPV 11.1 Immature Gran % 2.4 Seg Neutrophils % 70.6 Lymphocytes % 10.6 Monocytes % 11.0 Eosinophils % 3.9 Basophils % 1.5 Neutrophils # 5.8 Lymphocytes # 0.9 Monocytes # 0.9 Eosinophils # 0.3 Basophils # 0.1 Sodium 140 Potassium 4.2 Chloride 112 H Carbon Dioxide 22 L BUN 28 H Creatinine 0.83 Est GFR ( Amer) > 60 Est GFR (Non-Af Amer) > 60 BUN/Creatinine Ratio 34 H Glucose 106 H POC Glucose Calculated Osmolality 296 Calcium 7.7 L CA 19-9 Antigen - ABG Interpretation ABG results: PT/INR, D-dimer PT 15.9 Seconds (9.4-12.1) H 08/01/17 03:24 Consult Discharge Plan - Plan [facility]errals: [facility] [Primary Care Provider[facility] - 08/12/17 12:30 pm (Please follow up as schedule...) Prescriptions: Doxycycline 100 mg PO BID #22 capsule
[2017-08-05] MEDS: Metoprolol XL (24 HR) Succ 25 MG TAB.ER.24H PO SCH (09:17)
[2017-08-05] MEDS: Doxycycline 100 MG CAPSULE PO SCH (09:17)
[2017-08-05] MEDS: Lactobacillus 1 EACH CAP.SPRINK PO SCH (09:18)
[2017-08-05 09:41] LABS: HCV Genotype by Sequencing INDETERMINATE
[2017-08-05] MEDS: Tiotropium 18 MCG inhalation IH SCH (10:58)
[2017-08-05 11:48] VITALS: BP 141/92
[2017-08-05 12:50] LABS: Alanine Aminotransferase 94 Units/L (7-52); Albumin 2.7 g/dL (3.5-5.7); Albumin/Globulin Ratio 0.8 (1.1-2.2); Alkaline Phosphatase 1325 Units/L (34-104); Aspartate Amino Transferase 65 Units/L (13-39); Bilirubin,Direct 1.6 mg/dL (0.0-0.2); Bilirubin,Indirect 1.6 mg/dL (0.0-1.2); Bilirubin,Total 3.2 mg/dL (0.3-1.0); Globulin 3.3 g/dL (2.4-3.5)
[2017-08-07 08:11] LABS: Mycoplasma pneumoniae IgG 1.61 U/L (<=0.09)
== END 2017-08-05 14:08 | disposition hospice, home (50) | DRG 435 ==
LOC: EMEROO 20:02 → 2ANU 20:02
PROVIDERS: ADMIT Internal Medicine; ATTEND Internal Medicine
PROC: ENDOEUS (2017-08-02 13:00)